=== PATIENT | female | born 1945 | race Caucasian/White ===

== ENCOUNTER 2020-03-24 12:29 | Outpatient (CLI) | payer MEDICARE, SELFPAY ==
--- NOTE | 2020-03-26 12:29 | WPDSIXMINUTE ---
Six Minute Walk Six Minute Walk: The patients O2 sats started at 95% and dropped as low as 90% Total walk distance 243.84 meters conclusion: Although there was significant exertional hypoxia this patient patient does not qualify for home oxygen therapy.
== END 2020-03-24 12:30 | disposition home or self-care (01) ==
PROVIDERS: PCP Family Medicine; Visit Provider Internal Medicine Critical Care Medicine
DX: R06.02 Shortness of breath (principal)
CPT/HCPCS: 94618

== ENCOUNTER 2020-06-14 10:46 | Outpatient (CLI) | payer MEDICARE, SELFPAY ==
--- NOTE | ~2020-06-14 | CT_ITS ---
EXAMINATION: CT chest w con DATE: 06/14/2020 12:19 INDICATION: Malignant neoplasm of the right upper lobe TECHNIQUE: Transaxial computed tomographic images of the chest were obtained after the administration of 75 cc of Omnipaque 350 intravenous contrast. The dose-length product (DLP) was 255.81 mGy-cm. Ite rative reconstruction was used. COMPARISON: 12/22/2019, 12/12/2019 FINDINGS: There is moderate emphysema. A 2.1 cm spiculated nodule of the right upper lobe is not sign ificantly changed. A 2.6 cm spiculated nodule of the left upper lobe is also not significantly change d. There is scarring in the lung apices. No pleural effusion or pneumothorax is identified. No pathol ogically enlarged thoracic lymph nodes are identified. The heart size is normal. There is a moderate- sized sliding hiatal hernia. There is mild thoracic spondylosis. IMPRESSION: 1. Stable spiculated nodules of the upper lobes, consistent with malignancy. Reviewed, dictated and finalized at location A. [employer]
[2020-06-14 12:03] LABS: Estimated Glomerular Filt Rate 44
== END 2020-06-14 10:47 | disposition home or self-care (01) ==
PROVIDERS: Family Provider Family Medicine; PCP Family Medicine; Visit Provider Internal Medicine Hematology & Oncology
DX: C34.11 Malignant neoplasm of upper lobe, right bronchus or lung (principal)
CPT/HCPCS: 71260; Q9967

== ENCOUNTER 2020-07-05 15:03 | Outpatient (CLI) | payer MEDICARE, SELFPAY ==
[2020-07-05 15:28] LABS: Basophils Absolute Auto 0.1 K/mm3 (0.0-0.1); Basophils Percent Auto 1.3 % (0.2-1.2); Eosinophils Absolute Auto 0.2 K/mm3 (0-0.3); Eosinophils Percent Auto 4.4 % (0-4.4); Hematocrit 34.9 % (37.0-47.0); Immature Granulocyte Absolute 0.01 K/mm3 (0.00-0.031); Immature Granulocyte Percent A 0.2 % (0-0.5); Lymphocytes Absolute Auto 0.99 K/mm3 (0.9-3.2); Lymphocytes Percent Auto 21.9 % (18.3-44.2); Mean Corpuscular HGB Conc 31.5 g/dl (32-36); Mean Corpuscular Hemoglobin 30.1 pg (26-34); Mean Corpuscular Volume 95.4 fl (80-100); Mean Platelet Volume 8.7 fl (7.4-10.4); Monocytes Absolute Auto 0.5 K/mm3 (0.1-0.6); Monocytes Percent Auto 11.3 % (2.6-8.5); Neutrophils Absolute Auto 2.8 K/mm3 (1.3-6.7); Neutrophils Percent Auto 60.9 % (45.5-73.1); Platelet Count Result 260 k/mm3 (150-375); Red Blood Count 3.66 M/mm3 (4.2-5.4); Red Cell Distribution Width 14.6 % (11.5-14.5); White Blood Count 4.5 K/mm3 (4.5-10.0)
[2020-07-05 15:33] LABS: Blood Urea Nitrogen 13 mg/dL (8-26); Carbon Dioxide 26 mmol/L (22-30); Chloride 105 mmol/L (98-109); Estimated Glomerular Filt Rate 40; Glucose 93 mg/dL (70-105); Potassium 4.2 mmol/L (3.5-4.9); Sodium 140 mmol/L (138-146)
[2020-07-05 17:29] LABS: Alanine Aminotransferase 17 U/L (4-35); Albumin Level 3.8 g/dL (3.5-5.1); Alkaline Phosphatase 98 U/L (38-126); Anion Gap 6 mmol/L (8-16); Aspartate Amino Transferase 27 U/L (14-36); Bilirubin,Total 0.8 mg/dL (0.2-1.3); Blood Urea Nitrogen 14 mg/dL (7-17); Calcium 9.1 mg/dL (8.4-10.2); Carbon Dioxide 26 mmol/L (22-30); Chloride 107 mmol/L (98-107); Estimated Glomerular Filt Rate 44; Glucose 96 mg/dL (65-105); Potassium 4.4 mmol/L (3.4-5.0); Sodium 139 mmol/L (137-145)
== END 2020-07-05 15:04 | disposition home or self-care (01) ==
LOC: ANHLAB 15:04
PROVIDERS: PCP Family Medicine; Visit Provider Internal Medicine Hematology & Oncology
DX: C34.11 Malignant neoplasm of upper lobe, right bronchus or lung (principal)
CPT/HCPCS: 36415; 80048; 80053; 85025

== ENCOUNTER 2020-09-06 13:33 | Outpatient (CLI) | payer MEDICARE, SELFPAY ==
--- NOTE | ~2020-09-06 | CT_ITS ---
EXAMINATION: CT diagnostic chest w con DATE: 09/06/2020 14:27 INDICATION: Right lung cancer TECHNIQUE: Computed tomography (CT) of the chest was performed with 75 cc Omnipaque 350 intravenous c ontrast. Automated exposure control and iterative reconstruction technique were employed. Exam dose: 224.72 mGy-cm total exam DLP. COMPARISON: 06/14/2020, 12/02/2019, 05/28/2019 CT chest examination 12/22/2019 PET/CT examination FINDINGS: There is interval diminished size of the highly PET positive right anterior apical lung mas s compared to 11/28/2019, currently measuring 18 mm maximally compared to approximately 21 mm maximal d imension on 12/02/2019. There is little interval change since 06/14/2020 There is mild improvement of mediastinal lymphadenopathy since 12/02/2019. Bilateral prominent apical irregular soft tissue scarring appears stable. Emphysematous changes are noted. No pulmonary infiltrate or consolidation or interval mass lesion is detected. Normal heart size. No thoracic aortic aneurysm or dissection. There is thoracic aortic and great vess el calcification. No pericardial or pleural effusion. Small sliding hiatal hernia. Normal morphology of the adrenal glands. No suspicious osteolytic or osteoblastic lesions are noted. IMPRESSION: Diminished size of right anterior apical pulmonary malignancy since 12/02/2019, relatively stable since 06/14/2020 Bilateral apical irregular stable soft tissue opacities, stable since 12/02/2019, possibly due to scarr ing. Malignancy is not definitively excluded. Continued CT and possibly PET/CT imaging follow-up shou ld be considered. Emphysema Reviewed, dictated and finalized at Location A. Reviewed, dictated and finalized at location A. IMPRESSION: Diminished size of right anterior apical pulmonary malignancy sinc e 12/02/2019, relatively stable since 06/14/2020 Bilateral apical irregular stable soft tissue opacities, stable since 12/02/2019, possibly due to scarring. Malignancy is not definitively excluded. Continued C T and possibly PET/CT imaging follow-up should be considered. Emphysema
[2020-09-06 14:17] LABS: Estimated Glomerular Filt Rate 40
== END 2020-09-06 13:34 | disposition home or self-care (01) ==
PROVIDERS: PCP Family Medicine; Visit Provider Internal Medicine Hematology & Oncology
DX: C34.11 Malignant neoplasm of upper lobe, right bronchus or lung (principal); J43.9 Emphysema, unspecified; R91.8 Other nonspecific abnormal finding of lung field
CPT/HCPCS: 71260; Q9967

== ENCOUNTER 2020-09-13 13:47 | Outpatient (CLI) | payer MEDICARE, SELFPAY ==
[2020-09-13 14:01] LABS: Basophils Percent Auto 0.5 % (0.2-1.2); Eosinophils Absolute Auto 0.1 K/mm3 (0-0.3); Eosinophils Percent Auto 2.4 % (0-4.4); Immature Granulocyte Absolute 0.03 K/mm3 (0.00-0.031); Immature Granulocyte Percent A 0.5 % (0-0.5); Lymphocytes Absolute Auto 1.21 K/mm3 (0.9-3.2); Lymphocytes Percent Auto 20.4 % (18.3-44.2); Mean Corpuscular Hemoglobin 33.3 pg (26-34); Mean Corpuscular Volume 104.2 fl (80-100); Mean Platelet Volume 8.3 fl (7.4-10.4); Monocytes Absolute Auto 0.6 K/mm3 (0.1-0.6); Monocytes Percent Auto 9.8 % (2.6-8.5); Neutrophils Percent Auto 66.4 % (45.5-73.1); Platelet Count Result 391 k/mm3 (150-375); Red Cell Distribution Width 19.9 % (11.5-14.5); White Blood Count 5.9 K/mm3 (4.5-10.0)
[2020-09-13 14:04] LABS: Blood Urea Nitrogen 15 mg/dL (8-26); Carbon Dioxide 26 mmol/L (22-30); Chloride 105 mmol/L (98-109); Estimated Glomerular Filt Rate 31; Glucose 104 mg/dL (70-105); Potassium 4.2 mmol/L (3.5-4.9); Sodium 139 mmol/L (138-146)
[2020-09-13 15:52] LABS: Immature Reticulocyte Fraction 15.1 % (3.0-15.9); Reticulocyte Hemoglobin Conten 39.5 pg (28.2-35.7); Reticulocyte Percent 1.86 % (0.7-4.3); Reticulocytes Absolute 0.05 B/L (32.2-175.7)
[2020-09-13 16:37] LABS: Iron 109 ug/dL (37-170)
[2020-09-13 16:40] LABS: Alanine Aminotransferase 17 U/L (4-35); Albumin Level 4.1 g/dL (3.5-5.1); Alkaline Phosphatase 119 U/L (38-126); Anion Gap 8 mmol/L (8-16); Aspartate Amino Transferase 26 U/L (14-36); Bilirubin,Total 0.8 mg/dL (0.2-1.3); Blood Urea Nitrogen 16 mg/dL (7-17); Calcium 9.5 mg/dL (8.4-10.2); Carbon Dioxide 25 mmol/L (22-30); Chloride 107 mmol/L (98-107); Estimated Glomerular Filt Rate 37; Glucose 107 mg/dL (65-105); Lactate Dehydrogenase 427 U/L (313-618); Potassium 4.4 mmol/L (3.4-5.0); Sodium 140 mmol/L (137-145)
[2020-09-13 16:51] LABS: Percent Iron Saturation 42 % (20-50)
[2020-09-13 18:02] LABS: Folic Acid > 20.0 ng/mL (2.76->20)
== END 2020-09-13 13:48 | disposition home or self-care (01) ==
LOC: ANHLAB 13:49
PROVIDERS: PCP Family Medicine; Visit Provider Internal Medicine Hematology & Oncology
DX: C34.11 Malignant neoplasm of upper lobe, right bronchus or lung (principal); D64.9 Anemia, unspecified; R53.83 Other fatigue
CPT/HCPCS: 36415; 80048; 80053; 82607; 82728; 82746; 83540; 83550; 83615; 84443; 85025; 85046

== ENCOUNTER 2020-10-25 13:12 | Outpatient (CLI) | payer MEDICARE, SELFPAY ==
--- NOTE | ~2020-10-25 | US_ITS ---
EXAMINATION: US venous doppler [facility] DATE: 10/25/2020 14:14 INDICATION: Lower limb swelling TECHNIQUE: Grayscale ultrasound images without and with compression and Doppler ultrasound images of the bilateral lower extremity veins were obtained. COMPARISON: None. FINDINGS: The visualized portions of right common femoral vein, profunda (deep) femoral vein, femoral vein, pop liteal vein, posterior tibial veins, peroneal veins, gastrocnemius vein and greater saphenous vein ou tflow are patent. The visualized portions of left common femoral vein, profunda femoral vein, femoral vein, popliteal v ein, posterior tibial veins, peroneal veins, gastrocnemius vein and greater saphenous vein outflow ar e patent. IMPRESSION: 1. No deep venous thrombosis in either lower limb. Reviewed, dictated and finalized at location A.
== END 2020-10-25 13:13 | disposition home or self-care (01) ==
PROVIDERS: PCP Family Medicine; Visit Provider Internal Medicine Nephrology
DX: R60.0 Localized edema (principal)
CPT/HCPCS: 93970

== ENCOUNTER 2020-10-31 13:40 | Outpatient (CLI) | payer MEDICARE, SELFPAY ==
[2020-10-31 17:42] LABS: Erythrocyte Sedimentation Rate > 140 mm/hr (0-20)
[2020-10-31 19:00] LABS: Complement C3 130 mg/dL (88-165)
[2020-10-31 19:18] LABS: Anion Gap 12 mmol/L (8-16); Blood Urea Nitrogen 19 mg/dL (7-17); Calcium 9.9 mg/dL (8.4-10.2); Carbon Dioxide 23 mmol/L (22-30); Chloride 105 mmol/L (98-107); Estimated Glomerular Filt Rate 37; Glucose 125 mg/dL (65-105); Phosphorus 3.5 mg/dL (2.5-4.5); Potassium 4.3 mmol/L (3.4-5.0); Sodium 140 mmol/L (137-145)
[2020-11-02 09:34] LABS: Kappa\\Lambda Light Chains 0.66 (0.26-1.65); Lambda Light Chain 60.9 mg/L (5.7-26.3)
[2020-11-02 13:37] LABS: Complement Total CH50 50 U/mL (31-60)
[2020-11-04 05:48] LABS: Albumin 19 %; Creat 24 Hr 1.05 g/24 h (0.50-2.15); Measured Kappa Chains <1.00 mg/dL (<2.00); Measured Lambda Chains <1.00 mg/dL (<2.00); Pro/Creat Ratio 87 mg/g creat (<=114)
== END 2020-10-31 13:41 | disposition home or self-care (01) ==
PROVIDERS: PCP Family Medicine; Visit Provider Internal Medicine Hematology & Oncology
DX: R94.4 Abnormal results of kidney function studies (principal)
CPT/HCPCS: 36415; 80069; 83883; 85652; 86038; 86160; 86162; 86334; 86335

== ENCOUNTER 2020-11-01 12:24 | Outpatient (CLI) | payer MEDICARE, SELFPAY ==
[2020-11-01 16:38] LABS: Add Urine Microscopic? YES; Appearance Urine Cloudy (Clear); Bacteria Urine Trace /hpf; Bilirubin Urine Negative (Negative); Blood Urine Negative (Negative); Color Urine Amber (Yellow); Glucose Urine UA Negative (Negative); Ketones Urine Negative (Negative); Leukocyte Esterase Ur Negative LEU/UL (NEGATIVE); Mucus Urine Heavy /lpf; Nitrate Urine Negative (Negative); Protein Urine 1+ mg/dL (Negative); RBC Urine 0-2 /hpf (0-2); Specific Grav Ur 1.027 (1.001-1.035); Squamous Epithelial Cell Urine Few /hpf (Few); WBC Urine 0-3 /hpf (0-3)
[2020-11-01 17:03] LABS: Creatinine Urine > 346.5 mg/dL; Total Protein Urine Random 6 mg/dL
[2020-11-01 17:12] LABS: Sodium Urine Random 35 meq/L
[2020-11-01 17:22] LABS: Ur Ttl Prot Creatinine Ratio > 0.00 mg/mg (0-0.20)
[2020-11-01 17:23] LABS: Eosinophil Urine None Seen % (None Seen)
== END 2020-11-01 12:25 | disposition home or self-care (01) ==
LOC: ANHLAB 12:27
PROVIDERS: PCP Family Medicine; Visit Provider Internal Medicine Nephrology
DX: R94.4 Abnormal results of kidney function studies (principal)
CPT/HCPCS: 81001; 82570; 84156; 84300; 85999

== ENCOUNTER 2020-11-16 13:45 | Outpatient (CLI) | payer MEDICARE, SELFPAY ==
--- NOTE | ~2020-11-16 | US_ITS ---
EXAMINATION: US art doppler w press UE BI DATE: 11/16/2020 14:39 INDICATION: Peripheral vascular disease, unspecified. TECHNIQUE: Segmental pressures and plethysmographic and Doppler waveforms of the upper extremity elisha juvenal were obtained. COMPARISON: Chest CT 09/06/2020 FINDINGS: Right and left brachial artery pressures of 156 mm Hg and 146 mm Hg, respectively, are concordant (no rmal difference <= 30 mmHg). The right finger:brachial systolic pressure ratio is 0.78 (normal > 0.8) . Arterial Doppler waveforms demonstrate normal upstroke (normal upstroke < 0.2 s). The left finger:brachial systolic pressure ratio is 0.75. Arterial Doppler waveforms demonstrate norm al upstroke. IMPRESSION: 1. Mildly decreased bilateral finger:brachial systolic pressure ratios, consistent with arterial occl usive disease. Reviewed, dictated and finalized at location A. IMPRESSION: 1. Mildly decreased bilateral finger:brachial systolic pressure ratios, consist ent with arterial occlusive disease.
--- NOTE | ~2020-11-16 | US_ITS ---
US renal BI 11/16/2020 14:38 Procedure: Realtime transabdominal ultrasound of the kidneys and bladder. Indication: Abnormal renal function Comparison: No prior studies for comparison. Findings: Renal echotexture is normal bilaterally without hydronephrosis, contour deforming mass or r enal calculus. The right kidney measures 8.5 cm and left kidney measures 8.4 cm. Bladder within norm al limits. Impression: 1: Unremarkable renal ultrasound. No stones, masses or hydronephrosis. Reviewed, dictated and finalized at location B. Impression: 1: Unremarkable renal ultrasound. No stones, masses or hydronephrosis.
== END 2020-11-16 13:46 | disposition home or self-care (01) ==
PROVIDERS: PCP Family Medicine; Referring Provider Physician Assistant; Visit Provider Internal Medicine Nephrology
DX: I73.9 Peripheral vascular disease, unspecified (principal)
CPT/HCPCS: 76775; 93923

== ENCOUNTER 2020-12-12 11:06 | Outpatient (CLI) | payer MEDICARE, SELFPAY ==
--- NOTE | ~2020-12-12 | CT_ITS ---
EXAMINATION: CT diagnostic chest wo con DATE: 12/12/2020 11:32 INDICATION: Malignant neoplasm of right upper lobe TECHNIQUE: Computed tomography (CT) of the chest was performed without intravenous contrast. Automate d exposure control and iterative reconstruction technique were employed. Exam dose: 253.89 mGy-cm to rocío exam DLP. COMPARISON: 09/06/2020 CT chest 06/14/2020 CT chest 12/02/2019 CT chest 05/28/2019 CT chest FINDINGS: There is chronic irregular soft tissue density in the anterolateral left apical area, relat ively stable since 05/28/2019. There is stability since 09/06/2020 of a prior approximately 8 mm spiculated density in the anterior r ight apical area, measuring up to 1.9 cm approximate maximal dimension currently, possibly residual m alignancy or possible postradiation change if there has been any such treatment. Correlation with cli nical history is recommended. PET/CT imaging may be helpful for further evaluation. There is chronic relatively stable right lateral apical scarring and scarring in the upper aspect of the superior segment of the right lower lobe. New 5 mm nodule is noted in the posterolateral aspect of the lingula (series 4 image 34), not present on 05/28/2019 09/06/2020. Stable linear discoid probable scarring in the lateral left lower lobe. No pulmonary infiltrate or consolidation. Emphysematous changes are again noted. Small sliding hiatal hernia. Normal heart size. No pericardial or pleural effusion. No thoracic aortic aneurysm is evident. No hilar or mediastinal mass lesion or lymphadenopathy is andrey dent. Normal morphology of the adrenal glands. IMPRESSION: No significant change since 09/06/2020 at anterior right apical irregular opacity which m ay represent postradiation residual if there was such therapy. Residual or recurrent malignancy is no t excluded. Consider continued CT follow-up and/or PET/CT correlation as clinically appropriate. Relatively stable areas of scarring are noted in the right lateral apical area, left apical area and superior segment of the right lower lobe New 5 mm nodule in the posterolateral lingula since 09/06/2020. Small primary lung cancer cannot be ex cluded. Emphysema Reviewed, dictated and finalized at Location A. Reviewed, dictated and finalized at location A. IMPRESSION: No significant change since 09/06/2020 at anterior right apical irr egular opacity which may represent postradiation residual if there was such the rapy. Residual or recurrent malignancy is not excluded. Consider continued CT f ollow-up and/or PET/CT correlation as clinically appropriate. Relatively stable areas of scarring are noted in the right lateral apical area, left apical area and superior segment of the right lower lobe New 5 mm nodule in the posterolateral lingula since 09/06/2020. Small primary mars ng cancer cannot be excluded. Emphysema
== END 2020-12-12 11:07 | disposition home or self-care (01) ==
LOC: ANHIMG 11:10
PROVIDERS: PCP Family Medicine; Visit Provider Radiology Radiation Oncology
DX: C34.11 Malignant neoplasm of upper lobe, right bronchus or lung (principal); J43.9 Emphysema, unspecified; R91.8 Other nonspecific abnormal finding of lung field
CPT/HCPCS: 71250

== ENCOUNTER 2020-12-21 08:38 | Outpatient (CLI) | payer MEDICARE, SELFPAY ==
--- NOTE | ~2020-12-21 | PE_ITS ---
EXAMINATION: PET skull to mid thigh DATE: 12/21/2020 10:40 INDICATION: Malignant neoplasm of the right upper lobe bronchus TECHNIQUE: Blood glucose level was 90 mg/dL. 9.448 mCi of 18-fluorodeoxyglucose (18-FDG) was administ ered i.v. Low dose computed tomography (CT) images were acquired from the base of the brain to the pr oximal thighs for attenuation correction and anatomic localization. Positron emission tomography (PET ) images were acquired in the same distribution beginning 57 minutes after injection. Images includin g fused PET/CT images were reconstructed in axial, coronal, and sagittal planes. Automated exposure c ontrol technique was employed. The dose-length product was 924.77mGy-cm. COMPARISON: PET/CT dated 12/22/[address] dated 12/12/2020 FINDINGS: Head/neck: There is symmetric increased activity in the oral cavity, palatine tonsils, parotid glands, submandi bular glands, laryngeal muscles and ocular muscles without CT correlate, likely physiologic. Mild inc reased uptake at the left C7-T1 facet joint where there is severe associated facet osteoarthritis. No pathologically enlarged cervical lymphadenopathy or suspicious foci of increased FDG uptake in the v isualized head or neck. Chest: Moderate emphysema. There is a 2.4 x 1.8 cm thick crescentic nodular opacity at the anterior apex of the right lung at the site of a prior 2.4 x 1.6 cm round spiculated nodule with high degree of FDG up take. The FDG uptake is markedly decreased in the current study with maximal SUV of 2.7 which is less than that of the liver which demonstrates a maximal SUV of 3.6 with a mean of 2.6. There is increased FDG uptake with maximal SUV of 5.0 associated with a persistent irregular nodular opacity anterior apex of the left lung. This appears comprised of approximately 2.1 x 1.7 cm spiculat ed nodule superimposed on a more linear band of atelectasis/scarring the latter which appears to have increased in thickness since CT dated 05/28/2019 but with no significant interval change in the centra l spiculated nodule. There is some groundglass opacity and architectural distortion at the posterior right apex with sugge stion of tethering of the major fissure to a region of peripheral pleural thickening and likely minim al round atelectasis at the posterior apical segment of the right lower lobe which has been present s alejandrina 05/28/2019 and images without significant FDG uptake. No pleural effusion. Heart size is normal. No pericardial effusion. No pathologically enlarged or FDG avid thoracic lympha denopathy. There are several foci of mild increased FDG uptake in the posterior chest wall, the most intense with maximal SUV of 2.9. These localise to the musculature along the medial margins of the le ft and to lesser degree degree right scapula which are without radiologic correlate an which are like ly physiologic. Additional likely physiologic mildly increased synovial uptake at the bilateral shoul ders with mild asymmetric increased uptake at the rotator cuff insertion along the right greater tube rosity likely related to rotator cuff disease. Additional mild synovial uptake at the bilateral elbow s and in the wrists and hands suggesting arthritis either degenerative or inflammatory. Abdomen/pelvis/proximal thighs: Physiologic renal accumulation and excretion of FDG activity in the kidneys, bladder and along portio ns of ureters. Normal degree and heterogenous pattern of increased uptake throughout the liver withou t radiologic correlate or dominant FDG avid lesion. The gallbladder, pancreas, spleen and bilateral a drenal glands are normal. Mild uptake scattered throughout the bowels without radiologic correlate, a lso likely physiologic. Appendix is normal. The uterus is not identified and has likely been surgical ly resected. There is diffuse mild increased in bone marrow FDG uptake most prominent throughout the spine a
[2020-12-21 09:10] LABS: Glucose Point of Care 90 mg/dl (65-105)
== END 2020-12-21 08:39 | disposition home or self-care (01) ==
PROVIDERS: PCP Family Medicine; Visit Provider Radiology Radiation Oncology
DX: C34.11 Malignant neoplasm of upper lobe, right bronchus or lung (principal); R91.8 Other nonspecific abnormal finding of lung field
CPT/HCPCS: 78815; A9552

== ENCOUNTER 2021-02-01 14:20 | Outpatient (CLI) | payer MEDICARE, SELFPAY ==
--- NOTE | ~2021-02-01 | XR_ITS ---
Please refer to right foot series dated 02/01/2021 for details. Reviewed, dictated and finalized at location A.
--- NOTE | ~2021-02-01 | XR_ITS ---
XR hand BI arthritis min 3V 02/01/2021 15:06 Indication: Osteoarthritis Procedure: 4 views each hand Comparison: No prior studies for comparison. Findings: Diffuse osteopenia. There is mild polyarticular osteoarthritis of both hands including the MCP and interphalangeal joints bilaterally. No erosive changes are identified. No acute fracture or t raumatic malalignment. No significant soft tissue abnormality. No foreign body. 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 2: Osteopenia. Reviewed, dictated and finalized at location A. 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 2: Osteopenia.
--- NOTE | ~2021-02-01 | XR_ITS ---
XR foot RT standing 2V 02/01/2021 15:06 Indication: Bilateral foot pain. Rheumatoid arthritis. Procedure: 2 views of each foot Comparison: No prior studies for comparison. Findings: Osteopenia. There are erosions of the left second metatarsal head. Small degenerative calca mylene enthesophytes. No fracture or traumatic malalignment. There are mild degenerative changes of the first metatarsal-phalangeal joints. Impression: 1: Erosions of the left second metatarsal head, suspicious for inflammatory arthropathy. 2: Osteopenia. Reviewed, dictated and finalized at location A. Impression: 1: Erosions of the left second metatarsal head, suspicious for inflammatory art hropathy. 2: Osteopenia.
== END 2021-02-01 14:21 | disposition home or self-care (01) ==
LOC: ANHIMG 14:24
PROVIDERS: PCP Family Medicine; Visit Provider Internal Medicine
DX: M85.842 Other specified disorders of bone density and structure, left hand (principal); M85.841 Other specified disorders of bone density and structure, right hand; M19.042 Primary osteoarthritis, left hand; M19.041 Primary osteoarthritis, right hand; M06.09 Rheumatoid arthritis without rheumatoid factor, multiple sites
CPT/HCPCS: 36415; 73130; 73620; 80053; 81001; 85027; 86038; 86140; 86200; 86430

== ENCOUNTER 2021-02-01 15:28 | Outpatient (CLI) | payer MEDICARE, SELFPAY ==
[2021-02-01 15:43] LABS: Hematocrit 36.4 % (37.0-47.0); Hemoglobin 11.7 g/dL (12.0-15.0); Mean Corpuscular HGB Conc 32.1 g/dl (32-36); Mean Corpuscular Hemoglobin 32.2 pg (26-34); Mean Corpuscular Volume 100.3 fl (80-100); Mean Platelet Volume 8.5 fl (7.4-10.4); Platelet Count Result 361 k/mm3 (150-375); Red Blood Count 3.63 M/mm3 (4.2-5.4); Red Cell Distribution Width 12.7 % (11.5-14.5); White Blood Count 6.5 K/mm3 (4.5-10.0)
[2021-02-01 16:38] LABS: Alanine Aminotransferase 20 U/L (4-35); Albumin Level 4.3 g/dL (3.5-5.1); Alkaline Phosphatase 135 U/L (38-126); Anion Gap 8 mmol/L (8-16); Aspartate Amino Transferase 53 U/L (14-36); Bilirubin,Total 0.6 mg/dL (0.2-1.3); Blood Urea Nitrogen 15 mg/dL (7-17); CRP 0.8 mg/dL (<1.0); Calcium 9.8 mg/dL (8.4-10.2); Carbon Dioxide 26 mmol/L (22-30); Chloride 103 mmol/L (98-107); Estimated Glomerular Filt Rate 36; Glucose 106 mg/dL (65-110); Potassium 3.9 mmol/L (3.4-5.0); Sodium 137 mmol/L (137-145)
[2021-02-01 16:39] LABS: Add Urine Microscopic? YES; Appearance Urine Clear (Clear); Bilirubin Urine Negative (Negative); Blood Urine Negative (Negative); Color Urine Amber (Yellow); Glucose Urine UA Negative (Negative); Ketones Urine Negative (Negative); Leukocyte Esterase Ur Negative LEU/UL (Negative); Mucus Urine Heavy /lpf; Nitrate Urine Negative (Negative); Protein Urine 2+ mg/dL (Negative); Specific Grav Ur 1.025 (1.001-1.035); Squamous Epithelial Cell Urine Many /hpf (Few)
[2021-02-04 15:53] LABS: Anti Cyclic Citrullinated Pept >250 Units (<20)
== END 2021-02-01 15:29 | disposition home or self-care (01) ==
LOC: ANHLAB 15:31
PROVIDERS: PCP Family Medicine; Visit Provider Internal Medicine
DX: M19.90 Unspecified osteoarthritis, unspecified site (principal); M06.09 Rheumatoid arthritis without rheumatoid factor, multiple sites
CPT/HCPCS: 36415; 80053; 81001; 85027; 86038; 86140; 86200; 86430

== ENCOUNTER 2021-02-20 14:15 | Outpatient (CLI) | payer MEDICARE, SELFPAY ==
[2021-02-20 16:54] LABS: Creatinine Urine 279.4 mg/dL; Total Protein Urine Random 12 mg/dL; Ur Ttl Prot Creatinine Ratio 0.04 mg/mg (0-0.20)
[2021-02-20 17:12] LABS: Albumin Level 4.1 g/dL (3.5-5.1); Anion Gap 7 mmol/L (8-16); Blood Urea Nitrogen 13 mg/dL (7-17); Calcium 9.4 mg/dL (8.4-10.2); Carbon Dioxide 27 mmol/L (22-30); Chloride 105 mmol/L (98-107); Estimated Glomerular Filt Rate 40; Glucose 115 mg/dL (65-110); Phosphorus 3.6 mg/dL (2.5-4.5); Sodium 139 mmol/L (137-145)
== END 2021-02-20 14:16 | disposition home or self-care (01) ==
LOC: ANHLAB 14:19
PROVIDERS: PCP Family Medicine; Visit Provider Internal Medicine Nephrology
DX: R94.4 Abnormal results of kidney function studies (principal)
CPT/HCPCS: 36415; 80069; 82570; 84156

== ENCOUNTER 2021-02-26 12:33 | Outpatient (CLI) | payer MEDICARE, SELFPAY ==
--- NOTE | ~2021-02-26 | CT_ITS ---
EXAMINATION:CT diagnostic chest wo con DATE: 02/26/2021 12:54 INDICATION: Non-small cell cancer of right lung. TECHNIQUE: Computed tomography (CT) of the chest was performed without intravenous contrast. Automate d exposure control and iterative reconstruction technique were employed. The dose-length product (DLP ) was 440.39 mGy-cm. COMPARISON: Chest CT 12/12/2020, 06/14/2020, 12/02/2019, 05/28/2019, PET/CT 10/19/14 FINDINGS: There is mild emphysema. There are airspace opacities and septal thickening involving the u pper lobes and superior segment right lower lobe with architectural distortion, consistent with scarr ing, much of which was present on 10/19/14. There are airspace opacities and septal thickening in righ t upper lobe, consistent with radiation fibrosis. The area of the malignancy in apical segment right upper lobe seen best on 12/02/19 is obscured by radiation fibrosis. No pleural effusion. The heart size is normal. There are coronary artery calcifications. No pericardial effusion. There is a 10 x 13 mm right paratracheal lymph node, stable from 10/19/14, likely benign. There is a small sliding hiatal he rnia. The adrenal glands are normal. There is thoracic kyphosis and mild spondylosis. IMPRESSION: 1. Radiation fibrosis in right upper lobe. Chronic scarring in the upper lobes and superior segment r ight lower lobe. No specific evidence of metastatic disease. Reviewed, dictated and finalized at location A. IMPRESSION: 1. Radiation fibrosis in right upper lobe. Chronic scarring in the upper lobes and superior segment right lower lobe. No specific evidence of metastatic disea se.
== END 2021-02-26 12:34 | disposition home or self-care (01) ==
LOC: ANHIMG 12:34
PROVIDERS: PCP Family Medicine; Visit Provider Internal Medicine Hematology & Oncology
DX: C34.91 Malignant neoplasm of unspecified part of right bronchus or lung (principal); J70.1 Chronic and other pulmonary manifestations due to radiation
CPT/HCPCS: 71250

== ENCOUNTER 2021-06-13 14:03 | Outpatient (CLI) | payer MEDICARE, SELFPAY ==
[2021-06-13 14:26] LABS: Hematocrit 37.4 % (37.0-47.0); Hemoglobin 11.3 g/dL (12.0-15.0); Mean Corpuscular HGB Conc 30.2 g/dl (32-36); Mean Corpuscular Hemoglobin 29.9 pg (26-34); Mean Corpuscular Volume 98.9 fl (80-100); Mean Platelet Volume 8.6 fl (7.4-10.4); Platelet Count Result 367 k/mm3 (150-375); Red Blood Count 3.78 M/mm3 (4.2-5.4); Red Cell Distribution Width 13.5 % (11.5-14.5); White Blood Count 5.7 K/mm3 (4.5-10.0)
[2021-06-13 15:07] LABS: Albumin Level 3.9 g/dL (3.5-5.1); Anion Gap 8 mmol/L (8-16); Blood Urea Nitrogen 16 mg/dL (7-17); Calcium 9.3 mg/dL (8.4-10.2); Carbon Dioxide 27 mmol/L (22-30); Chloride 102 mmol/L (98-107); Estimated Glomerular Filt Rate 36; Glucose 107 mg/dL (65-110); Phosphorus 3.6 mg/dL (2.5-4.5); Potassium 4.5 mmol/L (3.4-5.0); Sodium 137 mmol/L (137-145)
[2021-06-13 15:13] LABS: Creatinine Urine 277.4 mg/dL; Total Protein Urine Random 12 mg/dL; Ur Ttl Prot Creatinine Ratio 0.04 mg/mg (0-0.20)
[2021-06-13 15:17] LABS: Parathyroid Intact 111.4 pg/mL (7.5-53.5)
== END 2021-06-13 14:04 | disposition home or self-care (01) ==
LOC: ANHLAB 14:06
PROVIDERS: Internal Medicine Nephrology; PCP Family Medicine; Visit Provider Internal Medicine Hematology & Oncology
DX: N18.32 Chronic kidney disease, stage 3b (principal)
CPT/HCPCS: 36415; 80069; 82570; 83970; 84156; 85027

== ENCOUNTER 2021-06-26 13:26 | Outpatient (CLI) | payer MEDICARE, SELFPAY ==
--- NOTE | ~2021-06-26 | CT_ITS ---
EXAMINATION: CT diagnostic chest wo con EXAM DATE: 06/26/2021 13:45 INDICATION: Non Small Cell Cancer Rt Lung. TECHNIQUE: Spiral CT of the chest without contrast. Axial, coronal and sagittal images of the chest were reviewed. Coronal maximum intensity pixel images of chest reviewed. The dose-length product ( DLP) for this examination was 181.43 mGy-cm. The exposure was tailored according to patient size (au to mA exposure control), and iterative reconstruction (ASIR) was used as additional dose reduction te chnique. Comparison is made to prior examination from 02/26/2021. FINDINGS: The treated right upper lobe malignancy appears stable in appearance and size. Mild increa se in the left apical spiculated mass size and volume Development of scattered other pulmonary nodule s in the upper and lower lobes consistent with metastatic disease. There is moderate emphysema. There are no pleural or pericardial effusions. Tracheobronchial tree is patent. Mild mediastinal lymph adenopathy stable. There is no pneumothorax. Heart normal in size. There is mild coronary arteri al calcification, arterial sclerosis. Small gastroesophageal hiatal hernia. There is thoracic spond ylosis without osteoblastic or osteolytic lesions identified. IMPRESSION: 1. Development of scattered pulmonary nodules likely metastatic disease. 2. Increase in size of left upper lobe masslike opacity. 3. Stable right upper lobe malignancy. 4. Stable mildly enlarged lymph nodes. 5. Moderate emphysema. 6. Small hiatal hernia. Reviewed, dictated and finalized at location . 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
== END 2021-06-26 13:27 | disposition home or self-care (01) ==
PROVIDERS: PCP Family Medicine; Visit Provider Internal Medicine Hematology & Oncology
DX: C34.91 Malignant neoplasm of unspecified part of right bronchus or lung (principal); R91.8 Other nonspecific abnormal finding of lung field; R59.0 Localized enlarged lymph nodes; J43.9 Emphysema, unspecified; K44.9 Diaphragmatic hernia without obstruction or gangrene
CPT/HCPCS: 71250

== ENCOUNTER 2021-08-07 09:21 | Outpatient (CLI) | payer MEDICARE, SELFPAY ==
--- NOTE | ~2021-08-07 | PE_ITS ---
EXAMINATION: PET skull to mid thigh DATE: 08/07/2021 11:20 INDICATION: Non-small cell carcinoma of right lung. TECHNIQUE: Blood glucose level was 82 mg/dL. 8.279 mCi of 18-fluorodeoxyglucose (18-FDG) was administ ered i.v. Low dose computed tomography (CT) images were acquired from the base of the brain to the pr oximal thighs for attenuation correction and anatomic localization. Automated exposure control was em ployed. Dose-length product (DLP) was 918 mGy-cm. Positron emission tomography (PET) images were acqu ired in the same distribution. COMPARISON: PET CT 12/21/2020, 10/19/14, chest CT 06/26/2021, 12/02/19 FINDINGS: Head/neck: There is increased activity in the oral cavity, pharynx, major salivary glands, and glotti s without abnormal CT correlate, likely physiologic. There are no pathologically enlarged lymph nodes . Chest: There is moderate emphysema. There is chronic scarring at the lung apices. There is a nodule i n right lung upper lobe with surrounding airspace and groundglass opacities without increased activit y, consistent with primary bronchogenic carcinoma and changes of radiation therapy. There are airspac e opacities without increased activity in superior segment right lower lobe, likely changes of radiat ion therapy. There are greater than 20 scattered nodules in the lungs measuring up to 12 mm, some of which are cavitary, with increased activity. There is a 4.5 x 2.5 cm mass in left lung upper lobe wit h increased activity, stable from 02/26/21. No pleural effusion. The heart size is normal. There are c oronary artery calcifications. No pericardial effusion. There is mild mediastinal lymphadenopathy wit hout increased activity. There is a small sliding hiatal hernia. There is increased activity in bone marrow without abnormal CT correlate, likely bone marrow stimulation. Abdomen/pelvis/proximal thighs: The liver, gallbladder, spleen, pancreas, adrenal glands, and kidneys are normal. There are no dilated loops of small bowel bowel. The appendix is normal. There are no pa thologically enlarged lymph nodes. There is no free intraperitoneal fluid. There is increased activit y in bone marrow without abnormal CT correlate, likely bone marrow stimulation. IMPRESSION: 1. Stable nodule and airspace and groundglass opacities in right lung upper lobe, consistent with ray [place] bronchogenic carcinoma and changes of radiation therapy. 2. Greater than 20 pulmonary nodules measuring up to 12 mm with increased activity, stable from 022 and worsened from 02/26/2021, consistent with metastatic disease. 3. Left upper lobe mass with increased activity, stable from 02/26/21. This finding may be granulomato us disease or malignancy. Reviewed, dictated and finalized at location A. IMPRESSION: 1. Stable nodule and airspace and groundglass opacities in right lung upper lob e, consistent with primary bronchogenic carcinoma and changes of radiation ther apy. 2. Greater than 20 pulmonary nodules measuring up to 12 mm with increased activ ity, stable from 06/26/2021 and worsened from 02/26/2021, consistent with metastat ic disease. 3. Left upper lobe mass with increased activity, stable from 02/26/21. This find ing may be granulomatous disease or malignancy.
[2021-08-07 10:10] LABS: Glucose Point of Care 82 mg/dl (65-105)
== END 2021-08-07 09:22 | disposition home or self-care (01) ==
LOC: ANHIMG 09:23
PROVIDERS: PCP Family Medicine; Visit Provider Internal Medicine Hematology & Oncology
DX: Z03.89 Encounter for observation for other suspected diseases and conditions ruled out (principal); C34.11 Malignant neoplasm of upper lobe, right bronchus or lung
CPT/HCPCS: 78815; A9552

== ENCOUNTER 2021-08-27 10:01 | Outpatient (CLI) | payer MEDICARE, SELFPAY ==
[2021-08-27 10:43] LABS: Basophils Absolute Auto 0.1 K/mm3 (0.0-0.1); Basophils Percent Auto 2.5 % (0.2-1.2); Eosinophils Percent Auto 0.8 % (0-4.4); Hematocrit 32.5 % (37.0-47.0); Hemoglobin 9.9 g/dL (12.0-15.0); Lymphocytes Absolute Auto 0.97 K/mm3 (0.9-3.2); Lymphocytes Percent Auto 40.4 % (18.3-44.2); Mean Corpuscular HGB Conc 30.5 g/dl (32-36); Mean Corpuscular Hemoglobin 29.4 pg (26-34); Mean Corpuscular Volume 96.4 fl (80-100); Mean Platelet Volume 8.7 fl (7.4-10.4); Monocytes Absolute Auto 0.5 K/mm3 (0.1-0.6); Monocytes Percent Auto 20.8 % (2.6-8.5); Neutrophils Absolute Auto 0.9 K/mm3 (1.3-6.7); Neutrophils Percent Auto 35.5 % (45.5-73.1); Platelet Count Result 249 k/mm3 (150-375); Red Blood Count 3.37 M/mm3 (4.2-5.4); Red Cell Distribution Width 17.3 % (11.5-14.5); White Blood Count 2.4 K/mm3 (4.5-10.0)
[2021-08-27 10:54] LABS: Prothrombin Time 12.5 Seconds (11.1-14.7)
[2021-08-27 10:55] LABS: Partial Thromboplastin Time 26.9 SECONDS (22.3-36.8)
[2021-08-27 10:56] LABS: Anion Gap 6 mmol/L (8-16); Blood Urea Nitrogen 11 mg/dL (7-17); Carbon Dioxide 26 mmol/L (22-30); Chloride 107 mmol/L (98-107); Estimated Glomerular Filt Rate 36; Glucose 90 mg/dL (65-110); Potassium 4.2 mmol/L (3.4-5.0); Sodium 139 mmol/L (137-145)
== END 2021-08-27 10:02 | disposition home or self-care (01) ==
LOC: ANHSURGERY 10:09
PROVIDERS: Anesthesiology; PCP Family Medicine; Visit Provider Surgery
DX: Z01.818 Encounter for other preprocedural examination (principal); N18.9 Chronic kidney disease, unspecified; C34.91 Malignant neoplasm of unspecified part of right bronchus or lung
CPT/HCPCS: 36415; 80048; 85025; 85610; 85730

== ENCOUNTER 2021-08-31 01:01 | Day surgery (SDC) | payer MEDICARE, SELFPAY ==
[2021-08-22 09:53] VITALS: BMI 27.2
--- NOTE | 2021-08-22 10:08 | PC.NURSE ---
Report to the Outpatient Waiting Room, entrance under the green pavilion located off [facility], at time _0700_ on date _09/01/11_. OR Time: _0900_. - You and your visitor will be asked a series of questions to screen for COVID 19 for your protection. - A mask is required within the hospital. One visitor will be allowed to accompany the patient into the hospital. Patients visitor will be instructed to remain with patient at all times or leave the building. We will allow the visitor to come back to the postoperative area when patient is ready. Preoperative COVID Testing Requirements: NONE Patients may have clear liquids (water, carbonated beverages, clear teas, apple juice) until 3 hours prior to surgery (0600 AM) with a maximum of 20 ounces. - No food from midnight until time of surgery Take the following medications with a SIP of water the morning of surgery: _BREO ELLIPTA, METOPROLOL__ Medications to discontinue __CILOSTAZOL PER DR NORTON'S INSTRUCTIONS, ALL VITAMINS 3 DAYS PRIOR TO SURGERY PER ANESTHESIA - Date to take last dose_08/27/21__ Please no make-up, nail chinese, hairspray, perfume, deodorant, or body powder the day of surgery. No jewelry (including any body piercings) or valuables the day of surgery, leave them at home. Please take a shower or bath the night before, or the morning of, surgery with an antibacterial soap. Wear comfortable, loose fitting clothing. - Jewelry must be removed prior to entering the operating room. Rings and piercings that are not removed may be cut off. - The hospital will not accept responsibility for valuables. - Please leave all valuables, including medications, at home the day of surgery. If you are going home after surgery, a licensed race car driver must drive you home. - NO public transportation without another adult. - We recommend that an adult stay with you for 24 hours following discharge. - We also recommend that you do not drive, make important decision, drink alcoholic beverages, or take any drugs that were not prescribed by your health care provider for at least 24 hours after your discharge time. Follow any additional instructions given to you from your surgeon. Telephone instructions given to __PT_ and asked if any additional questions and then verbalized understanding. Patient advised to call surgeon office or pre surgery nurse liaisonPEE [phone] if any additional questions.
[2021-08-31] VITALS (7 sets, daily range): BP systolic 116–153; BP diastolic 47–67; PULSE 68–74; RESP 12–18; TEMP 36.5–36.6; O2SAT 95–99
--- NOTE | ~2021-08-31 | XR_ITS ---
EXAMINATION: XR chest port-a-cath/central DATE: 08/31/2021 09:51 INDICATION: Port catheter insertion TECHNIQUE: frontal view of the chest was obtained. COMPARISON: Chest CT dated 06/26/2021 FINDINGS: Interval placement of a left subclavian internal jugular central venous port catheter with distal tip in the midsuperior vena cava. There is undulation the course of the catheter where it passes between the medial left clavicle and the anterior left first rib. The degree of undulation appears greater t raya on the fluoroscopic images at the time of placement, the degree of which may be exaggerated due t o foreshortening resulting from slight rightward rotation and mild kyphosis of the patient. Patchy ai rspace opacities in the bilateral upper lung zones. No pulmonary edema, pleural effusion or pneumotho rax. The cardiomediastinal silhouette is normal. IMPRESSION: 1. Left subclavian central venous port catheter with distal tip in the mid superior vena cava and wit h extrinsic mass effect upon the catheter where it passes between the left first rib and clavicle. No evident flattening of the catheter but this could predispose towards pinch off syndrome and potentia l catheter fracture and embolization. 2. Patchy opacities throughout the bilateral upper lung zones which could represent atelectasis/scarr ing, malignancy, pneumonia or some combination thereof. Reviewed, dictated and finalized at location B. IMPRESSION: 1. Left subclavian central venous port catheter with distal tip in the mid supe rior vena cava and with extrinsic mass effect upon the catheter where it passes between the left first rib and clavicle. No evident flattening of the catheter but this could predispose towards pinch off syndrome and potential catheter fr acture and embolization. 2. Patchy opacities throughout the bilateral upper lung zones which could repre sent atelectasis/scarring, malignancy, pneumonia or some combination thereof.
--- NOTE | ~2021-08-31 | XR_ITS ---
EXAMINATION: XR fl guide central line place DATE: 08/31/2021 09:28 INDICATION: Port catheter insertion TECHNIQUE: 2 fluoroscopic images of the left upper chest were obtained during procedure performed by Dr. Galvan. Radiologist was not present for the imaging or procedure. The amount of fluoroscopy time u sed during this procedure was 0.7 minutes. COMPARISON: CT dated 06/26/2021 FINDINGS: Initial image demonstrates a wire extending along the course of the left subclavian vein into the sup erior vena cava. Subsequent image demonstrates placement of a left subclavian central venous catheter with distal tip at the mid superior vena cava. There is mild undulation the course of the catheter w here it passes between the anterior left first rib and medial left clavicle. Patchy airspace opacitie s upper lung zones. IMPRESSION: 1. Fluoroscopy utilized during placement of a left subclavian central venous catheter with distal tip in the midsuperior vena cava. 2. Opacities in the bilateral upper lung zones which could represent atelectasis/scarring, malignancy , pneumonia or some combination thereof. Reviewed, dictated and finalized at location B. IMPRESSION: 1. Fluoroscopy utilized during placement of a left subclavian central venous ca theter with distal tip in the midsuperior vena cava. 2. Opacities in the bilateral upper lung zones which could represent atelectasi s/scarring, malignancy, pneumonia or some combination thereof.
--- NOTE | 2021-08-31 07:21 | PM.IMHP ---
H&P: HPI History of Present Illness Date/Time: 08/31/21 07:21 Pt is a 75 y/o F presenting for VAD placement as access for immunotherapy. 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 Pt denies any previous central venous catheterizations. Chief Complaint: lung cancer Review of Systems Review of Systems: All systems reviewed & are unremarkable except as noted in HPI and below PMFSH Past Medical History Medical History Anemia Cancer CKD (chronic kidney disease) COPD (chronic obstructive pulmonary disease) GERD (gastroesophageal reflux disease) History of tobacco abuse Medication management Non-small cell cancer of left lung Pulmonary nodule PVD (peripheral vascular disease) arterial Doppler 2017 Rheumatoid arthritis Shortness of Breath Surgical History Surgical History H/O: hysterectomy S/P tonsillectomy childhood Family History Family History Sibling Carcinoma of colon Family history of lung cancer Father Family history of lung cancer COPD (chronic obstructive pulmonary disease) Social History Social History Social History: Smoking packs per day: 1 Smoking cigarettes per day: 20.0 Years smoked: 30 Smoking pack-years: 30.00 Smoking status: Former smoker Tobacco type: cigarettes Second hand tobacco smoke exposure: No Smoking end date: 08/10/97 Additional smoking assessment comments: started at age 15 Alcohol intake: never Substance use: never Substance use type: does not use Living arrangements: alone Gender identity (if verbalized by the patient): Female Sexual Orientation (if Verbalized by the Patient): Straight or Heterosexual Spiritual care concerns: No Meds Home Medications and Allergies Home Medications Medication Instructions Recorded Confirmed Type omeprazole 20 mg-sodium 1 cap PO DAILY 08/06/19 08/22/21 History bicarbonate 1.1 gram capsule cholecalciferol (vitamin D3) 50 mcg PO DAILY 03/29/20 08/22/21 History [Vitamin D3] multivitamin 1 tablet PO DAILY 09/06/20 08/22/21 History cyanocobalamin (vitamin B-12) 5,000 mcg SUBLINGUAL DAILY 12/13/20 08/22/21 History [Vitamin B-12] diclofenac sodium 1 % topical gel 4 g TOPICAL QID PRN 12/15/20 08/22/21 History metoprolol tartrate 50 mg tablet 50 mg PO BID #60 tablet 05/17/21 08/22/21 Rx hydroxychloroquine 200 mg tablet 400 mg PO DAILY #180 tablet 06/08/21 08/22/21 Rx leflunomide 10 mg tablet 10 mg PO DAILY #90 tablet 08/07/21 08/22/21 Rx cilostazol 100 mg QAM 08/22/21 08/22/21 History cyanocobalamin (vitamin B-12) 1,000 mcg PO DAILY 08/22/21 08/22/21 History ferrous sulfate [Iron (ferrous 325 mg PO DAILY 08/22/21 08/22/21 History sulfate)] fluticasone furoate-vilanterol 1 inh QAM 08/22/21 08/22/21 History [Breo Ellipta] folic acid 1 mg PO DAILY 08/22/21 08/22/21 History rosuvastatin 10 mg QAM 08/22/21 08/22/21 History Allergies Allergy/AdvReac Type Severity Reaction Status Date / Time bacitracin Allergy Mild lips Verified 08/22/21 09:42 [From Neosporin swelling ([id number])] neomycin Allergy Mild lips Verified 08/22/21 09:42 [From Neosporin swelling ([id number]-tbo-[id number])] polymyxin B Allergy Mild lips Verified 08/22/21 09:42 [From Neosporin swelling ([id number])] povidone-iodine Allergy Unknown Rash Verified 08/22/21 09:42 [From Betadine] soap [From Betadine] Allergy Unknown Rash Verified 08/22/21 09:42 Exam Const: General: cooperative, comfortable and no acute distress Nutritional Appearance: overweight Orientation/consciousness: patient oriented x3 Limitations: no limitations Neck: Neck: normal visual inspection, full ROM and no lymphadenopathy Chest: Chest palpation & inspection: normal inspection of the chest Resp:
--- NOTE | 2021-08-31 07:24 | WPDHPUPDATE1 ---
History and Physical Update Update Date/Time: 08/31/21 07:24 History and Physical has been reviewed, including an updated exam of the patient. There are NO changes in the patient's condition. Risks, benefits, and alternatives have been discussed and questions answered. Patient agrees to proceed with procedure.
[2021-08-31] MEDS: LACTATED RINGERS 1,000 ML 30 ML IV CONT (07:43)
[2021-08-31] MEDS: KETOROLAC 15 MG/ML VIAL (*BKC) IV PUSH (07:44)
--- NOTE | 2021-08-31 07:50 | WPDANESEPPF ---
Anes - Initial Pre Proc Eval Procedure: Operation Date: 08/31/21 09:00 Proposed Procedures p Insertion Mar Cath - Nuria Galvan MD Date/Time: 08/31/21 07:50 Surgeon: Nuria Galvan MD Pre Op Diagnosis: Non small cell ca Right Lung Patient Data Age: 75 Gender: F Height: 1.73 m Weight: 81.1 kg Last Vital Signs Temp 36.6 C 08/31/21 04:23 Pulse 73 08/31/21 04:23 Resp 18 08/31/21 04:23 BP 148/64 H 08/31/21 04:23 Pulse Ox 99 08/31/21 04:23 Allergies Allergy/AdvReac Type Severity Reaction Status Date / Time bacitracin Allergy Mild lips Verified 08/22/21 09:42 [From Neosporin swelling ([id number]-lyc-[id number])] neomycin Allergy Mild lips Verified 08/22/21 09:42 [From Neosporin swelling ([id number])] polymyxin B Allergy Mild lips Verified 08/22/21 09:42 [From Neosporin swelling (hja-ije-spiwd)] povidone-iodine Allergy Unknown Rash Verified 08/22/21 09:42 [From Betadine] soap [From Betadine] Allergy Unknown Rash Verified 08/22/21 09:42 Home Medications Medication Instructions Recorded Confirmed Type omeprazole 20 mg-sodium 1 cap PO DAILY 08/06/19 08/22/21 History bicarbonate 1.1 gram capsule cholecalciferol (vitamin D3) 50 mcg PO DAILY 03/29/20 08/22/21 History [Vitamin D3] multivitamin 1 tablet PO DAILY 09/06/20 08/22/21 History cyanocobalamin (vitamin B-12) 5,000 mcg SUBLINGUAL DAILY 12/13/20 08/22/21 History [Vitamin B-12] diclofenac sodium 1 % topical gel 4 g TOPICAL QID PRN 12/15/20 08/22/21 History metoprolol tartrate 50 mg tablet 50 mg PO BID #60 tablet 05/17/21 08/22/21 Rx hydroxychloroquine 200 mg tablet 400 mg PO DAILY #180 tablet 06/08/21 08/22/21 Rx leflunomide 10 mg tablet 10 mg PO DAILY #90 tablet 08/07/21 08/22/21 Rx cilostazol 100 mg QAM 08/22/21 08/22/21 History cyanocobalamin (vitamin B-12) 1,000 mcg PO DAILY 08/22/21 08/22/21 History ferrous sulfate [Iron (ferrous 325 mg PO DAILY 08/22/21 08/22/21 History sulfate)] fluticasone furoate-vilanterol 1 inh QAM 08/22/21 08/22/21 History [Breo Ellipta] folic acid 1 mg PO DAILY 08/22/21 08/22/21 History rosuvastatin 10 mg QAM 08/22/21 08/22/21 History Patient hx anesthesia problems: none Family hx anesthesia problems: none Results Review: All pre-operative results and documents have been reviewed as part of the pre-operative evaluation. [facility] Past Medical History Medical History Anemia Cancer CKD (chronic kidney disease) COPD (chronic obstructive pulmonary disease) GERD (gastroesophageal reflux disease) History of tobacco abuse Medication management Non-small cell cancer of left lung Pulmonary nodule PVD (peripheral vascular disease) arterial Doppler 2017 Rheumatoid arthritis Shortness of Breath Surgical History Surgical History H/O: hysterectomy S/P tonsillectomy childhood Family History Family History Sibling Carcinoma of colon Family history of lung cancer Father Family history of lung cancer COPD (chronic obstructive pulmonary disease) Social History Social History Social History: Smoking packs per day: 1 Smoking cigarettes per day: 20.0 Years smoked: 30 Smoking pack-years: 30.00 Smoking status: Former smoker Tobacco type: cigarettes Second hand tobacco smoke exposure: No Smoking end date: 08/10/97 Additional smoking assessment comments: started at age 15 Alcohol intake: never Substance use: never Substance use type: does not use Living arrangements: alone Gender identity (if verbalized by the patient): Female Sexual Orientation (if Verbalized by the Patient): Straight or Heterosexual Spiritual care concerns: No Anes - Eval Final PreProcedure Day of Procedure 08/31/21 07:50 Patient we
--- NOTE | 2021-08-31 07:53 | WPDANESEPPF ---
Anes - Initial Pre Proc Eval Procedure: Operation Date: 08/31/21 09:00 Proposed Procedures p Insertion Mar Cath - Nuria Galvan MD Date/Time: 08/31/21 07:53 Surgeon: Nuria Galvan MD Pre Op Diagnosis: Non small cell ca Right Lung Patient Data Age: 75 Gender: F Height: 1.73 m Weight: 81.1 kg Last Vital Signs Temp 36.6 C 08/31/21 07:23 Pulse 73 08/31/21 07:23 Resp 18 08/31/21 07:23 BP 148/64 H 08/31/21 07:23 Pulse Ox 99 08/31/21 07:23 Allergies Allergy/AdvReac Type Severity Reaction Status Date / Time bacitracin Allergy Mild lips Verified 08/22/21 09:42 [From Neosporin swelling ([id number]-[id number])] neomycin Allergy Mild lips Verified 08/22/21 09:42 [From Neosporin swelling (svi-unf-mgafh)] polymyxin B Allergy Mild lips Verified 08/22/21 09:42 [From Neosporin swelling (fyr-[id number])] povidone-iodine Allergy Unknown Rash Verified 08/22/21 09:42 [From Betadine] soap [From Betadine] Allergy Unknown Rash Verified 08/22/21 09:42 Home Medications Medication Instructions Recorded Confirmed Type omeprazole 20 mg-sodium 1 cap PO DAILY 08/06/19 08/22/21 History bicarbonate 1.1 gram capsule cholecalciferol (vitamin D3) 50 mcg PO DAILY 03/29/20 08/22/21 History [Vitamin D3] multivitamin 1 tablet PO DAILY 09/06/20 08/22/21 History cyanocobalamin (vitamin B-12) 5,000 mcg SUBLINGUAL DAILY 12/13/20 08/22/21 History [Vitamin B-12] diclofenac sodium 1 % topical gel 4 g TOPICAL QID PRN 12/15/20 08/22/21 History metoprolol tartrate 50 mg tablet 50 mg PO BID #60 tablet 05/17/21 08/22/21 Rx hydroxychloroquine 200 mg tablet 400 mg PO DAILY #180 tablet 06/08/21 08/22/21 Rx leflunomide 10 mg tablet 10 mg PO DAILY #90 tablet 08/07/21 08/22/21 Rx cilostazol 100 mg QAM 08/22/21 08/22/21 History cyanocobalamin (vitamin B-12) 1,000 mcg PO DAILY 08/22/21 08/22/21 History ferrous sulfate [Iron (ferrous 325 mg PO DAILY 08/22/21 08/22/21 History sulfate)] fluticasone furoate-vilanterol 1 inh QAM 08/22/21 08/22/21 History [Breo Ellipta] folic acid 1 mg PO DAILY 08/22/21 08/22/21 History rosuvastatin 10 mg QAM 08/22/21 08/22/21 History Patient hx anesthesia problems: none Family hx anesthesia problems: none Results Review: All pre-operative results and documents have been reviewed as part of the pre-operative evaluation. [facility] Past Medical History Medical History Anemia Cancer CKD (chronic kidney disease) COPD (chronic obstructive pulmonary disease) GERD (gastroesophageal reflux disease) History of tobacco abuse Medication management Non-small cell cancer of left lung Pulmonary nodule PVD (peripheral vascular disease) arterial Doppler 2017 Rheumatoid arthritis Shortness of Breath Surgical History Surgical History H/O: hysterectomy S/P tonsillectomy childhood Family History Family History Sibling Carcinoma of colon Family history of lung cancer Father Family history of lung cancer COPD (chronic obstructive pulmonary disease) Social History Social History Social History: Smoking packs per day: 1 Smoking cigarettes per day: 20.0 Years smoked: 30 Smoking pack-years: 30.00 Smoking status: Former smoker Tobacco type: cigarettes Second hand tobacco smoke exposure: No Smoking end date: 08/10/97 Additional smoking assessment comments: started at age 15 Alcohol intake: never Substance use: never Substance use type: does not use Living arrangements: alone Gender identity (if verbalized by the patient): Female Sexual Orientation (if Verbalized by the Patient): Straight or Heterosexual Spiritual care concerns: No Anes - Eval Final PreProcedure Day of Procedure 08/31/21 07:53 Patient we
[2021-08-31] MEDS: ceFAZolin 2 GM/D5W 50 ML 2 GM/50 ML BAG IVPB (08:38)
[2021-08-31] MEDS: HEPARIN SODIUM 5,000 UNITS/ML VIAL 5000 UNITS IRRIGATION (09:12)
[2021-08-31] MEDS: HEPARIN SODIUM, PORCINE 10,000 UNITS/10 ML VIAL 3000 UNITS IV PUSH (09:14)
--- NOTE | 2021-08-31 09:33 | P.OP_ITS ---
Procedure Note - Detailed Date of Procedure 08/31/21 Pre-op Diagnosis Non small cell ca Right Lung Post-op Diagnosis Same Procedure Performed Attempted replacement of left internal jugular venous access device, change to placement of left subclavian venous access device under ultrasound and fluoroscopic guidance Surgeon Nuria Galvan MD Anesthesia General Indications 75 y/o F with R lung cancer needing access for immunotherapy Findings LIJ spasm, switch to LSCV Description of Procedure Patient was brought into the operating room and placed in the supine position. After adequate induction of mac anesthesia, the patient was prepped and draped in normal sterile fashion. Time-out was then done to verify the patient's identity, as well as the procedure being performed. Using the U/S, I was able to locate the left internal jugular vein. I was able to gain access into the vein with an 18 gauge needle. Placement was confirmed via fluoroscopic guidance. Upon passing the dilating sheath, it was noted that we lost access to the vein. Upon reimaging with ultrasound, it was noted that the vein was then spasm. Given this, I decided to use the left subclavian vein for access. I began by making a small incision in the left chest, I then gained access into the left subclavian vein with an 18 gauge needle. I then placed the guidewire into the vein and confirmed placement via fluoroscopic guidance. I then locally anesthetized the area in the left chest. I then enlarged the incision around the guidewire including making a subcutaneous pocket inferiorly to allow placement of the port itself. I then placed a dilating sheath over the guidewire into the left subclavian vein via sterile Seldinger technique. This was once again done and confirmed via fluoroscopic guidance. I then removed the dilator and the guidewire, now just leaving the sheath in the vein. I then fed the previously flushed catheter into the left subclavian vein under fluoroscopic guidance. At approximately 18 cm, the catheter was noted to be near the atrial caval junction. I then peeled away the sheath, now just leaving the catheter in the vein. I then was able to easily draw and flush from the catheter. The c atheter was cut to fit and attached to the port itself. The port was placed into the previously made subcutaneous pocket and sutured in with 0 Ethibond suture. Final fluoroscopic view showed the termination of the catheter at the atrial caval junction with a nice smooth curvature back to the port itself. I was able to gain access to the port with a Shelton needle and was able to easily draw and flush from the port. I then flushed 4 cc of a final heparin flush into the port. The incision was closed with 3 0 Vicryl suture in the subcutaneous tissue and the skin was closed with 4 O Monocryl subcuticular suture. Dermabond was then placed on wound. The patient tolerated the procedure well and will be sent to the recovery room in stable condition. Implants L SCV VAD Estimated Blood Loss 40 Drains No Packing No Pathology None sent Complications No immediate complications Condition Stable Disposition PACU
== END 2021-08-31 11:15 | disposition home or self-care (01) ==
PROVIDERS: PCP Family Medicine; Visit Provider Surgery
PROC: (CPT 36561; principal; 2021-08-31 09:00)
DX: C34.91 Malignant neoplasm of unspecified part of right bronchus or lung (principal); N18.9 Chronic kidney disease, unspecified; D64.9 Anemia, unspecified; J44.9 Chronic obstructive pulmonary disease, unspecified; K21.9 Gastro-esophageal reflux disease without esophagitis; I73.9 Peripheral vascular disease, unspecified; M06.9 Rheumatoid arthritis, unspecified; Z79.51 Long term (current) use of inhaled steroids; Z87.891 Personal history of nicotine dependence
CPT/HCPCS: 36561; 77001; C1788; J0690; J1100; J1644; J1885; J2001; J2250; J2370; J2405; J2704; J3010; J7030; J7120

== ENCOUNTER 2021-11-09 07:36 | Outpatient (CLI) | payer MEDICARE, SELFPAY ==
[2021-11-08 13:44] VITALS: BMI 26.3
--- NOTE | ~2021-11-09 | BM_ITS ---
EXAMINATION: CCL bone marrow asp w bx diag ORDER COMPLETED DATE: 11/09/2021 10:08 INDICATION: Lung cancer presenting with leukopenia TECHNIQUE: A time-out was performed to verify the patient's name, date of , and procedure to b e performed. The procedure including the risks, benefits, and alternatives was discussed with the pat ient. Risks discussed included bleeding and infection. The patient understood the risks and agreed to proceed. The skin overlying the right posterior iliac spine was prepped and draped in usual sterile fashion. Anesthetic was administered with 1% lidocaine subcutaneously. Systemic analgesia was provide d with 50 mcg fentanyl IV. An 11 gauge needle was inserted into the ilium with fluoroscopic guidance. Bone marrow was aspirated. An 8 gauge needle was then inserted into the ilium with fluoroscopic guid ance. A core bone marrow biopsy was obtained. There were no immediate complications. Fluoroscopy expo sure time was 0.2 minutes. The total number of images was 143. FINDINGS: Real-time fluoroscopy demonstrates a marker overlying the right posterior iliac spine. IMPRESSION: 1. Successful fluoro-guided bone marrow aspiration. 2. Successful fluoro-guided bone marrow core biopsy. Reviewed, dictated and finalized at location A.
[2021-11-09 08:05] VITALS: BP 149/48; PULSE 87; RESP 18; TEMP 36.9; O2SAT 98; BMI 26.2
[2021-11-09 08:22] LABS: Hematocrit 28.1 % (37.0-47.0); Hemoglobin 9.2 g/dL (12.0-15.0); Mean Corpuscular HGB Conc 32.7 g/dl (32-36); Mean Corpuscular Hemoglobin 31.9 pg (26-34); Mean Corpuscular Volume 97.6 fl (80-100); Platelet Count Result 216 k/mm3 (150-375); Red Blood Count 2.88 M/mm3 (4.2-5.4); Red Cell Distribution Width 15.9 % (11.5-14.5)
[2021-11-09 08:38] LABS: Prothrombin Time 12.4 Seconds (11.1-14.7)
[2021-11-09 08:41] LABS: White Blood Count 1.8 K/mm3 (4.5-10.0)
--- NOTE | 2021-11-09 09:01 | SUR.PREOP ---
critical lab called wbc 1.83. Dr Barron notified
--- NOTE | 2021-11-09 09:06 | WPDMODSED ---
Moderate Sedation Note-Pt Data Patient Data Diagnosis: Lung cancer Present Complaint: leukopenia Procedure to be performed/Plan: bone marrow biopsy Allergies Allergy/AdvReac Type Severity Reaction Status Date / Time bacitracin Allergy Mild lips Verified 11/09/21 08:02 [From Neosporin swelling ([id number])] neomycin Allergy Mild lips Verified 11/09/21 08:02 [From Neosporin swelling (yik-rin-cbffi)] polymyxin B Allergy Mild lips Verified 11/09/21 08:02 [From Neosporin swelling (cll-dpd-[id number])] povidone-iodine Allergy Unknown Rash Verified 11/09/21 08:02 [From Betadine] soap [From Betadine] Allergy Unknown Rash Verified 11/09/21 08:02 Home Medications Medication Instructions Recorded Confirmed Type cholecalciferol (vitamin D3) 50 50 mcg PO DAILY 03/29/20 11/08/21 History mcg (2,000 unit) capsule (Vitamin D3) multivitamin 1 tablet PO DAILY 09/06/20 11/08/21 History diclofenac sodium 1 % topical gel 4 g topical QID PRN Pain 12/15/20 11/08/21 History cilostazol 100 mg tablet 100 mg QAM 08/22/21 11/08/21 History cyanocobalamin (vitamin B-12) 1,000 mcg PO DAILY 08/22/21 11/08/21 History 1,000 mcg capsule ferrous sulfate 325 mg (65 mg 325 mg PO DAILY 08/22/21 11/08/21 History iron) tablet (Iron (ferrous sulfate)) fluticasone furoate 100 1 inh QAM 08/22/21 11/08/21 History mcg-vilanterol 25 mcg/dose inhalation powder (Breo Ellipta) folic acid 1 mg tablet 1 mg PO DAILY #90 tabs 09/10/21 11/08/21 Rx hydroxychloroquine 200 mg tablet 400 mg PO DAILY #180 tabs 11/06/21 11/08/21 Rx (Plaquenil) Lactobacillus acidophilus 10 10,000 mmu cells PO DAILY 11/08/21 11/08/21 History billion cell capsule (Probiotic) epoetin dinora 10,000 unit/mL 10,000 unit [id number] 11/08/21 11/08/21 History injection solution (Epogen) lidocaine-prilocaine 2.5 %-2.5 % 1 applic topical ONCE 11/08/21 11/08/21 History topical cream metoprolol tartrate 50 mg tablet 50 mg PO DAILY 11/08/21 11/08/21 History omeprazole 20 mg capsule,delayed 20 mg PO DAILY 11/08/21 11/08/21 History release ondansetron HCl 8 mg tablet 8 mg PO Q8H PRN nausea/vomiting 11/08/21 11/08/21 History rosuvastatin 10 mg tablet 10 mg PO DAILY 11/08/21 11/08/21 History turmeric 400 mg capsule 500 mg PO DAILY 11/08/21 11/08/21 History Sedation/Anesthesia: No previous sedation/anesthesia problems (including family history). [facility] Past Medical History Medical History Anemia Cancer CKD (chronic kidney disease) COPD (chronic obstructive pulmonary disease) GERD (gastroesophageal reflux disease) History of tobacco abuse Leukopenia due to antineoplastic chemotherapy Lung cancer Medication management Non-small cell cancer of left lung Pulmonary nodule PVD (peripheral vascular disease) arterial Doppler 2017 Rheumatoid arthritis Shortness of Breath Surgical History Surgical History H/O: hysterectomy S/P tonsillectomy childhood Family History Family History Sibling Carcinoma of colon Family history of lung cancer Father Family history of lung cancer COPD (chronic obstructive pulmonary disease) Social History Social History Social History: Smoking packs per day: 1 Smoking cigarettes per day: 20.0 Years smoked: 30 Smoking pack-years: 30.00 Smoking status: Former smoker Tobacco type: cigarettes Second hand tobacco smoke exposure: Yes Smoking end date: 08/10/97 Additional smoking assessment comments: quit around 1997, smoked 1ppd for 30 years Alcohol intake: never Alcohol use details: has not had alcohol for many years Substance use: never Substance use type: does not use Living arrangements: alone Gender identity (if verbalized by the patient): Female Sexual
[2021-11-09 09:09] LABS: Band Neutrophils Percent 2 % (0-6); Lymphocytes Absolute Manual 0.88 K/mm3 (1.1-4.5); Metamyelocytes Percent 4 %; Monocytes Absolute Manual 0.32 K/mm3 (0.1-0.90); Monocytes Percent Manual 18 % (3-9); Myelocytes Percent 2 %; Neutrophils Absolute Manual 0.48 K/mm3 (1.7-7.2); Neutrophils Percent Manual 25 % (46-73); Total Cells Counted 100
[2021-11-09 09:10] LABS: Platelet Estimate Adequate (Adequate)
[2021-11-09 09:11] LABS: Burr Cells 1+ (NORMAL); Hypochromasia 1+ (NORMAL); Poikilocytosis 1+ (NORMAL)
[2021-11-09 10:09] VITALS: BP 158/49; PULSE 92; RESP 16; O2SAT 97
[2021-11-09 10:15] VITALS: BP 137/45; PULSE 88; RESP 16; O2SAT 97
[2021-11-09 10:30] VITALS: BP 142/51; PULSE 83; RESP 16; O2SAT 97
--- NOTE | 2021-11-09 10:44 | SUR.PREOP ---
0905 Dr. Barron at bedside talking with patient and patient's niece.
== END 2021-11-09 11:25 | disposition home or self-care (01) ==
PROVIDERS: PCP Family Medicine; Referring Provider Internal Medicine Hematology & Oncology; Visit Provider Radiology Diagnostic Radiology
DX: C34.11 Malignant neoplasm of upper lobe, right bronchus or lung (principal)
CPT/HCPCS: 36415; 38222; 85025; 85610; 88184; 88185; 88305; 88311; 88312; 88313; 88341; 88342; J1642; J2250; J3010; J7040

== ENCOUNTER 2021-11-23 14:06 | Outpatient (CLI) | payer MEDICARE, SELFPAY ==
--- NOTE | ~2021-11-23 | CT_ITS ---
EXAMINATION: CT diagnostic chest wo con DATE: 11/23/2021 14:28 INDICATION: Malignant neoplasm of right upper lobe TECHNIQUE: Computed tomography (CT) of the chest was performed without intravenous contrast. Automate d exposure control and iterative reconstruction technique were employed. Exam dose: 305.76 mGy-cm to rocío exam DLP. COMPARISON: 08/09/2021 PET/CT scan CT chest FINDINGS: Left subclavian Port-A-Cath catheter tip in left brachiocephalic vein just proximal to the superior vena cava. There is interval increased soft tissue thickness/size of the large irregular mass density in the lat eral right apex which may indicate mild progression. Stable large irregular mass in the anterior left apical area since 06/26/2021. Stable irregular mass density in the superior aspect of the right lower lobe superior segment. 1 superior segment right upper lobe mass has diminished in size from 7.1 mm on to 225.6 mm cur rently. There is interval decreased size of a small upper middle lobe mass approximately 3.1 to 1.7 m m. There is interval new or increased cavitation of multiple nodules since , which may be secon kayley to treatment. There is interval decreased size of a posteromedial left upper lobe lesion (series 4 image 23) there is considerably diminished size of a prior 4 x 12 mm opacity in the medial lower left apical area. There is a new irregular approximately 6 mm opacity in the posterior segment of the left upper lobe ( series 4 image 40). There is interval decreased size of at least 2 left lower lobe small opacities th ere is a new posterior left lower lobe approximately 3 mm opacity (image 75). Emphysematous changes of the lungs. No pulmonary consolidation. No pleural effusion. Normal heart size. No pericardial effusion. No significant enlarged hilar or mediastinal lymph nodes are noted. Normal morphology of the adrenal glands. Interval mild anterior wedge compression fracture of T3 since June 26, 2021. Prominent degenerative disc disease at C6-7. Thoracic kyphosis. Osteopenia. IMPRESSION: Interval mildly increased size of right apical mass lesion since June 26, 2021 There are multiple of the previously reported approximately 20 metastatic lesions which have shown in terval improvement or new or increased cavitation suggesting response to treatment. However, there are couple of new opacities, one in the left upper lobe and the other in the left lowe r lobe New mild T3 compression fracture Reviewed, dictated and finalized at [facility]. Reviewed, dictated and finalized at location A. IMPRESSION: Interval mildly increased size of right apical mass lesion since F ebruary 2021 There are multiple of the previously reported approximately 20 metastatic lesio ns which have shown interval improvement or new or increased cavitation suggest ing response to treatment. However, there are couple of new opacities, one in the left upper lobe and the other in the left lower lobe New mild T3 compression fracture
== END 2021-11-23 14:07 | disposition home or self-care (01) ==
PROVIDERS: PCP Family Medicine; Visit Provider Internal Medicine Hematology & Oncology
DX: C34.11 Malignant neoplasm of upper lobe, right bronchus or lung (principal)
CPT/HCPCS: 36415; 71250; 80053; 82607; 82728; 82746; 83540; 83550; 85025

== ENCOUNTER 2022-01-10 16:44 | Outpatient (CLI) | payer MEDICARE, SELFPAY ==
--- NOTE | ~2022-01-10 | US_ITS ---
EXAMINATION: US venous doppler UE DATE: 01/10/2022 17:26 INDICATION: Left upper limb swelling. TECHNIQUE: Grayscale ultrasound images without and with compression and Doppler ultrasound images of the left upper extremity veins were obtained. COMPARISON: None. FINDINGS: The visualized portions of the left internal jugular vein, brachial veins, cephalic vein, radial vein , and ulnar vein are patent. There is thrombus in left subclavian and axillary veins and basilic vein . IMPRESSION: 1. Deep vein thrombosis involving left subclavian and axillary veins. 2. Superficial vein thrombosis involving left basilic vein. Reviewed, dictated and finalized at location A.
== END 2022-01-10 16:45 | disposition home or self-care (01) ==
PROVIDERS: PCP Family Medicine; Visit Provider Student in an Organized Health Care Education/Training Program
DX: C34.92 Malignant neoplasm of unspecified part of left bronchus or lung (principal); R22.32 Localized swelling, mass and lump, left upper limb; I82.B12 Acute embolism and thrombosis of left subclavian vein; I82.612 Acute embolism and thrombosis of superficial veins of left upper extremity
CPT/HCPCS: 36415; 80047; 80053; 84443; 85025; 93971; 96372; Q5106

== ENCOUNTER 2022-01-18 13:38 | Outpatient (CLI) | payer MEDICARE, SELFPAY ==
--- NOTE | ~2022-01-18 | XR_ITS ---
EXAMINATION: XR chest 2V DATE: 01/18/2022 14:00 INDICATION: Cough. Lung cancer. TECHNIQUE: Frontal and lateral views of the chest were obtained. COMPARISON: Chest single view 08/31/2021, chest CT 11/23/2021, 06/26/2021 FINDINGS: There are airspace opacities in the upper lobes. No pleural effusion or pneumothorax. The h eart size is normal. There is a left chest port with tip in left brachiocephalic vein. IMPRESSION: 1. Stable airspace opacities in the upper lobes, likely a combination of granulomatous disease and ra diation pneumonitis. Reviewed, dictated and finalized at location A. IMPRESSION: 1. Stable airspace opacities in the upper lobes, likely a combination of granul omatous disease and radiation pneumonitis.
== END 2022-01-18 13:39 | disposition home or self-care (01) ==
LOC: CHSIMG 13:41
PROVIDERS: PCP Family Medicine; Visit Provider Physician Assistant
DX: R05.9 Cough, unspecified (principal)
CPT/HCPCS: 71046

== ENCOUNTER 2022-01-23 07:59 | Outpatient (RCR) | payer MEDICARE, SELFPAY ==
[2022-01-23] VITALS (7 sets, daily range): BP systolic 136–158; BP diastolic 51–61; PULSE 73–82; RESP 20–22; TEMP 36.1–36.6; O2SAT 92–99
[2022-01-23 08:36] LABS: Hemoglobin 7.9 g/dL (12.0-15.0)
[2022-01-23] MEDS: ACETAMINOPHEN 325 MG TABLET 650 MG PO (09:51)
[2022-01-23] MEDS: SODIUM CHLORIDE 0.9% IV 250 ML 30 ML IV CONT (09:52)
[2022-01-23] MEDS: diphenhydrAMINE HCl CAP 25 MG CAPSULE PO (09:52)
== END 2022-04-23 23:59 | disposition home or self-care (01) ==
LOC: ANHCPCTRAN 07:59
PROVIDERS: PCP Family Medicine; Visit Provider Internal Medicine Hematology & Oncology
DX: D64.9 Anemia, unspecified (principal); D63.1 Anemia in chronic kidney disease; N18.4 Chronic kidney disease, stage 4 (severe)
CPT/HCPCS: 36415; 36430; 85014; 85018; 86850; 86900; 86901; 86920; A9270; J7050; P9016

== ENCOUNTER 2022-02-01 08:09 | Outpatient (CLI) | payer MEDICARE, SELFPAY ==
--- NOTE | ~2022-02-01 | XR_ITS ---
EXAMINATION: XR fl port a cath w contrast DATE: 02/01/2022 09:14 INDICATION: Malignant neoplasm of upper lobe of right lung. Port dysfunction. TECHNIQUE: I performed fluoroscopy of the chest while the port was injected with contrast. Fluoroscop y exposure time was 0.4 minutes. The number of images was 408. COMPARISON: Chest CT 11/23/2021 FINDINGS: There is a left subclavian port with tip in left brachiocephalic vein. The catheter tip is directed to the right and slightly cranial and abuts the wall of the vessel. During injection, contra st collects around the catheter tip suggesting a fibrin sheath. IMPRESSION: 1. Port tip in left brachiocephalic vein directed into the wall of the vessel. Fibrin sheath around t he catheter tip. Reviewed, dictated and finalized at location A. IMPRESSION: 1. Port tip in left brachiocephalic vein directed into the wall of the vessel. Fibrin sheath around the catheter tip.
== END 2022-02-01 08:10 | disposition home or self-care (01) ==
LOC: ANHIMG 08:12
PROVIDERS: PCP Family Medicine; Visit Provider Internal Medicine Hematology & Oncology
DX: C34.11 Malignant neoplasm of upper lobe, right bronchus or lung (principal)
CPT/HCPCS: 36598

== ENCOUNTER 2022-02-21 10:38 | Inpatient (IN) | payer MEDICARE, SELFPAY ==
[2022-02-21] VITALS (39 sets, daily range): BP systolic 109–151; BP diastolic 39–94; PULSE 100–189; RESP 13–34; TEMP 36.3–37; O2SAT 95–100; BMI 26.2
--- NOTE | 2022-02-21 | ECHO_ITS ---
Patient Info Name: Skylar Aguilera Age: 76 years : 1945 Gender: Female Ht: 68 in Wt: 167 lbs BSA: 1.92 m2 HR: 110 bpm BP: 122 / 94 mmHg Heart Rhythm: Sinus Rhythm, Tachycardia Technical Quality: Fair Exam Date: 02/21/2022 3:39 PM Exam Location: [facility] Room: ER 5 Patient Status: Outpatient Admit Date: 02/21/2022 Staff Ordering Physician: Betsy Tomas NP [employer] Assistant: Maryam Hassan RCS Attending Provider: Waleska Julien DO Referring Physician: Genoveva DELA CRUZ; Exam Type: CA echo doppler color flow Study Info Indications - CHEST PAIN X 4DAYS ELEVATED TROPONINS /BNP EDEMA HX/O LUNG CANCER Complete two-dimensional, color flow and Doppler transthoracic echocardiogram is performed. Summary 1. Complete two-dimensional, color flow and Doppler transthoracic echocardiogram is performed. 2. Left ventricular systolic function is hyperdynamic, estimated at >70%. 3. No significant valvular disease. 4. PASP estimate of 44mmHg. Left Ventricle Left ventricular chamber dimension is normal. Left ventricular systolic function is hyperdynamic, estimated at >70%. There is no increased left ventricular wall thickness. Right Ventricle Right ventricular chamber dimension is normal. Right ventricular systolic function is normal. Left Atria Left atrial chamber dimension is normal. Right Atria Right atrial chamber dimension is mildly enlarged. Atrial Septum Intact interatrial septum visualized by color flow imaging. Aortic Valve The aortic valve is not well visualized. There is no aortic valve stenosis. There is no aortic valve regurgitation. Pulmonic Valve The pulmonic valve is not well visualized. Mitral Valve The mitral valve has normal leaflets. There is no mitral valve stenosis. There is mild mitral valve regurgitation. Tricuspid Valve The tricuspid valve leaflets are normal. There is no significant tricuspid valve stenosis. There is mild tricuspid valve regurgitation. Pericardium/Pleural There is trivial pericardial effusion. Inferior Vena Cava Normal inferior vena cava with >50% collapse upon inspiration consistent with Empty right atrial pressure, 3 mmHg. Left Ventricular Outflow Tract Name Value Normal LVOT 2D LVOT Diameter 2.0 cm LVOT Doppler LVOT Peak Gradient 7 mmHg LVOT Mean Gradient 5 mmHg LVOT VTI 25 cm LVOT VTI/AV VTI Ratio 1.1 LVOT Stroke Volume 75 ml LVOT CO 19.1 l/min LVOT CI 10.0 l/min/m2 Pulmonic Valve Name Value Normal PV Doppler PV Peak Gradient 7 mmHg Mitral Valve N
--- NOTE | ~2022-02-21 | XR_ITS ---
EXAMINATION: XR chest 1V portable INDICATION: Chest pain, SVT TECHNIQUE: Portable AP chest at 1117 hours COMPARISON: 01/18/2022 FINDINGS: There are unchanged airspace opacities of the upper lobes. A left subclavian port ends with its tip in the brachiocephalic vein. No pleural effusion or pneumothorax. The heart size is normal. IMPRESSION: 1. No acute cardiopulmonary abnormality. Reviewed, dictated and finalized at location A.
--- NOTE | ~2022-02-21 | CT_ITS ---
EXAMINATION: CT diagnostic chest wo con DATE: 02/22/2022 08:55 INDICATION: Lung cancer TECHNIQUE: Computed tomography (CT) of the chest was performed without intravenous contrast. The dose -length product (DLP) was 348.53 mGy-cm. Automated exposure control and iterative reconstruction tech [employer] were employed. COMPARISON: 11/23/2021 FINDINGS: There are scattered areas of stable airspace opacity in septal thickening in the lung apice s as well as in the superior segment of the right lower lobe. Nodules measuring 10 mm and 7 mm in the superior segment of the right lower lobe are relatively stable in size but now demonstrating more so lid appearance. A 9 mm nodule in the left upper lobe demonstrates slight increase in size and a more solid appearance compared to the prior examination (image 25). A 7 mm nodule of the left lower lobe a lso demonstrates a more solid appearance compared to the prior examination. There are small pleural e ffusions. No pneumothorax is identified. There is dependent atelectasis in the lungs. There is medias tinal lymphadenopathy with slight worsening. A left subclavian Port-A-Cath ends with its tip in the b rachiocephalic vein. The heart size is normal. A T3 compression fracture is not significantly changed . IMPRESSION: 1. Areas of radiation fibrosis and treated malignancy in the upper lobes with increasing solid appear ance of multiple previously cavitary metastatic nodules. 2. Small pleural effusions. 3. Mediastinal lymphadenopathy with slight worsening. Reviewed, dictated and finalized at location A. IMPRESSION: 1. Areas of radiation fibrosis and treated malignancy in the upper lobes with i ncreasing solid appearance of multiple previously cavitary metastatic nodules. 2. Small pleural effusions. 3. Mediastinal lymphadenopathy with slight worsening.
--- NOTE | ~2022-02-21 | US_ITS ---
EXAMINATION: US venous doppler UE RT DATE: 02/27/2022 10:11 INDICATION: Right arm edema TECHNIQUE: Peterson scale images with and without compression and Doppler images of the right upper extre mity veins were obtained. COMPARISON: None. FINDINGS: The right internal jugular vein, subclavian vein, axillary vein, brachial veins, basilic vein, cephal ic vein, radial vein, and ulnar vein are patent. IMPRESSION: 1. Patent right upper extremity veins. No evidence of deep venous thrombosis. Reviewed, dictated and finalized at location B.
--- NOTE | ~2022-02-21 | XR_ITS ---
EXAMINATION: XR chest 1V portable DATE: 02/27/2022 06:33 INDICATION: Shortness of breath TECHNIQUE: frontal view of the chest was obtained. COMPARISON: Chest radiograph dated 02/21/[address] dated 02/22/22 FINDINGS: No significant change in opacities in bilateral upper lung zones which based on clinical history and prior CT likely represent a combination of atelectasis/scarring and treated metastatic lung cancer. I ncreasing opacities in the left mid to lower lung zone and at the right lower lung zones consistent w ith enlarging small right and [id number] left pleural effusions with associated atelectasis or pneumonia. The cardiomediastinal silhouette is normal. Left subclavian central venous port catheter with distal tip at the junction of the left brachiocephalic vein and superior vena cava. IMPRESSION: 1. Increasing small right and [id number] left pleural effusions with associated atelectasis or pneumonia. 2. Relatively stable appearance of atelectasis/scarring and treated metastatic lung cancer in the franchesca ateral upper lung zones. Reviewed, dictated and finalized at location A. IMPRESSION: 1. Increasing small right and [id number] left pleural effusions with ass ociated atelectasis or pneumonia. 2. Relatively stable appearance of atelectasis/scarring and treated metastatic lung cancer in the bilateral upper lung zones.
--- NOTE | ~2022-02-21 | US_ITS ---
EXAMINATION: US venous doppler UE DATE: 02/26/2022 13:49 INDICATION: History of DVT TECHNIQUE: Peterson scale images with and without compression and Doppler images of the left upper extrem ity veins were obtained. COMPARISON: None. FINDINGS: The left internal jugular vein, subclavian vein, axillary vein, brachial veins, basilic vein, cephali c vein, radial vein, and ulnar vein are patent. IMPRESSION: 1. Patent left upper extremity veins. No evidence of deep venous thrombosis. Reviewed, dictated and finalized at location A.
--- NOTE | ~2022-02-21 | US_ITS ---
EXAMINATION: US venous doppler [facility] DATE: 02/24/2022 08:38 INDICATION: Lower limb swelling TECHNIQUE: Grayscale ultrasound images without and with compression and Doppler ultrasound images of the bilateral lower extremity veins were obtained. COMPARISON: 10/25/2020 FINDINGS: The visualized portions of right common femoral vein, profunda (deep) femoral vein, femoral vein, pop liteal vein, posterior tibial veins, peroneal veins and greater saphenous vein outflow are patent. The visualized portions of left common femoral vein, profunda femoral vein, femoral vein, popliteal v ein, posterior tibial veins and greater saphenous vein outflow are patent. IMPRESSION: 1. No deep venous thrombosis in either lower limb. Reviewed, dictated and finalized at location A.
--- NOTE | 2022-02-21 10:44 | ECG_ITS ---
Measurements Intervals [place] Rate: 189 P: [place]: 0 QRS: 11 QRSD: 98 T: 3 QT: 228 QTc: 404 Interpretive Statements SUPRAVENTRICULAR TACHYCARDIA NONSPECIFIC ST & T-WAVE ABNORMALITY- DIFFUSE LEADS ABNORMAL ECG NO PREVIOUS ECG AVAILABLE FOR COMPARISON Electronically Signed On 02-21-2022 11:16:06 CDT by Chris Abbasi D.O.
--- NOTE | 2022-02-21 10:55 | ECG_ITS ---
Measurements Intervals [place] Rate: 111 P: 75 [place]: 137 QRS: 21 QRSD: 74 T: 37 QT: 298 QTc: 405 Interpretive Statements SINUS TACHYCARDIA POSSIBLE LEFT ATRIAL ENLARGEMENT BORDERLINE ST-T WAVE ABNORMALITY- ANTEROLAT/INF LEADS BASELINE WANDER- III, AVF, V6 ABNORMAL ECG COMPARED TO ECG 02/21/2022 10:48:45 SINUS TACHYCARDIA NOW PRESENT Electronically Signed On 02-21-2022 11:16:43 CDT by Chris Abbasi D.O.
[2022-02-21] MEDS: ADENOSINE IV SOLN 6 MG/2 ML VIAL IV PUSH (10:56)
--- NOTE | 2022-02-21 11:05 | ED.ARRPALP ---
HPI - Arrhythmia/Palpitations General Chief Complaint: Arrhythmia/Palpitations Stated Complaint: HIGH HEART RATE Time Seen by Provider: 02/21/22 10:53 Source: patient Limitations: no limitations History of Present Illness HPI narrative: Patient is 76 years old white female presents with intermittent chest pain over the last 4 to 5 days, shortness of breath last night, went to IV infusion and the oncology center today and found that she have heart rate in the 180s. Patient came to the emergency room with not feeling well, shortness of breath and chest pain. History of stage IV lung cancer, left upper extremity deep vein thrombosis, currently on Xarelto for 1 month.. Patient quit smoking 22 years ago. Patient is DNR. Related Data Home Medications Medication Instructions Recorded Confirmed ferrous sulfate 325 mg (65 mg 325 mg PO DAILY 08/22/21 02/08/22 iron) tablet (Iron (ferrous sulfate)) fluticasone furoate 100 1 inh QAM 08/22/21 02/08/22 mcg-vilanterol 25 mcg/dose inhalation powder (Breo Ellipta) Lactobacillus acidophilus 10 10,000 mmu cells PO DAILY 11/08/21 02/08/22 billion cell capsule (Probiotic) epoetin dinora 10,000 unit/mL 10,000 unit [id number] 11/08/21 02/08/22 injection solution (Epogen) lidocaine-prilocaine 2.5 %-2.5 % 1 applic topical ONCE 11/08/21 02/08/22 topical cream metoprolol tartrate 50 mg tablet 50 mg PO DAILY 11/08/21 02/08/22 omeprazole 20 mg capsule,delayed 20 mg PO DAILY 11/08/21 02/08/22 release rosuvastatin 10 mg tablet 10 mg PO DAILY 11/08/21 02/08/22 turmeric 400 mg capsule 500 mg PO DAILY 11/08/21 02/08/22 Xarelto 01/24/22 Saccharomyces boulardii 250 mg 5,000 mmu cells PO DAILY 02/21/22 capsule amlodipine 5 mg tablet 5 mg PO DAILY 02/21/22 02/21/22 cholecalciferol (vitamin D3) 50 02/21/22 mcg (2,000 unit) capsule cilostazol 100 mg tablet mg 02/21/22 cyanocobalamin (vitamin B-12) 2,000 mcg PO DAILY 02/21/22 2,000 mcg tablet dexamethasone 4 mg tablet mg 02/21/22 levofloxacin 500 mg tablet mg 02/21/22 methylprednisolone 4 mg tablets in mg 02/21/22 a dose pack multivitamin tablet 02/21/22 ondansetron HCl 8 mg tablet mg 02/21/22 Allergies Allergy/AdvReac Type Severity Reaction Status Date / Time bacitracin Allergy Mild lips Verified 02/21/22 10:46 [From Neosporin swelling ([id number])] neomycin Allergy Mild lips Verified 02/21/22 10:46 [From Neosporin swelling ([id number])] polymyxin B Allergy Mild lips Verified 02/21/22 10:46 [From Neosporin swelling ([id number])] povidone-iodine Allergy Unknown Rash Verified 02/21/22 10:46 [From Betadine] soap [From Betadine] Allergy Unknown Rash Verified 02/21/22 10:46 Review of Systems Review of Systems: All systems reviewed & are unremarkable except as noted in HPI and below PMFSH Past Medical History Medical History Anemia Cancer CKD (chronic kidney disease) COPD (chronic obstructive pulmonary disease) GERD (gastroesophageal reflux disease) History of tobacco abuse Leukopenia due to antineoplastic chemotherapy Lung cancer Medication management Non-small cell cancer of left lung Pulmonary nodule PVD (peripheral vascular disease) arterial Doppler 2017 Rheumatoid arthritis Shortness of Breath Surgical History Surgical History H/O: hysterectomy S/P tonsillectomy childhood Family History Family History Sibling Carcinoma of colon Family history of lung cancer Father Family history of lung cancer COPD (chronic obstructive pulmonary disease) Social History Social History Social History: Smoking packs per day: 1 Smoking cigarettes per day: 20.0 Years smoked: 30 Smoking pack-years: 30.00 Smoking status: Former smoker Tobacco type
[2022-02-21] MEDS: SODIUM CHLORIDE 0.9% IV 1,000 ML 999 ML IV CONT (11:56)
--- NOTE | 2022-02-21 12:31 | PM.IMHP ---
H&P: HPI History of Present Illness Date/Time: 02/21/22 12:31 Chief Complaint: Fast heart rate Narrative: This is a 76-year-old female patient who has a history of non small cell lung cancer and is undergoing immunotherapy with Dr. ballard. The patient has been complaining of chest pain over the last 4-5 days and shortness of breath. Patient with to IV infusion in the Oncology Center today and was found to have a heart rate in the 180s. Patient came to the emergency room with not feeling well, shortness of breath and chest pain. She has had a history of a left upper extremity DVT thrombosis and has been on Xarelto for the last month. The patient is a DNR. Patient has been coughing and stated she had pneumonia a month ago. She was given adenosine and IV fluids in her heart rate came down to the 1 teens and was found to be sinus tachycardia. Her H&H is 9.0 and 28.9 but she has a history of anemia. Sodium was slightly low at 134. She does have a history of having chronic renal failure stage III. Today her BUN was 35 and creatinine 1.8. Her baseline is anywhere from 1.2 -1.8. Her 1st troponin is 0.078. BNP is 8690. Her TSH is 3.13 which is normal. Her urine looks contaminated with many urine squamous epithelial cells. The patient is being admitted to observation status on the date of service 02/22/2020. Review of Systems Review of Systems: See HPI All systems reviewed & are unremarkable except as noted in HPI and below Constitutional: Constitutional: Reports as per HPI and Reports no additional constitutional complaints Eyes: Eyes: Reports as per HPI and Reports no additional eye complaints ENT: Reports system reviewed and no additional complaints, except as documented and Reports Normal hearing present Cardiovascular: Cardiovascular: Reports no additional cardiovascular complaints Respiratory: Respiratory: Reports no additional respiratory complaints and Reports no additional respiratory complaints Gastrointestinal: Gastrointestinal: Reports as per HPI and Reports no additional gastrointestinal complaints Musculoskeletal: Musculoskeletal: Reports no additional musculoskeletal complaints Integumentary/Breasts: Skin/Breast: Reports system reviewed and no additional complaints, except as docu and Reports as per HPI Neurologic: Reports system reviewed and no additional complaints, except as documented, Reports as per HPI and Reports Normal hearing present Psychiatric: Psychiatric: Reports no additional psychiatric complaints and Reports as per HPI Endocrine: Endocrine: Reports no additional endocrine complaints Hematologic/Lymphatic: Hematologic/Lymphatic: Reports no additional hematologic/lymphatic complaints Allergic/Immunologic: Allergic/Immunologic: Reports no additional allergic/immunologic complaints [facility] Past Medical History Medical History (Updated 02/21/22 @ 14:38 by Betsy Tomas NP) Anemia Cancer CKD (chronic kidney disease) COPD (chronic obstructive pulmonary disease) DVT (deep venous thrombosis) Upper extremity GERD (gastroesophageal reflux disease) Herpes zoster without complication History of tobacco abuse Left leg cellulitis Leukopenia due to antineoplastic chemotherapy Lung cancer Medication management Mixed hyperlipidemia Mixed hyperlipidemia Non-small cell cancer of left lung fr[place]sca Pulmonary nodule PVD (peripheral vascular disease) arterial Doppler 2018 Rheumatoid arthritis Shortness of Breath Surgical History Surgical History H/O: hysterectomy S/P bronchoscopy with biopsy S/P tonsillectomy childhood Family History Family History Sibling Carcinoma of colon Family history of lung cancer Father Family history of lung cancer COPD (chronic obstructive pulmonary disease) Social History Social History (Updated 02/21/22 @ 14:22 by Betsy Tomas NP) Social History:
[2022-02-21 12:57] LABS: Basophils Absolute Auto 0.1 K/mm3 (0.0-0.1); Basophils Percent Auto 0.5 % (0.2-1.2); Eosinophils Percent Auto 0.3 % (0-4.4); Hematocrit 28.9 % (37.0-47.0); Immature Granulocyte Absolute 0.09 K/mm3 (0.00-0.031); Immature Granulocyte Percent A 0.7 % (0-0.5); Lymphocytes Absolute Auto 1.09 K/mm3 (0.9-3.2); Lymphocytes Percent Auto 8.3 % (18.3-44.2); Mean Corpuscular HGB Conc 31.1 g/dl (32-36); Mean Corpuscular Volume 102.8 fl (80-100); Mean Platelet Volume 9.4 fl (7.4-10.4); Monocytes Absolute Auto 0.7 K/mm3 (0.1-0.6); Monocytes Percent Auto 5.2 % (2.6-8.5); Neutrophils Absolute Auto 11.2 K/mm3 (1.3-6.7); Platelet Count Result 355 k/mm3 (150-375); Red Blood Count 2.81 M/mm3 (4.2-5.4); Red Cell Distribution Width 18.9 % (11.5-14.5); White Blood Count 13.2 K/mm3 (4.5-10.0)
[2022-02-21 13:11] LABS: INR 2.6; Prothrombin Time 26.9 Seconds (11.1-14.7)
[2022-02-21 13:14] LABS: Alanine Aminotransferase 45 U/L (6-35); Albumin Level 2.8 g/dL (3.5-5.1); Alkaline Phosphatase 127 U/L (38-126); Anion Gap 8 mmol/L (8-16); Aspartate Amino Transferase 43 U/L (14-36); Bilirubin,Total 0.7 mg/dL (0.2-1.3); Blood Urea Nitrogen 35 mg/dL (7-17); Calcium 8.2 mg/dL (8.4-10.2); Carbon Dioxide 22 mmol/L (22-30); Chloride 104 mmol/L (98-107); Estimated CRCL calculation 28 ml/min; Estimated Glomerular Filt Rate 34; Glucose 97 mg/dL (65-110); Partial Thromboplastin Time 32.6 SECONDS (22.3-36.8); Potassium 4.2 mmol/L (3.4-5.0); Sodium 134 mmol/L (137-145)
[2022-02-21 13:22] LABS: NT Pro B Type Natriuretic Pept 8690 pg/mL (5-100)
[2022-02-21 13:30] LABS: Troponin I 0.078 ng/mL (0.000-0.034)
[2022-02-21 13:33] LABS: Appearance Urine Clear (Clear); Bilirubin Urine 1+ (Negative); Blood Urine Negative (Negative); Color Urine Yellow (Yellow); Glucose Urine UA Negative (Negative); Ketones Urine 1+ mg/dL (Negative); Leukocyte Esterase Ur Negative LEU/UL (Negative); Nitrate Urine Negative (Negative); Protein Urine 1+ mg/dL (Negative); Specific Grav Ur >= 1.030 (1.001-1.035); Urobilinogen Urine 0.2 mg/dL (<2.0); pH Urine 5.5 (5.0-9.0)
[2022-02-21 13:49] LABS: Bacteria Urine Trace /hpf; Mucus Urine Rare /lpf; Squamous Epithelial Cell Urine Many /hpf (Few)
[2022-02-21 13:51] LABS: Add Urine Microscopic? YES
[2022-02-21 15:27] LABS: SARS-CoV-2 RNA PCR Negative
[2022-02-21] MEDS: ASPIRIN 81 MG CHEWABLE TABLET 324 MG PO (16:57)
[2022-02-21] MEDS: PANTOPRAZOLE SODIUM IV 40 MG VIAL IV PUSH ×2 (16:58→21:02)
[2022-02-21] MEDS: SODIUM CHLORIDE 0.9% IV 1,000 ML 75 ML IV CONT (17:02)
[2022-02-21] MEDS: guaiFENesin/DEXTROMETHORPHAN 10 ML UDC PO ×2 (17:27→21:02)
--- NOTE | 2022-02-21 18:04 | PDONCCN ---
HPI - Date of Consult Date/Time: 02/21/22 18:04 Requesting Physician: Waleska Julien DO Primary Care Provider: Shweta Cobb MD - Consult Narrative Reason for consult: Metastatic lung cancer Narrative: Skylar Aguilera is a 76 year old female with history of stage I A non-small cell lung cancer diagnosed in March 13, 2022 status post right upper lobe biopsy. She completed SBRT treatment in April 2020. In June of 2021 she developed scattered pulmonary nodules consistent with metastatic disease. Patient was started on immunotherapy with nivolumab on August 2021. She was in the office today for continuation of nivolumab treatment. She became hypotensive and developed tachycardia. She was complaining of tiredness and fatigue. She denies any chest pain but had chest pain episode 1 week ago. She was slightly short of breath. No fevers and chills. No signs of infection. She was sent to the ER due to persistent tachycardia and hypotension. Patient had echocardiogram done that showed LV function of 70%. Patient is also on Xarelto for history of left upper extremity DVT diagnosed in December 2021. Review of Systems - Review of Systems All systems reviewed & are unremarkable except as noted in HPI and bel - Neurologic Reports system reviewed and no additional complaints, except as documented, Reports hearing normal [facility] Medical History: Medical History (Last Updated 02/21/22 @ 14:38 by Betsy Tomas NP) Anemia Cancer CKD (chronic kidney disease) COPD (chronic obstructive pulmonary disease) DVT (deep venous thrombosis) Upper extremity GERD (gastroesophageal reflux disease) Herpes zoster without complication History of tobacco abuse Left leg cellulitis Leukopenia due to antineoplastic chemotherapy Lung cancer Medication management Mixed hyperlipidemia Mixed hyperlipidemia Non-small cell cancer of left lung fr[place]sca Pulmonary nodule PVD (peripheral vascular disease) arterial Doppler 2018 Rheumatoid arthritis Shortness of Breath Surgical History: Surgical History (Last Reviewed 02/21/22 @ 14:19 by Betsy Tomas NP) H/O: hysterectomy S/P bronchoscopy with biopsy S/P tonsillectomy childhood Family History: Family History (Last Reviewed 02/21/22 @ 14:19 by Betsy Tomas NP) Sibling Carcinoma of colon Family history of lung cancer Father Family history of lung cancer COPD (chronic obstructive pulmonary disease) - Social History Social History: Social History (Last Updated 02/21/22 @ 14:22 by TOBY Navarrete Gender Identity: Gender identity (if verbalized by the patient): Female Sexual Orientation: Sexual Orientation (if Verbalized by the Patient): Straight or Heterosexual Alcohol Use: Alcohol intake: never Alcohol use details: has not had alcohol for many years Substance Use: Substance use: never Substance use type: does not use Others: Spiritual care concerns: No Smoking Status: Smoking status: Former smoker Tobacco type: cigarettes Second hand tobacco smoke exposure: Yes Smoking end date: 08/10/97 Smoking Pack-years: Smoking packs per day: 1 Smoking cigarettes per day: 20.0 Years smoked: 30 Smoking pack-years: 30.00 Comments: Additional smoking assessment comments: quit around 1997, smoked 1ppd for 30 years Exam - Vital Signs Vital Signs - 24 hr 02/21/22 10:44 02/21/22 10:58 02/21/22 11:00 Temperature 37.0 C Pulse Rate 188 H 108 H 106 H Respiratory Rate 34 H 20 26 H Blood Pressure 140/62 Pulse Oximetry 100 99 98 Oxygen Delivery Room Air 02/21/22 11:01 02/21/22 11:19 02/21/22 11:32 Temperature Pulse Rate 105 H 108 H 110 H Respiratory Rate 24 H 26 H 22 H Blood Pressure 134/54 L Pulse Oximetry 99 Oxygen Delivery 02/21/22 11:51 02/21/22 12:00 02/21/22 12:19 Temperature Pulse Rate 108 H 109 H 108 H Respiratory Rate 27 H
[2022-02-21 18:08] LABS: Troponin I 0.108 ng/mL (0.000-0.034)
--- NOTE | 2022-02-21 19:01 | ADMGEN ---
This patient, Skylar Aguilera, was admitted to IMU Room 205-02 at 1630. Patient/family oriented to hospital policies and general routines including ID bracelet, bed and alarms, visiting hours, pain management, procedures, bathroom and other care routines, personal items, smoking policy, room service/diet, and visiting hours. Information on how to activate the Rapid Response Team has been discussed. Patient/Family are encouraged to report perceived risks to care and to ask questions if they do not understand what they are told or what they should do.
[2022-02-21] MEDS: EPOETIN ALFA-EPBX 20,000 UNITS/ML VIAL 20000 UNITS SUB-Q (21:03)
[2022-02-21] MEDS: LEVALBUTEROL HFA (*SP) 15 GM INHALER 2 PUFF INHALATION (23:15)
[2022-02-21] MEDS: METOPROLOL TARTRATE INJ 5 MG/5 ML VIAL IV PUSH (23:27)
[2022-02-22] VITALS (24 sets, daily range): BP systolic 129–150; BP diastolic 56–96; PULSE 118–159; RESP 20–30; TEMP 36.4–36.9; O2SAT 94–100; BMI 26.3
--- NOTE | 2022-02-22 01:12 | ECG_ITS ---
Measurements Intervals [place] Rate: 134 P: MT: 0 QRS: 32 QRSD: 71 T: 0 QT: 177 QTc: 264 Interpretive Statements ATRIAL FLUTTER/TACHYCARDIA WITH RAPID VENTRICULAR RESPONSE LOW QRS VOLTAGE IN PRECORDIAL LEADS NONSPECIFIC ST & T-WAVE ABNORMALITY- ANTEROLAT/INF LEADS ABNORMAL ECG COMPARED TO ECG 02/21/2022 10:56:15 ATRIAL FLUTTER NOW PRESENT Electronically Signed On 02-22-2022 7:13:11 CDT by Chris Abbasi D.O.
[2022-02-22] MEDS: METOPROLOL TARTRATE INJ 5 MG/5 ML VIAL 10 MG IV PUSH (01:42)
[2022-02-22] MEDS: METOPROLOL TARTRATE 50 MG TAB PO ×3 (03:41→20:29)
[2022-02-22] MEDS: SODIUM CHLORIDE 0.9% IV 1,000 ML 75 ML IV CONT (03:44)
[2022-02-22 04:54] LABS: Basophils Absolute Auto 0.1 K/mm3 (0.0-0.1); Basophils Percent Auto 0.6 % (0.2-1.2); Eosinophils Absolute Auto 0.1 K/mm3 (0-0.3); Eosinophils Percent Auto 1.2 % (0-4.4); Hematocrit 30.1 % (37.0-47.0); Hemoglobin 9.6 g/dL (12.0-15.0); Immature Granulocyte Absolute 0.04 K/mm3 (0.00-0.031); Immature Granulocyte Percent A 0.4 % (0-0.5); Lymphocytes Absolute Auto 0.72 K/mm3 (0.9-3.2); Mean Corpuscular HGB Conc 31.9 g/dl (32-36); Mean Corpuscular Hemoglobin 32.4 pg (26-34); Mean Corpuscular Volume 101.7 fl (80-100); Mean Platelet Volume 8.9 fl (7.4-10.4); Monocytes Absolute Auto 0.6 K/mm3 (0.1-0.6); Monocytes Percent Auto 5.4 % (2.6-8.5); Neutrophils Absolute Auto 8.8 K/mm3 (1.3-6.7); Neutrophils Percent Auto 85.4 % (45.5-73.1); Platelet Count Result 374 k/mm3 (150-375); Red Blood Count 2.96 M/mm3 (4.2-5.4); Red Cell Distribution Width 18.7 % (11.5-14.5); White Blood Count 10.2 K/mm3 (4.5-10.0)
[2022-02-22 05:03] LABS: Lactic Acid Reflex 0.7 mmol/L (0.7-2.0)
[2022-02-22 05:08] LABS: Alanine Aminotransferase 41 U/L (6-35); Albumin Level 2.7 g/dL (3.5-5.1); Alkaline Phosphatase 125 U/L (38-126); Anion Gap 7 mmol/L (8-16); Aspartate Amino Transferase 45 U/L (14-36); Bilirubin,Total 0.7 mg/dL (0.2-1.3); Blood Urea Nitrogen 25 mg/dL (7-17); CRP 8.5 mg/dL (<1.0); Calcium 8.3 mg/dL (8.4-10.2); Carbon Dioxide 21 mmol/L (22-30); Chloride 106 mmol/L (98-107); Estimated CRCL calculation 32 ml/min; Estimated Glomerular Filt Rate 40; Glucose 110 mg/dL (65-110); Lactate Dehydrogenase 169 U/L (120-246); Lipase 64 U/L (23-300); Magnesium 1.7 mg/dL (1.6-2.3); Phosphorus 3.8 mg/dL (2.5-4.5); Potassium 4.5 mmol/L (3.4-5.0); Sodium 134 mmol/L (137-145)
[2022-02-22 05:19] LABS: Troponin I 0.086 ng/mL (0.000-0.034)
[2022-02-22] MEDS: HYDROXYCHLOROQUINE SULFATE 200 MG TABLET 400 MG PO (09:15)
[2022-02-22] MEDS: FOLIC ACID 1 MG TABLET BY MOUTH (09:15)
[2022-02-22] MEDS: CHOLECALCIFEROL 1,000 UNITS TABLET 2000 UNITS BY MOUTH (09:15)
[2022-02-22] MEDS: MULTIVITAMINS THERAPEUTIC TAB (*BKC) 1 TABLET BY MOUTH (09:15)
[2022-02-22] MEDS: ROSUVASTATIN 10 MG TABLET PO (09:15)
[2022-02-22] MEDS: cilostazoL 100 MG TABLET BY MOUTH ×2 (09:16→20:29)
[2022-02-22] MEDS: CYANOCOBALAMIN 1,000 MCG TABLET 1000 MCG PO (09:16)
[2022-02-22] MEDS: FERROUS SULFATE 324 MG TABLET PO (09:16)
[2022-02-22] MEDS: guaiFENesin/DEXTROMETHORPHAN 10 ML UDC PO ×3 (09:20→21:31)
[2022-02-22] MEDS: FLUTICASONE/SALMETEROL 115-21 MCG INHALER 1 PUFF 2 PUFF INHALATION (09:24)
[2022-02-22] MEDS: PANTOPRAZOLE SODIUM IV 40 MG VIAL IV PUSH ×2 (09:56→20:29)
[2022-02-22] MEDS: METOPROLOL TARTRATE INJ 5 MG/5 ML VIAL IV PUSH (09:56)
--- NOTE | 2022-02-22 10:52 | ECG_ITS ---
Measurements Intervals [place] Rate: 131 P: ME: 0 QRS: 7 QRSD: 77 T: 120 QT: 160 QTc: 236 Interpretive Statements ATRIAL FLUTTER/TACHYCARDIA WITH RAPID VENTRICULAR RESPONSE LOW QRS VOLTAGE IN PRECORDIAL LEADS NONSPECIFIC ST & T-WAVE ABNORMALITY- DIFFUSE LEADS ABNORMAL ECG COMPARED TO ECG 02/22/2022 01:16:51 NO SIGNIFICANT CHANGES Electronically Signed On 02-22-2022 11:03:47 CDT by Chris Abbasi D.O.
[2022-02-22] MEDS: dilTIAZem HCl INJ 25 MG/5 ML VIAL 10 MG IV PUSH (11:30)
--- NOTE | 2022-02-22 11:37 | PC.NURSE ---
Pt heart rate in 130-140's this AM after report was received from night RN. Dr. Julien made aware of this issue at 0829. Pt had already received Lopressor IVP 5mg x1 and 10mg x1 per night RN as well as 50mg PO Metoprolol. 0934: Dr. Lopez, lard maker percussion instrument tuner, called and message left with no return call obtained. 0936: Dr. Julien made aware that pt's heart rate remains 138-142. New order to give 1200 dose of 50mg PO Metoprolol and 5mg IVP Lopressor x1. Medications given at 0956. 1052: Dr. Julien notified that patient's heart rate remains 130-140 after medication administration approximately one hour prior. Also that Cardiology has been notified. New order for 12 lead EKG and to call with results. 1108: Dr. Lopez called and messaged left with no return call obtained. 1110: Dr. Julien notified 12 lead EKG reads Aflutter RVR, but upon examination of reading by MD, ICU director and 2 RN's it's determined that 12 lead EKG reads as Sinus Tach at 131. New order for Cardizem 10mg IVP. Also informed Dr. Julien that Cardiology had been called after 12 lead was obtained and no answer. Message left with no return call obtained. 1115: This RN also notified by unitizer that percussion instrument tuner lard maker returned phone calls and stated That if it's an emergency to call Dr. Lou , who is in the senior cytogenetics laboratory director with procedures currently. 1210: Dr. Lopez returned call and spoke with this RN and informed her of the situation with the percussion instrument tuner list. Dr. Lopez is currently not on campus and will be here as soon as possible. This RN notified Dr. Lopez of pt's heart rate. MD stated That's ok, since she's stable and asymptomatic. If something changes and makes it an emergent please call Dr. Lou.
--- NOTE | 2022-02-22 14:07 | PM.CNCAR ---
Assessment and Plan Assessment and plan (1) Chest pain: Code(s): R07.9 - Chest pain, unspecified Status: Acute Assessment and Plan: No clear evidence of ACS. EKG shows no acute ST or T-wave abnormalities. No significant rise and fall to troponins. I think that her chest pain is predominantly described as pleuritic in nature and unlikely cardiac (2) Elevated troponin: Code(s): R77.8 - Other specified abnormalities of plasma proteins Status: Acute Assessment and Plan: No significant rise or fall. Discontinue further troponins and a SIRS a change in clinical status. Not related ACS (3) Atrial flutter: Code(s): I48.92 - Unspecified atrial flutter Status: Acute Assessment and Plan: In atrial flutter at this point with rapid ventricular response. Will start her on amiodarone 150 mg IV bolus with standard drip per protocol. Will discontinue further diltiazem and hold hydroxychloroquine for the time being given its risk of QT prolongation. 2D echocardiogram will be ordered and reviewed. She is already on Xarelto for anticoagulation purposes because of her DVT. This will be continued. If there is no response to the amiodarone, consider cardioversion. I will also discontinue further IV fluids as to not cause iatrogenic volume overload. Will also check a TSH and free T4 level. (4) Non-small cell cancer of left lung: Code(s): C34.92 - Malignant neoplasm of unspecified part of left bronchus or lung Status: Acute Assessment and Plan: Undergoing immunotherapy and treatment per Oncology (5) Benign essential HTN: Code(s): I10 - Essential (primary) hypertension Status: Acute Assessment and Plan: At reasonable goal (6) DVT (deep venous thrombosis): Code(s): I82.409 - Acute embolism and thrombosis of unspecified deep veins of unspecified lower extremity Status: Acute Assessment and Plan: On anticoagulation History of Present Illness History of Present Illness Consult date/time: 02/22/22 14:07 Requesting physician: Betsy Tomas NP Consult reason: Other (Atrial flutter) Reason For Visit: SVT,KHANH,CHEST PAIN,STAGE IV LUNG CANCER Narrative: Reason for consultation: Atrial flutter Date of service 02/22/2022 Requesting provider: Betsy Tomas History: Patient is a 76-year-old female who has stage IV non-small cell lung cancer. She is undergoing immunotherapy by Oncology. Yesterday she went to the infusion center and was found have an elevated heart rate. Patient has been more short of breath over the past couple of days. She also some chest pain over the weekend. Chest pain was described as ?bone pain ?and worsened by breathing. She states that it hurt to breathe as well as to cough. She was coughing significantly over the weekend. She denies any syncope, paroxysmal nocturnal dyspnea, presyncope. She does have some swelling of her lower extremities off and on which is not particularly new or different. She was brought to the emergency department because of the elevated heart rate it was given adenosine and IV fluids. Heart rate did come down supposedly to ?sinus tachycardia?. She clearly went back into atrial flutter at around 9:00 p.m. last night. Heart rates have been elevated but she is tolerating it well. She is not short of breath at rest. Review of Systems Review of Systems: All systems reviewed & are unremarkable except as noted in HPI and below Constitutional: Constitutional: Denies body ache(s) Eyes: Eyes: Denies blurry vision ENT: Reports Normal hearing present Cardiovascular: Cardiovascular: Reports leg edema and Denies palpitations Respiratory: Respiratory: Reports cough, Reports dyspnea and Reports dyspnea on exertion Gastrointestinal: Gastrointestinal: Denies abdominal pain Genitourinary: Genitourinary: Denies hematuria Musculoskeletal: Musculoskeletal: Denies back pain and Denies myalgia
[2022-02-22] MEDS: AMIODARONE 150 MG/D5W 100 ML 150 MG/100 ML BAG 600 MG IV CONT (14:42)
[2022-02-22] MEDS: AMIODARONE 360 MG/D5W 200 ML 360 MG/200 ML BAG 33.33 MG IV CONT (14:44)
--- NOTE | 2022-02-22 14:58 | PM.IMPN ---
Progress Note: A&P Assessment and Plan (1) SVT (supraventricular tachycardia): Code(s): I47.1 - Supraventricular tachycardia Status: Acute Assessment and Plan: Appreciate cardiology consultation, appears to be atrial flutter with rapid ventricular response, started on amiodarone bolus with drip per Cardiology, echo pending, continue Xarelto (2) Elevated troponin: Code(s): R77.8 - Other specified abnormalities of plasma proteins Status: Acute Assessment and Plan: No ischemia suspected per Cardiology (3) Chest pain: Code(s): R07.9 - Chest pain, unspecified Status: Acute Assessment and Plan: Thought to be pleuritic per Cardiology (4) CKD (chronic kidney disease): Code(s): N18.9 - Chronic kidney disease, unspecified Status: Acute Assessment and Plan: Improving (5) Dehydration: Code(s): E86.0 - Dehydration Status: Acute Assessment and Plan: Resolved (6) DVT (deep venous thrombosis): Code(s): I82.409 - Acute embolism and thrombosis of unspecified deep veins of unspecified lower extremity Status: Acute Assessment and Plan: Continue Xarelto (7) GERD (gastroesophageal reflux disease): Code(s): K21.9 - Gastro-esophageal reflux disease without esophagitis Status: Acute Assessment and Plan: Continue PPI (8) Non-small cell cancer of left lung: Code(s): C34.92 - Malignant neoplasm of unspecified part of left bronchus or lung Status: Acute Assessment and Plan: Appreciate oncology consultation, pending (9) Mixed hyperlipidemia: Code(s): E78.2 - Mixed hyperlipidemia Status: Acute Assessment and Plan: Continue statin (10) Benign essential HTN: Code(s): I10 - Essential (primary) hypertension Status: Acute Assessment and Plan: Stable Plan DVT prophylaxis with Xarelto GI prophylaxis with PPI Code status DNR Subjective Date/time seen: 02/22/22 14:58 Interval history: Patient states she feels a little weak today. No overnight events noted. No chest pain or shortness of breath. No nausea, vomiting or diarrhea. No fevers or chills. Review of Systems Review of Systems: 12 point review of systems was assessed and was negative except as noted in the HPI Exam Narrative: General: No acute distress, alert and oriented per baseline HEENT: Atraumatic, normocephalic, mucous membranes moist CV: Tachycardia, S1, S2 Lungs: Clear to auscultation bilaterally, no rales or crackles noted, no wheezes, good air entry Abdomen: Soft, nontender, nondistended Extremities: Normal to inspection Skin: No rashes noted, no lesions or wounds seen Psych: Euthymic, normal affect Objective Data Vital Signs Vital Signs: Vital Signs - 24 hr 02/21/22 15:00 02/21/22 15:01 02/21/22 15:15 Temperature Pulse Rate 107 H 107 H 106 H Respiratory Rate 33 H 28 H 29 H Blood Pressure 126/59 L Pulse Oximetry 100 98 100 Oxygen Delivery Oxygen Flow Rate 02/21/22 15:16 02/21/22 15:30 02/21/22 15:31 Temperature Pulse Rate 108 H 109 H 108 H Respiratory Rate 23 H 24 H 34 H Blood Pressure 132/46 L 134/44 L Pulse Oximetry 100 99 95 Oxygen Delivery Oxygen Flow Rate 02/21/22 15:47 02/21/22 16:00 02/21/22 16:16 Temperature Pulse Rate 107 H 100 108 H Respiratory Rate 30 H 32 H 20 Blood Pressure 130/42 L Pulse Oximetry 100 98 100 Oxygen Delivery Oxygen Flow Rate 02/21/22 16:38 02/21/22 18:00 02/21/22 18:25 Temperature 97.6 F Pulse Rate 112 H 106 H Respiratory Rate 20 Blood Pressure 151/39 H Pulse Oximetry 97 Oxygen Delivery Room Air Oxygen Flow Rate 02/21/22 20:00 02/21/22 23:27 02/21/22 23:39 Temperature 97.9 F 97.3 F L Pulse Rate 104 H 144 H 127 H Respiratory Rate 20 20 Blood Pressure 141/41 H 146/53 H Pulse Oximetry 98 100 Oxygen Delivery Oxygen Flow Rate 02/21/22
[2022-02-22] MEDS: BENZONATATE 100 MG CAPSULE 200 MG PO (17:06)
[2022-02-22] MEDS: RIVAROXABAN 20 MG TABLET PO (17:06)
[2022-02-22] MEDS: AMIODARONE 360 MG/D5W 200 ML 360 MG/200 ML BAG 16.67 MG IV CONT (20:28)
[2022-02-23] VITALS (19 sets, daily range): BP systolic 108–149; BP diastolic 52–82; PULSE 125–157; RESP 16–30; TEMP 36.3–36.6; O2SAT 92–97
[2022-02-23] MEDS: BENZONATATE 100 MG CAPSULE 200 MG PO ×2 (00:02→09:39)
[2022-02-23] MEDS: AMIODARONE 360 MG/D5W 200 ML 360 MG/200 ML BAG 16.67 MG IV CONT ×2 (09:15→20:11)
[2022-02-23] MEDS: FLUTICASONE/SALMETEROL 115-21 MCG INHALER 1 PUFF 2 PUFF INHALATION (09:18)
[2022-02-23] MEDS: CYANOCOBALAMIN 1,000 MCG TABLET 1000 MCG PO (09:35)
[2022-02-23] MEDS: cilostazoL 100 MG TABLET BY MOUTH ×2 (09:35→20:11)
[2022-02-23] MEDS: ROSUVASTATIN 10 MG TABLET PO (09:35)
[2022-02-23] MEDS: METOPROLOL TARTRATE 50 MG TAB PO ×2 (09:35→20:11)
[2022-02-23] MEDS: FOLIC ACID 1 MG TABLET BY MOUTH (09:35)
[2022-02-23] MEDS: FERROUS SULFATE 324 MG TABLET PO (09:35)
[2022-02-23] MEDS: CHOLECALCIFEROL 1,000 UNITS TABLET 2000 UNITS BY MOUTH (09:35)
[2022-02-23] MEDS: MULTIVITAMINS THERAPEUTIC TAB (*BKC) 1 TABLET BY MOUTH (09:35)
[2022-02-23] MEDS: PANTOPRAZOLE SODIUM IV 40 MG VIAL IV PUSH ×2 (09:36→20:11)
[2022-02-23] MEDS: RIVAROXABAN 20 MG TABLET PO (16:46)
[2022-02-23] MEDS: guaiFENesin/CODEINE (*CRX) 200/20 MG 10 ML SYRUP PO ×2 (16:46→21:21)
--- NOTE | 2022-02-23 17:17 | PM.IMPN ---
Progress Note: A&P Assessment and Plan (1) SVT (supraventricular tachycardia): Code(s): I47.1 - Supraventricular tachycardia Status: Acute Assessment and Plan: Appreciate cardiology consultation, appears to be atrial flutter with rapid ventricular response, started on amiodarone bolus with drip per Cardiology, echo pending, continue Xarelto Plan is for amiodarone drip over the weekend, cardioversion on Friday if still in a flutter (2) Elevated troponin: Code(s): R77.8 - Other specified abnormalities of plasma proteins Status: Acute Assessment and Plan: No ischemia suspected per Cardiology (3) Chest pain: Code(s): R07.9 - Chest pain, unspecified Status: Acute Assessment and Plan: Resolved (4) CKD (chronic kidney disease): Code(s): N18.9 - Chronic kidney disease, unspecified Status: Acute Assessment and Plan: Improving (5) Dehydration: Code(s): E86.0 - Dehydration Status: Acute Assessment and Plan: Resolved (6) DVT (deep venous thrombosis): Code(s): I82.409 - Acute embolism and thrombosis of unspecified deep veins of unspecified lower extremity Status: Acute Assessment and Plan: Continue Xarelto (7) GERD (gastroesophageal reflux disease): Code(s): K21.9 - Gastro-esophageal reflux disease without esophagitis Status: Acute Assessment and Plan: Continue PPI (8) Non-small cell cancer of left lung: Code(s): C34.92 - Malignant neoplasm of unspecified part of left bronchus or lung Status: Acute Assessment and Plan: Appreciate oncology consultation, pending (9) Mixed hyperlipidemia: Code(s): E78.2 - Mixed hyperlipidemia Status: Acute Assessment and Plan: Continue statin (10) Benign essential HTN: Code(s): I10 - Essential (primary) hypertension Status: Acute Assessment and Plan: Stable Plan DVT prophylaxis with Xarelto GI prophylaxis with PPI Code status DNR Subjective Date/time seen: 02/23/22 17:17 Interval history: Patient feeling better today. No overnight events noted. No chest pain or shortness of breath. No nausea, vomiting or diarrhea. No fevers or chills. Review of Systems Review of Systems: 12 point review of systems was assessed and was negative except as noted in the HPI All systems reviewed & are unremarkable except as noted in HPI and below Exam Narrative: General: No acute distress, alert and oriented per baseline HEENT: Atraumatic, normocephalic, mucous membranes moist CV: Irregularly irregular, S1, S2 Lungs: Clear to auscultation bilaterally, no rales or crackles noted, no wheezes, good air entry Abdomen: Soft, nontender, nondistended Extremities: Normal to inspection Skin: No rashes noted, no lesions or wounds seen Psych: Euthymic, normal affect Objective Data Vital Signs Vital Signs: Vital Signs - 24 hr 02/22/22 18:00 02/22/22 20:00 02/22/22 20:28 Temperature 98.3 F Pulse Rate 142 H 140 H 144 H Respiratory Rate 30 H Blood Pressure 145/56 H Pulse Oximetry 95 Oxygen Delivery Oxygen Flow Rate 02/22/22 20:29 02/22/22 20:00 02/22/22 22:00 Temperature Pulse Rate 144 H 142 H 135 H Respiratory Rate Blood Pressure Pulse Oximetry Oxygen Delivery Oxygen Flow Rate 02/22/22 22:00 02/23/22 00:00 02/23/22 00:22 Temperature Pulse Rate 135 H 140 H 125 H Respiratory Rate Blood Pressure Pulse Oximetry Oxygen Delivery Oxygen Flow Rate 02/23/22 00:00 02/23/22 02:00 02/23/22 02:00 Temperature 97.8 F Pulse Rate 140 H 144 H 143 H Respiratory Rate 26 H Blood Pressure 137/68 Pulse Oximetry 95 Oxygen Delivery Oxygen Flow Rate 02/23/22 04:33 02/23/22 04:00 02/23/22 04:00 Temperature 97.8 F Pulse Rate 147 H 150 H 148 H Respiratory Rate 30 H Blood Pressure 149/82 H Pulse Oximetry 97 Oxygen [employer]
--- NOTE | 2022-02-23 17:25 | PM.PNCARD ---
Progress Note: A&P Assessment and Plan (1) Atrial flutter: Code(s): I48.92 - Unspecified atrial flutter Status: Acute (2) DVT (deep venous thrombosis): Code(s): I82.409 - Acute embolism and thrombosis of unspecified deep veins of unspecified lower extremity Status: Acute (3) Chest pain: Code(s): R07.9 - Chest pain, unspecified Status: Acute (4) Elevated troponin: Code(s): R77.8 - Other specified abnormalities of plasma proteins Status: Acute (5) SVT (supraventricular tachycardia): Code(s): I47.1 - Supraventricular tachycardia Status: Acute (6) Mixed hyperlipidemia: Code(s): E78.2 - Mixed hyperlipidemia Status: Acute (7) Non-small cell cancer of left lung: Code(s): C34.92 - Malignant neoplasm of unspecified part of left bronchus or lung Status: Acute Plan Continue with Amiodarone drip. Increase Metoprolol as tolerated. As patient remains hemodynamically stable, no urgent indication for cardioversion. If patient remains in atrial flutter on Friday, will plan for UMA and DCCV to be done Friday morning. Continue Xarelto for anticoagulation. Would obtain lower extremity Duplex to rule out DVT. Patient agrees to be FULL CODE for the UMA and DCCV. Subjective Date/time seen: 02/23/22 17:25 Interval history: Patient remains in atrial flutter this morning. On Amio drip. Blood pressure stable. Review of Systems Review of Systems: All systems reviewed & are unremarkable except as noted in HPI and below (subjective) Exam Const: General: comfortable and no acute distress HENMT: Mouth: Yes moist mucous membranes Neck: Neck: no JVD Resp: Effort & Inspection: normal respiratory effort Auscultation: clear to auscultation bilaterally Cardio: Rate: tachycardic Rhythm: regular rhythm Heart sounds: no murmurs Skin: General skin exam: normal color Psych: Mental Status: mental status grossly normal Objective Data Vital Signs Vital Signs: Vital Signs - 24 hr 02/22/22 18:00 02/22/22 20:00 02/22/22 20:28 Temperature 36.8 C Pulse Rate 142 H 140 H 144 H Respiratory Rate 30 H Blood Pressure 145/56 H Pulse Oximetry 95 Oxygen Delivery Oxygen Flow Rate 02/22/22 20:29 02/22/22 20:00 02/22/22 22:00 Temperature Pulse Rate 144 H 142 H 135 H Respiratory Rate Blood Pressure Pulse Oximetry Oxygen Delivery Oxygen Flow Rate 02/22/22 22:00 02/23/22 00:00 02/23/22 00:22 Temperature Pulse Rate 135 H 140 H 125 H Respiratory Rate Blood Pressure Pulse Oximetry Oxygen Delivery Oxygen Flow Rate 02/23/22 00:00 02/23/22 02:00 02/23/22 02:00 Temperature 36.6 C Pulse Rate 140 H 144 H 143 H Respiratory Rate 26 H Blood Pressure 137/68 Pulse Oximetry 95 Oxygen Delivery Oxygen Flow Rate 02/23/22 04:33 02/23/22 04:00 02/23/22 04:00 Temperature 36.6 C Pulse Rate 147 H 150 H 148 H Respiratory Rate 30 H Blood Pressure 149/82 H Pulse Oximetry 97 Oxygen Delivery Oxygen Flow Rate 02/23/22 06:00 02/23/22 08:00 02/23/22 08:35 Temperature 36.3 C L Pulse Rate 151 H 152 H 157 H Respiratory Rate 24 H Blood Pressure 146/52 H Pulse Oximetry 96 Oxygen Delivery Oxygen Flow Rate 02/23/22 09:15 02/23/22 09:35 02/23/22 08:00 Temperature Pulse Rate 157 H 157 H Respiratory Rate Blood Pressure Pulse Oximetry 94 Oxygen Delivery Nasal Cannula Oxygen Flow Rate 2 02/23/22 12:00 02/23/22 08:00 02/23/22 10:00 Temperature 36.6 C Pulse Rate 152 H 152 H 145 H Respiratory Rate 16 Blood Pressure 124/63 Pulse Oximetry 97 Oxygen Delivery Oxygen Flow Rate 02/23/22 12:00 02/23/22 14:00 02/23/22 15:59 Temperature 36.6 C Pulse Rate 149 H 156 H 153 H Respiratory Rate 16 Blood Pressure 136/54 L Pulse Oximetry 96 Oxygen Delivery Oxygen Flow Rate Intake/Output Intake/Output: I
[2022-02-24] VITALS (19 sets, daily range): BP systolic 111–152; BP diastolic 50–62; PULSE 81–157; RESP 14–26; TEMP 36.1–37; O2SAT 94–96
[2022-02-24] MEDS: guaiFENesin/DEXTROMETHORPHAN 10 ML UDC PO (04:27)
[2022-02-24] MEDS: AMIODARONE 360 MG/D5W 200 ML 360 MG/200 ML BAG 16.67 MG IV CONT ×2 (08:51→19:51)
[2022-02-24] MEDS: FLUTICASONE/SALMETEROL 115-21 MCG INHALER 1 PUFF 2 PUFF INHALATION (08:53)
[2022-02-24] MEDS: ROSUVASTATIN 10 MG TABLET PO (09:00)
[2022-02-24] MEDS: FOLIC ACID 1 MG TABLET BY MOUTH (09:00)
[2022-02-24] MEDS: cilostazoL 100 MG TABLET BY MOUTH ×2 (09:00→21:04)
[2022-02-24] MEDS: MULTIVITAMINS THERAPEUTIC TAB (*BKC) 1 TABLET BY MOUTH (09:00)
[2022-02-24] MEDS: METOPROLOL TARTRATE 50 MG TAB PO ×2 (09:00→21:04)
[2022-02-24] MEDS: FERROUS SULFATE 324 MG TABLET PO (09:00)
[2022-02-24] MEDS: PANTOPRAZOLE SODIUM IV 40 MG VIAL IV PUSH ×2 (09:01→21:04)
[2022-02-24] MEDS: CHOLECALCIFEROL 1,000 UNITS TABLET 2000 UNITS BY MOUTH (09:01)
[2022-02-24] MEDS: CYANOCOBALAMIN 1,000 MCG TABLET 1000 MCG PO (09:01)
--- NOTE | 2022-02-24 10:48 | PM.IMPN ---
Progress Note: A&P Assessment and Plan (1) SVT (supraventricular tachycardia): Code(s): I47.1 - Supraventricular tachycardia Status: Acute Assessment and Plan: Appreciate cardiology consultation, appears to be atrial flutter with rapid ventricular response, started on amiodarone bolus with drip per Cardiology, echo pending, continue Xarelto Plan is for amiodarone drip over the weekend, cardioversion on Friday if still in a flutter Remains in 140s-150s, aflutter, hemodynamically stable and essentially asymptomatic, plan for UMA and CV tomorrow Midline placed today, lost peripheral IV access (2) Elevated troponin: Code(s): R77.8 - Other specified abnormalities of plasma proteins Status: Acute Assessment and Plan: No ischemia suspected per Cardiology (3) Chest pain: Code(s): R07.9 - Chest pain, unspecified Status: Acute Assessment and Plan: Resolved (4) CKD (chronic kidney disease): Code(s): N18.9 - Chronic kidney disease, unspecified Status: Acute Assessment and Plan: Improving (5) Dehydration: Code(s): E86.0 - Dehydration Status: Acute Assessment and Plan: Resolved (6) DVT (deep venous thrombosis): Code(s): I82.409 - Acute embolism and thrombosis of unspecified deep veins of unspecified lower extremity Status: Acute Assessment and Plan: Continue Xarelto (7) GERD (gastroesophageal reflux disease): Code(s): K21.9 - Gastro-esophageal reflux disease without esophagitis Status: Acute Assessment and Plan: Continue PPI (8) Non-small cell cancer of left lung: Code(s): C34.92 - Malignant neoplasm of unspecified part of left bronchus or lung Status: Acute Assessment and Plan: Appreciate oncology consultation, pending (9) Mixed hyperlipidemia: Code(s): E78.2 - Mixed hyperlipidemia Status: Acute Assessment and Plan: Continue statin (10) Benign essential HTN: Code(s): I10 - Essential (primary) hypertension Status: Acute Assessment and Plan: Stable Plan DVT prophylaxis with Xarelto GI prophylaxis with PPI Code status DNR Subjective Date/time seen: 02/24/22 10:48 Interval history: Patient states she feels better than yesterday. No overnight events noted. No chest pain or shortness of breath. No nausea, vomiting or diarrhea. No fevers or chills. Review of Systems Review of Systems: 12 point review of systems was assessed and was negative except as noted in the HPI Exam Narrative: General: No acute distress, alert and oriented per baseline HEENT: Atraumatic, normocephalic, mucous membranes moist CV: Irregularly irregular, S1, S2 Lungs: Clear to auscultation bilaterally, no rales or crackles noted, no wheezes, good air entry Abdomen: Soft, nontender, nondistended Extremities: Normal to inspection Skin: No rashes noted, no lesions or wounds seen Psych: Euthymic, normal affect Objective Data Vital Signs Vital Signs: Vital Signs - 24 hr 02/23/22 12:00 02/23/22 12:00 02/23/22 14:00 Temperature 98 F Pulse Rate 152 H 149 H 156 H Respiratory Rate 16 Blood Pressure 124/63 Pulse Oximetry 97 Oxygen Delivery Oxygen Flow Rate 02/23/22 15:59 02/23/22 12:00 02/23/22 16:00 Temperature 98 F Pulse Rate 153 H Respiratory Rate 16 Blood Pressure 136/54 L Pulse Oximetry 96 95 92 Oxygen Delivery Nasal Cannula Nasal Cannula Oxygen Flow Rate 2 2 02/23/22 18:00 02/23/22 16:00 02/23/22 20:11 Temperature Pulse Rate 155 H 144 H 157 H Respiratory Rate Blood Pressure Pulse Oximetry Oxygen Delivery Oxygen Flow Rate 02/23/22 20:11 02/23/22 20:11 02/23/22 20:00 Temperature 97.9 F Pulse Rate 157 H 157 H 150 H Respiratory Rate 18 Blood Pressure 108/54 L Pulse Oximetry 97 Oxygen Delivery Oxygen Flow Rate 02/23/22 20:00 02/24/22 00:00 02/24/22 00
[2022-02-24 12:37] LABS: Basophils Absolute Auto 0.1 K/mm3 (0.0-0.1); Basophils Percent Auto 0.6 % (0.2-1.2); Eosinophils Absolute Auto 0.2 K/mm3 (0-0.3); Eosinophils Percent Auto 1.9 % (0-4.4); Hematocrit 29.2 % (37.0-47.0); Hemoglobin 9.3 g/dL (12.0-15.0); Immature Granulocyte Absolute 0.03 K/mm3 (0.00-0.031); Immature Granulocyte Percent A 0.4 % (0-0.5); Lymphocytes Absolute Auto 0.84 K/mm3 (0.9-3.2); Lymphocytes Percent Auto 10.6 % (18.3-44.2); Mean Corpuscular HGB Conc 31.8 g/dl (32-36); Mean Corpuscular Hemoglobin 32.4 pg (26-34); Mean Corpuscular Volume 101.7 fl (80-100); Mean Platelet Volume 8.8 fl (7.4-10.4); Monocytes Absolute Auto 1.1 K/mm3 (0.1-0.6); Monocytes Percent Auto 14.2 % (2.6-8.5); Neutrophils Absolute Auto 5.7 K/mm3 (1.3-6.7); Neutrophils Percent Auto 72.3 % (45.5-73.1); Platelet Count Result 498 k/mm3 (150-375); Red Blood Count 2.87 M/mm3 (4.2-5.4); Red Cell Distribution Width 18.2 % (11.5-14.5); White Blood Count 7.9 K/mm3 (4.5-10.0)
[2022-02-24 12:52] LABS: Alanine Aminotransferase 32 U/L (6-35); Albumin Level 2.6 g/dL (3.5-5.1); Alkaline Phosphatase 107 U/L (38-126); Anion Gap 8 mmol/L (8-16); Aspartate Amino Transferase 42 U/L (14-36); Bilirubin,Total 0.3 mg/dL (0.2-1.3); Blood Urea Nitrogen 19 mg/dL (7-17); Carbon Dioxide 22 mmol/L (22-30); Chloride 100 mmol/L (98-107); Estimated CRCL calculation 38 ml/min; Estimated Glomerular Filt Rate 48; Glucose 134 mg/dL (65-110); Potassium 3.8 mmol/L (3.4-5.0); Sodium 130 mmol/L (137-145)
--- NOTE | 2022-02-24 13:36 | PM.PNCARD ---
Progress Note: A&P Assessment and Plan (1) Atrial flutter: Code(s): I48.92 - Unspecified atrial flutter Status: Acute Plan Continue with Amiodarone drip. Continue with Metoprolol. Continue with Xarelto. UMA / DCCV planned for tomorrow. NPO at midnight. Patient agrees to be full code for the UMA and DCCV. Subjective Date/time seen: 02/24/22 13:36 Interval history: Remains in atrial flutter with RVR. Blood pressures are good. Patient reports fatigue, but otherwise denies chest pain or shortness of breath. Review of Systems Review of Systems: All systems reviewed & are unremarkable except as noted in HPI and below (subjective) Exam Const: General: no acute distress Neck: Neck: no JVD Resp: Effort & Inspection: normal respiratory effort Auscultation: clear to auscultation bilaterally Cardio: Rate: tachycardic Rhythm: regular rhythm Heart sounds: no murmurs GI: GI Palp: Yes Soft to palpation and No Tenderness to palpation present (GI) Skin: General skin exam: normal color Neuro: Speech: normal speech Extrem: General: no edema Psych: Mental Status: mental status grossly normal Objective Data Vital Signs Vital Signs: Vital Signs - 24 hr 02/23/22 14:00 02/23/22 15:59 02/23/22 16:00 Temperature 36.6 C Pulse Rate 156 H 153 H Respiratory Rate 16 Blood Pressure 136/54 L Pulse Oximetry 96 92 Oxygen Delivery Nasal Cannula Oxygen Flow Rate 2 02/23/22 18:00 02/23/22 16:00 02/23/22 20:11 Temperature Pulse Rate 155 H 144 H 157 H Respiratory Rate Blood Pressure Pulse Oximetry Oxygen Delivery Oxygen Flow Rate 02/23/22 20:11 02/23/22 20:11 02/23/22 20:00 Temperature 36.6 C Pulse Rate 157 H 157 H 150 H Respiratory Rate 18 Blood Pressure 108/54 L Pulse Oximetry 97 Oxygen Delivery Oxygen Flow Rate 02/23/22 20:00 02/24/22 00:00 02/24/22 00:00 Temperature 36.4 C Pulse Rate 150 H Respiratory Rate 18 Blood Pressure 118/55 L Pulse Oximetry 97 96 96 Oxygen Delivery Nasal Cannula Nasal Cannula Oxygen Flow Rate 3 3 02/24/22 03:40 02/23/22 20:00 02/23/22 22:00 Temperature Pulse Rate 152 H 156 H 143 H Respiratory Rate Blood Pressure Pulse Oximetry Oxygen Delivery Oxygen Flow Rate 02/24/22 00:00 02/24/22 02:00 02/24/22 04:00 Temperature Pulse Rate 148 H 153 H Respiratory Rate Blood Pressure Pulse Oximetry 95 Oxygen Delivery Nasal Cannula Oxygen Flow Rate 3 02/24/22 05:19 02/24/22 04:00 02/24/22 05:55 Temperature Pulse Rate 154 H 153 H 153 H Respiratory Rate Blood Pressure Pulse Oximetry Oxygen Delivery Oxygen Flow Rate 02/24/22 04:00 02/24/22 08:51 02/24/22 08:00 Temperature 36.5 C Pulse Rate 152 H 143 H Respiratory Rate 20 Blood Pressure 152/62 H Pulse Oximetry 94 Oxygen Delivery Nasal Cannula Oxygen Flow Rate 3 02/24/22 08:53 02/24/22 08:00 02/24/22 08:00 Temperature 36.3 C L Pulse Rate 156 H 154 H 153 H Respiratory Rate 14 Blood Pressure 125/50 L Pulse Oximetry 94 94 Oxygen Delivery Nasal Cannula Oxygen Flow Rate 3 02/24/22 10:00 02/24/22 12:00 02/24/22 12:00 Temperature Pulse Rate 135 H 151 H Respiratory Rate Blood Pressure Pulse Oximetry Oxygen Delivery Nasal Cannula Oxygen Flow Rate 3 02/24/22 12:00 Temperature 37.0 C Pulse Rate 150 H Respiratory Rate 14 Blood Pressure 116/61 Pulse Oximetry 96 Oxygen Delivery Oxygen Flow Rate Intake/Output Intake/Output: Intake & Output 02/21/22 02/22/22 02/23/22 02/24/22 23:59 23:59 23:59 23:59 Intake Total 1360 3598 1120 200 Output Total 1125 1550 300 Balance 1360 2473 -430 -100 Meds/Results Medications: Active Medications Generic Name Dose Route Start Last Admin Trade Name Freq PRN Reason Stop Dose Admin Albuterol 2.5 mg 02/21/22 22:04 Albuterol Sulfate Neb 2.5 Mg/3 Ml Inh INHALATION Q6HRT PRN
[2022-02-24] MEDS: guaiFENesin/CODEINE (*CRX) 200/20 MG 10 ML SYRUP PO ×2 (14:43→21:04)
[2022-02-24] MEDS: RIVAROXABAN 20 MG TABLET PO (18:15)
[2022-02-25] VITALS (18 sets, daily range): BP systolic 105–147; BP diastolic 43–60; PULSE 88–154; RESP 15–28; TEMP 36.1–37.2; O2SAT 91–98
[2022-02-25] MEDS: guaiFENesin/CODEINE (*CRX) 200/20 MG 10 ML SYRUP PO (01:07)
[2022-02-25 05:18] LABS: Basophils Absolute Auto 0.1 K/mm3 (0.0-0.1); Basophils Percent Auto 0.8 % (0.2-1.2); Eosinophils Absolute Auto 0.2 K/mm3 (0-0.3); Eosinophils Percent Auto 2.2 % (0-4.4); Hemoglobin 8.9 g/dL (12.0-15.0); Immature Granulocyte Absolute 0.04 K/mm3 (0.00-0.031); Immature Granulocyte Percent A 0.5 % (0-0.5); Lymphocytes Percent Auto 15.6 % (18.3-44.2); Mean Corpuscular HGB Conc 31.8 g/dl (32-36); Mean Corpuscular Hemoglobin 31.8 pg (26-34); Mean Platelet Volume 8.9 fl (7.4-10.4); Monocytes Absolute Auto 1.1 K/mm3 (0.1-0.6); Monocytes Percent Auto 14.6 % (2.6-8.5); Neutrophils Absolute Auto 5.1 K/mm3 (1.3-6.7); Neutrophils Percent Auto 66.3 % (45.5-73.1); Platelet Count Result 507 k/mm3 (150-375); Red Cell Distribution Width 18.2 % (11.5-14.5); White Blood Count 7.7 K/mm3 (4.5-10.0)
[2022-02-25 05:38] LABS: Alanine Aminotransferase 37 U/L (6-35); Albumin Level 2.5 g/dL (3.5-5.1); Alkaline Phosphatase 104 U/L (38-126); Anion Gap 6 mmol/L (8-16); Aspartate Amino Transferase 40 U/L (14-36); Bilirubin,Total 0.3 mg/dL (0.2-1.3); Blood Urea Nitrogen 18 mg/dL (7-17); Calcium 7.9 mg/dL (8.4-10.2); Carbon Dioxide 23 mmol/L (22-30); Chloride 101 mmol/L (98-107); Estimated CRCL calculation 36 ml/min; Estimated Glomerular Filt Rate 40; Glucose 117 mg/dL (65-110); Potassium 3.6 mmol/L (3.4-5.0); Sodium 130 mmol/L (137-145)
--- NOTE | 2022-02-25 07:37 | PC.NURSE ---
spoke with dr erickson, she wishes to schedule patient for paul/cv. orders were placed on the first. cardiology dept aware, and floor nurse made aware. patient is npo
[2022-02-25] MEDS: AMIODARONE 360 MG/D5W 200 ML 360 MG/200 ML BAG 16.67 MG IV CONT (08:00)
[2022-02-25] MEDS: FLUTICASONE/SALMETEROL 115-21 MCG INHALER 1 PUFF 2 PUFF INHALATION (08:08)
[2022-02-25] MEDS: PANTOPRAZOLE SODIUM IV 40 MG VIAL IV PUSH ×2 (09:09→20:25)
--- NOTE | 2022-02-25 10:30 | ECG_ITS ---
Measurements Intervals [place] Rate: 110 P: 29 MT: 139 QRS: 21 QRSD: 89 T: 28 QT: 198 QTc: 268 Interpretive Statements SINUS TACHYCARDIA WITH OCCASIONAL SUPRAVENTRICULAR PREMATURE COMPLEXES LOW QRS VOLTAGE IN PRECORDIAL LEADS NONSPECIFIC ST AND T-WAVE ABNORMALITY ABNORMAL ECG COMPARED TO ECG 02/22/2022 11:01:42 SINUS TACHYCARDIA HAS REPLACED ATRIAL FLUTTER AND HEART RATE HAS DECREASED Electronically Signed On 02-25-2022 15:10:15 CDT by Richard Portillo M.D.
--- NOTE | 2022-02-25 11:10 | SUR.PREOP ---
Addendum entered by Dayna Mabry RN 02/25/22 13:02: RETURNED TO ROOM 205.2 AT 1110. Original Note: TO [facility] 7 PER [facility] STAFF AT 1000 VIA BED ON AMIODARONE GTT AT 16.7ML/HR AND 2L O2 NC. HERE FOR UMA/CARDIOVERSION W/ DR. ROLON. PRE PROCEDURE EKG OBTAINED AT 1017 AND SHOWS SINUS TACH AT 110 WITH [facility] PAC. DR. ROLON NOTIFIED. SHE IS IN PROCEDURE AND WILL COME SEE EKG AND PT. WHEN PROCEDURE COMPLETE. DR. ROLON HERE TO [facility] AT 1045 AND SHOWN EKG AND PT. SEEN. CONFIRMED SINUS TACH. AT 1050, DR. ROLON CANCELED UMA/CV AND TO BEDSIDE TO SEE PT TO NOTIFY OF SUCH. DR. ROLON NOTIFIED PT'S FAMILY OF CANCELATION OF UMA/CV DUE TO PT'S CONVERSION TO SINUS TACH. OK TO RETURN PT. TO IMU PER DR. ROLON. REPORT CALLED TO LEXUS MEYER IN IMU. PT. RETURNED VIA BED TO IMU 205.2 ON TELE MONITOR, AMIODARONE GTT AT 16.7ML/HR AND ON 2L O2 NC.
--- NOTE | 2022-02-25 12:33 | PM.PNCARD ---
Progress Note: A&P Assessment and Plan (1) Atrial flutter: Code(s): I48.92 - Unspecified atrial flutter Status: Acute Plan Patient was scheduled for a UMA/DCCV this morning, however, patient self-converted to sinus rhythm at 9:40AM. UMA/DCCV no longer indicated. Will obtain TTE. Stop Amiodarone drip, start oral Amiodarone 400mg Daily. Continue 400mg daily x 1 week, followed by 200mg daily thereafter. Continue Metoprolol Continue Xarelto. Will have patient see our Junior Programmer Analyst as an outpatient for follow-up on atrial flutter. Subjective Date/time seen: 02/25/22 12:33 Interval history: Patient converted to sinus rhythm this AM at 9:40. EKG and telemetry both confirm sinus rhythm. Patient states she feels much better since being in sinus rhythm, feels much calmer. Review of Systems Review of Systems: All systems reviewed & are unremarkable except as noted in HPI and below (subjective) Exam Const: General: comfortable and no acute distress Neck: Neck: no JVD Resp: Effort & Inspection: normal respiratory effort Auscultation: clear to auscultation bilaterally Cardio: Rate: regular rate Rhythm: regular rhythm Heart sounds: no murmurs Skin: General skin exam: normal color Neuro: Speech: normal speech Extrem: General: no edema Psych: Mental Status: mental status grossly normal Objective Data Vital Signs Vital Signs: Vital Signs - 24 hr 02/24/22 16:00 02/24/22 16:00 02/24/22 14:00 Temperature 36.3 C L Pulse Rate 81 153 H Respiratory Rate 16 Blood Pressure 146/53 H Pulse Oximetry 94 Oxygen Delivery Nasal Cannula Oxygen Flow Rate 3 02/24/22 16:00 02/24/22 18:00 02/24/22 19:51 Temperature Pulse Rate 156 H 152 H 155 H Respiratory Rate Blood Pressure Pulse Oximetry Oxygen Delivery Oxygen Flow Rate 02/24/22 21:04 02/24/22 21:45 02/24/22 20:00 Temperature 36.1 C L Pulse Rate 157 H 148 H Respiratory Rate 26 H Blood Pressure 111/61 Pulse Oximetry 94 96 Oxygen Delivery Nasal Cannula Oxygen Flow Rate 3 02/25/22 00:06 02/24/22 20:00 02/25/22 00:00 Temperature 36.5 C Pulse Rate 147 H Respiratory Rate 16 Blood Pressure 109/58 L Pulse Oximetry 96 96 96 Oxygen Delivery Nasal Cannula Nasal Cannula Oxygen Flow Rate 3 3 02/25/22 04:00 02/25/22 04:00 02/24/22 20:00 Temperature 36.1 C L Pulse Rate 129 H 157 H Respiratory Rate 22 H Blood Pressure 121/60 Pulse Oximetry 98 98 Oxygen Delivery Nasal Cannula Oxygen Flow Rate 3 02/24/22 22:00 02/25/22 00:00 02/25/22 02:00 Temperature Pulse Rate 130 H 154 H 148 H Respiratory Rate Blood Pressure Pulse Oximetry Oxygen Delivery Oxygen Flow Rate 02/25/22 04:00 02/25/22 06:00 02/25/22 08:08 Temperature Pulse Rate 112 H 151 H Respiratory Rate Blood Pressure Pulse Oximetry 94 Oxygen Delivery Nasal Cannula Oxygen Flow Rate 3 02/25/22 08:00 02/25/22 08:00 02/25/22 10:27 Temperature 37.2 C Pulse Rate 132 H 132 H 109 H Respiratory Rate 28 H 15 Blood Pressure 105/55 L 105/55 L 125/46 L Pulse Oximetry 95 95 Oxygen Delivery Nasal Cannula Oxygen Flow Rate 3 02/25/22 12:00 Temperature 36.6 C Pulse Rate 96 Respiratory Rate 20 Blood Pressure 141/46 H Pulse Oximetry 94 Oxygen Delivery Oxygen Flow Rate Intake/Output Intake/Output: Intake & Output 02/22/22 02/23/22 02/24/22 02/25/22 23:59 23:59 23:59 23:59 Intake Total 3598 1120 940 400 Output Total 1125 1550 950 550 Balance 2473 -430 -10 -150 Meds/Results Medications: Active Medications Generic Name Dose Route Start Last Admin Trade Name Freq PRN Reason Stop Dose Admin Albuterol 2.5 mg 02/21/22 22:04 Albuterol Sulfate Neb 2.5 Mg/3 Ml Inh INHALATION Q6HRT PRN shortness of breath Amiodarone HCl 400 mg 02/25/22 11:45 Amiodarone Hcl 200 Mg Tablet PO DAILY@0800 HERMINIA Cilostazol 100 mg 02/22/22 09:00 10
--- NOTE | 2022-02-25 12:41 | WPDONCPN ---
Progress Note: A/P - Additional Plan Metastatic non-small cell lung cancer. CT chest done on February 21 showed slight worsening of mediastinal lymphadenopathy. Lung nodules are relatively stable. I plan to resume treatment with nivolumab once she is stable in about 1 week time. Unspecified atrial flutter. Patient self converted to sinus rhythm today. Cardiology input noted. Multifactorial anemia. Continue Procrit on a biweekly basis. Continue oral iron once a day. - Time Spent With Patient Total time spent is greater than 50% in coordination of care (as documented) at patient's floor/unit and/or counseling patient: 15 - 25 minutes Subjective Interval history: Metastatic non-small cell lung cancer Supraventricular tachycardia Multifactorial anemia Review of Systems - Review of Systems Patient is now feeling better. She denies any chest pain. Does have some shortness of breath. No fevers and chills. She is feeling more stronger than previously. No other new complaint. - Neurologic Reports system reviewed and no additional complaints, except as documented, Reports hearing normal, Denies abnormal speech, Denies headache(s) Exam Vital signs: Temp Pulse Resp BP Pulse Ox O2 Del Method O2 Flow Rate 36.6 C 96 20 141/46 H 94 Nasal Cannula 3 02/25/22 12:00 02/25/22 12:00 02/25/22 12:00 02/25/22 12:00 02/25/22 12:00 02/25/22 10:27 02/25/22 10:27 Narrative: Lungs are clear to auscultation bilaterally Cardiovascular regular rate rhythm no murmurs Abdomen soft nontender nondistended bowel sounds are positive Extremities no edema PN: Objective Data - Labs CBC & Chem 7: 02/25/22 04:55 02/25/22 04:55 Labs: Laboratory Results - last 24 hr 02/24/22 02/24/22 02/25/22 12:28 12:28 04:55 WBC 7.9 7.7 RBC 2.87 L 2.80 L Hgb 9.3 L 8.9 L Hct 29.2 L 28.0 L MCV 101.7 H 100.0 MCH 32.4 31.8 MCHC 31.8 L 31.8 L RDW 18.2 H 18.2 H Plt Count 498 H 507 H MPV 8.8 8.9 Immature Gran % (Auto) 0.4 0.5 Neut % (Auto) 72.3 66.3 Lymph % (Auto) 10.6 L 15.6 L Lynn % (Auto) 14.2 H 14.6 H Eos % (Auto) 1.9 2.2 Baso % (Auto) 0.6 0.8 Lymph # (Auto) 0.84 L 1.20 Lynn # (Auto) 1.1 H 1.1 H Eos # (Auto) 0.2 0.2 Baso # (Auto) 0.1 0.1 Abs Immat Gran (auto) 0.03 0.04 H Absolute Neuts (auto) 5.7 5.1 Absolute Nucleated RBC 0.0 0.0 Nucleated RBC % 0.0 0.0 Sodium 130 L Potassium 3.8 Chloride 100 Carbon Dioxide 22 Anion Gap 8 BUN 19 H Creatinine 1.10 H Estim Creat Clear Calc 38 Estimated GFR 48 L Glucose 134 H Calcium 8.0 L Total Bilirubin 0.3 AST 42 H ALT 32 Alkaline Phosphatase 107 Total Protein 6.0 L Albumin 2.6 L 02/25/22 04:55 WBC RBC Hgb Hct MCV MCH MCHC RDW Plt Count MPV Immature Gran % (Auto) Neut % (Auto) Lymph % (Auto) Lynn % (Auto) Eos % (Auto) Baso % (Auto) Lymph # (Auto) Lynn # (Auto) Eos # (Auto) Baso # (Auto) Abs Immat Gran (auto) Absolute Neuts (auto) Absolute Nucleated RBC Nucleated RBC % Sodium 130 L Potassium 3.6 Chloride 101 Carbon Dioxide 23 Anion Gap 6 L BUN 18 H Creatinine 1.30 H Estim Creat Clear Calc 36 Estimated GFR 40 L Glucose 117 H Calcium 7.9 L Total Bilirubin 0.3 AST 40 H ALT 37 H Alkaline Phosphatase 104 Total Protein 6.0 L Albumin 2.5 L
[2022-02-25] MEDS: SALINE LOCK FLUSH 10 ML IV PUSH ×2 (13:06→20:26)
[2022-02-25] MEDS: AMIODARONE HCL 200 MG TABLET 400 MG PO (13:06)
--- NOTE | 2022-02-25 17:39 | PM.IMPN ---
Progress Note: A&P Assessment and Plan (1) SVT (supraventricular tachycardia): Code(s): I47.1 - Supraventricular tachycardia Status: Acute Assessment and Plan: Patient converted from atrial flutter into normal sinus rhythm on her amiodarone drip this morning prior to the cardioversion If she remains in normal sinus rhythm, she can be discharged tomorrow on amiodarone 400 mg daily x7 days then amiodarone 200 mg daily after that (2) Elevated troponin: Code(s): R77.8 - Other specified abnormalities of plasma proteins Status: Acute Assessment and Plan: No ischemia suspected per Cardiology (3) Chest pain: Code(s): R07.9 - Chest pain, unspecified Status: Acute Assessment and Plan: Resolved (4) CKD (chronic kidney disease): Code(s): N18.9 - Chronic kidney disease, unspecified Status: Acute Assessment and Plan: Improving (5) Dehydration: Code(s): E86.0 - Dehydration Status: Acute Assessment and Plan: Resolved (6) DVT (deep venous thrombosis): Code(s): I82.409 - Acute embolism and thrombosis of unspecified deep veins of unspecified lower extremity Status: Acute Assessment and Plan: Continue Xarelto (7) GERD (gastroesophageal reflux disease): Code(s): K21.9 - Gastro-esophageal reflux disease without esophagitis Status: Acute Assessment and Plan: Continue PPI (8) Non-small cell cancer of left lung: Code(s): C34.92 - Malignant neoplasm of unspecified part of left bronchus or lung Status: Acute Assessment and Plan: Appreciate oncology consultation, pending (9) Mixed hyperlipidemia: Code(s): E78.2 - Mixed hyperlipidemia Status: Acute Assessment and Plan: Continue statin (10) Benign essential HTN: Code(s): I10 - Essential (primary) hypertension Status: Acute Assessment and Plan: Stable Plan DVT prophylaxis with Xarelto GI prophylaxis with PPI Code status DNR Subjective Date/time seen: 02/25/22 17:39 Interval history: No overnight events noted. No chest pain or shortness of breath. No nausea, vomiting or diarrhea. No fevers or chills. Review of Systems Review of Systems: 12 point review of systems was assessed and was negative except as noted in the HPI Exam Narrative: General: No acute distress, alert and oriented per baseline HEENT: Atraumatic, normocephalic, mucous membranes moist CV: Regular rate and rhythm, S1, S2 Lungs: Clear to auscultation bilaterally, no rales or crackles noted, no wheezes, good air entry Abdomen: Soft, nontender, nondistended Extremities: Normal to inspection Skin: No rashes noted, no lesions or wounds seen Psych: Euthymic, normal affect Objective Data Vital Signs Vital Signs: Vital Signs - 24 hr 02/24/22 18:00 02/24/22 19:51 02/24/22 21:04 Temperature Pulse Rate 152 H 155 H 157 H Respiratory Rate Blood Pressure Pulse Oximetry Oxygen Delivery Oxygen Flow Rate 02/24/22 21:45 02/24/22 20:00 02/25/22 00:06 Temperature 97.0 F L 97.7 F Pulse Rate 148 H 147 H Respiratory Rate 26 H 16 Blood Pressure 111/61 109/58 L Pulse Oximetry 94 96 96 Oxygen Delivery Nasal Cannula Oxygen Flow Rate 3 02/24/22 20:00 02/25/22 00:00 02/25/22 04:00 Temperature 97.0 F L Pulse Rate 129 H Respiratory Rate 22 H Blood Pressure 121/60 Pulse Oximetry 96 96 98 Oxygen Delivery Nasal Cannula Nasal Cannula Oxygen Flow Rate 3 3 02/25/22 04:00 02/24/22 20:00 02/24/22 22:00 Temperature Pulse Rate 157 H 130 H Respiratory Rate Blood Pressure Pulse Oximetry 98 Oxygen Delivery Nasal Cannula Oxygen Flow Rate 3 02/25/22 00:00 02/25/22 02:00 02/25/22 04:00 Temperature Pulse Rate 154 H 148 H 112 H Respiratory Rate Blood Pressure Pulse Oximetry Oxygen Delivery Oxygen Flow Rate 02/25/22 06:00 02/25/22 08:
[2022-02-25] MEDS: RIVAROXABAN 20 MG TABLET PO (19:30)
[2022-02-25] MEDS: guaiFENesin/DEXTROMETHORPHAN 10 ML UDC PO (19:30)
[2022-02-25] MEDS: cilostazoL 100 MG TABLET BY MOUTH (20:25)
[2022-02-25] MEDS: METOPROLOL TARTRATE 50 MG TAB PO (20:25)
[2022-02-26] VITALS (21 sets, daily range): BP systolic 128–139; BP diastolic 38–71; PULSE 71–120; RESP 14–20; TEMP 36.4–36.8; O2SAT 89–100
[2022-02-26 04:51] LABS: Basophils Absolute Auto 0.1 K/mm3 (0.0-0.1); Eosinophils Absolute Auto 0.1 K/mm3 (0-0.3); Hematocrit 27.7 % (37.0-47.0); Hemoglobin 8.8 g/dL (12.0-15.0); Immature Granulocyte Absolute 0.04 K/mm3 (0.00-0.031); Immature Granulocyte Percent A 0.6 % (0-0.5); Lymphocytes Absolute Auto 1.07 K/mm3 (0.9-3.2); Lymphocytes Percent Auto 14.8 % (18.3-44.2); Mean Corpuscular HGB Conc 31.8 g/dl (32-36); Mean Corpuscular Volume 100.7 fl (80-100); Mean Platelet Volume 8.7 fl (7.4-10.4); Monocytes Absolute Auto 1.1 K/mm3 (0.1-0.6); Monocytes Percent Auto 15.1 % (2.6-8.5); Neutrophils Absolute Auto 4.9 K/mm3 (1.3-6.7); Neutrophils Percent Auto 67.5 % (45.5-73.1); Platelet Count Result 525 k/mm3 (150-375); Red Blood Count 2.75 M/mm3 (4.2-5.4); Red Cell Distribution Width 18.4 % (11.5-14.5); White Blood Count 7.2 K/mm3 (4.5-10.0)
[2022-02-26 05:03] LABS: Alanine Aminotransferase 38 U/L (6-35); Albumin Level 2.5 g/dL (3.5-5.1); Alkaline Phosphatase 111 U/L (38-126); Anion Gap 5 mmol/L (8-16); Aspartate Amino Transferase 40 U/L (14-36); Bilirubin,Total 0.7 mg/dL (0.2-1.3); Blood Urea Nitrogen 20 mg/dL (7-17); Calcium 8.1 mg/dL (8.4-10.2); Carbon Dioxide 25 mmol/L (22-30); Chloride 99 mmol/L (98-107); Estimated CRCL calculation 36 ml/min; Estimated Glomerular Filt Rate 40; Glucose 118 mg/dL (65-110); Potassium 3.8 mmol/L (3.4-5.0); Sodium 129 mmol/L (137-145)
[2022-02-26] MEDS: FLUTICASONE/SALMETEROL 115-21 MCG INHALER 1 PUFF 2 PUFF INHALATION (07:36)
[2022-02-26] MEDS: guaiFENesin/DEXTROMETHORPHAN 10 ML UDC PO ×2 (08:15→20:06)
[2022-02-26] MEDS: AMIODARONE HCL 200 MG TABLET 400 MG PO (08:15)
[2022-02-26] MEDS: PANTOPRAZOLE SODIUM IV 40 MG VIAL IV PUSH ×2 (08:16→20:06)
[2022-02-26] MEDS: MULTIVITAMINS THERAPEUTIC TAB (*BKC) 1 TABLET BY MOUTH (08:16)
[2022-02-26] MEDS: ROSUVASTATIN 10 MG TABLET PO (08:16)
[2022-02-26] MEDS: FOLIC ACID 1 MG TABLET BY MOUTH (08:16)
[2022-02-26] MEDS: CHOLECALCIFEROL 1,000 UNITS TABLET 2000 UNITS BY MOUTH (08:16)
[2022-02-26] MEDS: METOPROLOL TARTRATE 50 MG TAB PO ×2 (08:16→20:06)
[2022-02-26] MEDS: SALINE LOCK FLUSH 10 ML IV PUSH ×3 (08:17→20:06)
[2022-02-26] MEDS: CYANOCOBALAMIN 1,000 MCG TABLET 1000 MCG PO (08:17)
[2022-02-26] MEDS: cilostazoL 100 MG TABLET BY MOUTH ×2 (08:17→20:06)
[2022-02-26] MEDS: FERROUS SULFATE 324 MG TABLET PO (08:17)
[2022-02-26] MEDS: SODIUM CHLORIDE 0.9% IV 1,000 ML 999 ML IV CONT (08:45)
--- NOTE | 2022-02-26 09:07 | PM.IMPN ---
Progress Note: A&P Assessment and Plan (1) SVT (supraventricular tachycardia): Code(s): I47.1 - Supraventricular tachycardia Status: Acute Assessment and Plan: patient continues to come in and out of AFib intermittently, rate does fluctuate from 90-115, remains asymptomatic will discuss discharge plans with Cardiology in light of this (2) Elevated troponin: Code(s): R77.8 - Other specified abnormalities of plasma proteins Status: Acute Assessment and Plan: No ischemia suspected per Cardiology (3) Chest pain: Code(s): R07.9 - Chest pain, unspecified Status: Acute Assessment and Plan: Resolved (4) CKD (chronic kidney disease): Code(s): N18.9 - Chronic kidney disease, unspecified Status: Acute Assessment and Plan: stable, baseline appears to be around 1.1-1.3, 1.3 today (5) Dehydration: Code(s): E86.0 - Dehydration Status: Acute Assessment and Plan: appears to have recurred, will give a bolus today and see if this corrects her mild hyponatremia, sodium 129 this morning, will recheck this afternoon (6) DVT (deep venous thrombosis): Code(s): I82.409 - Acute embolism and thrombosis of unspecified deep veins of unspecified lower extremity Status: Acute Assessment and Plan: Continue Xarelto appears more swollen, will recheck LUE dopplers and attempt to get a compression sleeve for comfort, likely exacerbated by lung cancer and potential lymph node congestion would recommend elevation and ice to left upper extremity per patient comfort (7) GERD (gastroesophageal reflux disease): Code(s): K21.9 - Gastro-esophageal reflux disease without esophagitis Status: Acute Assessment and Plan: Continue PPI (8) Non-small cell cancer of left lung: Code(s): C34.92 - Malignant neoplasm of unspecified part of left bronchus or lung Status: Acute Assessment and Plan: Appreciate oncology consultation, will restart chemotherapy next week, unsure if patient being in AFib will affect this (9) Mixed hyperlipidemia: Code(s): E78.2 - Mixed hyperlipidemia Status: Acute Assessment and Plan: Continue statin (10) Benign essential HTN: Code(s): I10 - Essential (primary) hypertension Status: Acute Assessment and Plan: Stable (11) Hyponatremia: Code(s): E87.1 - Hypo-osmolality and hyponatremia Status: Acute Assessment and Plan: suspect prerenal, normal EF, give 1L bolus and recheck (as noted above) Plan DVT prophylaxis with Xarelto GI prophylaxis with PPI Code status DNR Subjective Date/time seen: 02/26/22 09:07 Interval history: Patient states she still feels a little weak. No overnight events noted. No chest pain or shortness of breath. No nausea, vomiting or diarrhea. No fevers or chills. She does have a cough from her lung cancer, it appears to be at baseline. She also has left upper extremity swelling, she thinks it is a little better today than yesterday. Review of Systems Review of Systems: 12 point review of systems was assessed and was negative except as noted in the HPI Exam Narrative: General: No acute distress, alert and oriented per baseline, telemetry shows intermittent AFib overnight, rate controlled, consistently under 120, patient asymptomatic HEENT: Atraumatic, normocephalic, mucous membranes moist CV: Regular rate and rhythm, currently normal sinus rhythm at 110bpm, S1, S2 Lungs: Clear to auscultation bilaterally, no rales or crackles noted, no wheezes, good air entry Abdomen: Soft, nontender, nondistended Extremities: left upper extremity with significant pitting edema, appears less than yesterday, no erythema or warmth, only mildly tender Skin: No rashes noted, no lesions or wounds seen Psych: appears to have a slightly flattened defect today Objective Data Vital Signs Vital Signs: Vital Sign
--- NOTE | 2022-02-26 12:00 | PM.PNCARD ---
Progress Note: A&P Assessment and Plan (1) Atrial flutter: Code(s): I48.92 - Unspecified atrial flutter Status: Acute (2) DVT (deep venous thrombosis): Code(s): I82.409 - Acute embolism and thrombosis of unspecified deep veins of unspecified lower extremity Status: Acute (3) Elevated troponin: Code(s): R77.8 - Other specified abnormalities of plasma proteins Status: Acute (4) SVT (supraventricular tachycardia): Code(s): I47.1 - Supraventricular tachycardia Status: Acute (5) Mixed hyperlipidemia: Code(s): E78.2 - Mixed hyperlipidemia Status: Acute (6) Leukopenia due to antineoplastic chemotherapy: Code(s): D70.1 - Agranulocytosis secondary to cancer chemotherapy; T45.1X5A - Adverse effect of antineoplastic and immunosuppressive drugs, initial encounter Status: Acute (7) Non-small cell cancer of left lung: Code(s): C34.92 - Malignant neoplasm of unspecified part of left bronchus or lung Status: Acute Plan Continue oral Amiodarone 400mg Daily. Continue 400mg daily x 1 week, followed by 200mg daily thereafter. Continue Metoprolol Continue Xarelto. Will have patient see our Ore Trimmer as an outpatient for follow-up on atrial flutter. Subjective Date/time seen: 02/26/22 12:00 Interval history: Telemetry shows sinus rhythm/tachycardia, PACs. Good amount of artifact. No evidence of atrial fibrillation/flutter. Patient reports shortness of breath when she walks to the bathroom. Review of Systems Review of Systems: All systems reviewed & are unremarkable except as noted in HPI and below (subjective) Exam Const: General: no acute distress Neck: Neck: no JVD Resp: Auscultation: diminished lung sounds Cardio: Rate: tachycardic Rhythm: regular rhythm Heart sounds: no murmurs Skin: General skin exam: normal color Neuro: Speech: normal speech Psych: Mental Status: mental status grossly normal Objective Data Vital Signs Vital Signs: Vital Signs - 24 hr 02/25/22 13:06 02/25/22 14:00 02/25/22 16:00 Temperature Pulse Rate 112 H 103 H 111 H Respiratory Rate Blood Pressure Pulse Oximetry Oxygen Delivery 02/25/22 16:00 02/25/22 16:00 02/25/22 18:00 Temperature 37.2 C Pulse Rate 115 H 107 H Respiratory Rate 20 Blood Pressure 147/43 H Pulse Oximetry 97 Oxygen Delivery Room Air 02/25/22 20:00 02/25/22 20:25 02/25/22 23:23 Temperature 36.9 C 37.2 C Pulse Rate 118 H 116 H 88 Respiratory Rate 20 20 Blood Pressure 124/48 L 116/44 L Pulse Oximetry 91 91 Oxygen Delivery 02/25/22 20:00 02/25/22 22:00 02/26/22 00:00 Temperature Pulse Rate 104 H 93 Respiratory Rate Blood Pressure Pulse Oximetry Oxygen Delivery Room Air 02/26/22 00:00 02/26/22 01:47 02/26/22 03:51 Temperature Pulse Rate 94 102 H 111 H Respiratory Rate Blood Pressure Pulse Oximetry Oxygen Delivery 02/26/22 03:51 02/26/22 04:00 02/26/22 06:00 Temperature 36.6 C Pulse Rate 111 H 110 H Respiratory Rate 20 Blood Pressure 134/56 L Pulse Oximetry 100 Oxygen Delivery Room Air 02/26/22 07:38 02/26/22 07:55 02/26/22 08:15 Temperature 36.8 C Pulse Rate 110 H 116 H 102 H Respiratory Rate 18 16 Blood Pressure 139/51 L Pulse Oximetry 89 L Oxygen Delivery 02/26/22 08:00 02/26/22 08:00 02/26/22 10:00 Temperature Pulse Rate 114 H 89 Respiratory Rate Blood Pressure Pulse Oximetry Oxygen Delivery Room Air Intake/Output Intake/Output: Intake & Output 02/23/22 02/24/22 02/25/22 02/26/22 23:59 23:59 23:59 23:59 Intake Total 9294 898 7901 400 Output Total 1550 950 550 225 Balance -430 -10 460 175 Meds/Results Medications: Active Medications Generic Name Dose Route Start Last Admin Trade Name Freq PRN Reason Stop Dose Admin Albuterol 2.5 mg 02/21/22 22:04 Albuterol Sulfate Neb 2.5 Mg/3 Ml Inh INH
[2022-02-26 12:52] LABS: Anion Gap 6 mmol/L (8-16); Blood Urea Nitrogen 19 mg/dL (7-17); Carbon Dioxide 23 mmol/L (22-30); Chloride 104 mmol/L (98-107); Estimated CRCL calculation 39 ml/min; Estimated Glomerular Filt Rate 43; Glucose 128 mg/dL (65-110); Potassium 3.7 mmol/L (3.4-5.0); Sodium 133 mmol/L (137-145)
--- NOTE | 2022-02-26 13:19 | PCNFU ---
Nutrition Follow-Up Complete: Inadequate oral intake related to metatstatic lung cancer as evidenced by poor appetite and weight loss. Adequate meal intake at least 75% Goal:goal not met. continue original goal Pt current nutrition is heart healthy diet, ensure enlive strawberry 1xday. Last recorded weight is 81.4 kg (197lbs) Bowel Motility: no BM reported Labs Reviewed:Hgb: 8.8, Hct: 27.7, Alb: 7.5, Na: 129, GFR: 40, BUN: 20, Cr: 1.3, Glu: 118 Meds Noted:Vit D, crestor, xarelto, protonix, zofran, tumeric, multivitamin, lepressor, folic acid, ferrous sulfate, Vit B12, parceron, pletal Skin: WNL Additional Notes: Pt reports appetite has not improved. Pt meal intake average at 40%. she does not like the ensure compact-attempted to drink supplements but now she has stopped. switched to the strawberry enlive per pt request for strawberry flavor. Says the recorded wts are incorrect. Her usual body wt is 170 and she has not been eating well, so she does not suspect wt gain and reports to fluid retention. Monitor intakes, weights, labs, plan of care. Follow up in 7 days
--- NOTE | 2022-02-26 13:46 | PCNSR ---
On 02/26/22, the student, Saeed Kapadia, provided care and completed [facility] documentation on this patient. I have reviewed the student's documentation and agree with the findings.
[2022-02-26] MEDS: RIVAROXABAN 20 MG TABLET PO (17:41)
[2022-02-26] MEDS: SODIUM CHLORIDE 0.9% IV 1,000 ML 75 ML IV CONT (20:06)
[2022-02-27] VITALS (19 sets, daily range): BP systolic 93–135; BP diastolic 44–72; PULSE 74–106; RESP 16–26; TEMP 36.3–36.9; O2SAT 89–98
[2022-02-27] MEDS: guaiFENesin/DEXTROMETHORPHAN 10 ML UDC PO ×2 (05:13→10:13)
[2022-02-27] MEDS: IPRATROPIUM BR 0.02% INH SOLN 0.5 MG/2.5 ML VIAL INHALATION (05:14)
[2022-02-27] MEDS: ALBUTEROL SULFATE NEB 2.5 MG/3 ML INH INHALATION (05:14)
[2022-02-27] MEDS: SALINE LOCK FLUSH 10 ML IV PUSH ×3 (05:34→22:02)
[2022-02-27 05:36] LABS: Basophils Absolute Auto 0.1 K/mm3 (0.0-0.1); Eosinophils Absolute Auto 0.1 K/mm3 (0-0.3); Hemoglobin 8.7 g/dL (12.0-15.0); Immature Granulocyte Absolute 0.03 K/mm3 (0.00-0.031); Immature Granulocyte Percent A 0.4 % (0-0.5); Lymphocytes Absolute Auto 0.97 K/mm3 (0.9-3.2); Lymphocytes Percent Auto 13.7 % (18.3-44.2); Mean Corpuscular HGB Conc 32.2 g/dl (32-36); Mean Corpuscular Hemoglobin 31.6 pg (26-34); Mean Corpuscular Volume 98.2 fl (80-100); Mean Platelet Volume 8.6 fl (7.4-10.4); Monocytes Percent Auto 14.1 % (2.6-8.5); Neutrophils Absolute Auto 4.9 K/mm3 (1.3-6.7); Neutrophils Percent Auto 68.8 % (45.5-73.1); Platelet Count Result 533 k/mm3 (150-375); Red Blood Count 2.75 M/mm3 (4.2-5.4); Red Cell Distribution Width 18.3 % (11.5-14.5); White Blood Count 7.1 K/mm3 (4.5-10.0)
[2022-02-27 05:37] LABS: Alanine Aminotransferase 37 U/L (6-35); Albumin Level 2.5 g/dL (3.5-5.1); Alkaline Phosphatase 107 U/L (38-126); Anion Gap 9 mmol/L (8-16); Aspartate Amino Transferase 63 U/L (14-36); Bilirubin,Total 0.9 mg/dL (0.2-1.3); Blood Urea Nitrogen 15 mg/dL (7-17); Calcium 8.2 mg/dL (8.4-10.2); Carbon Dioxide 23 mmol/L (22-30); Chloride 102 mmol/L (98-107); Estimated CRCL calculation 43 ml/min; Estimated Glomerular Filt Rate 48; Glucose 108 mg/dL (65-110); Potassium 3.4 mmol/L (3.4-5.0); Sodium 134 mmol/L (137-145)
[2022-02-27] MEDS: FUROSEMIDE INJ 40 MG/4 ML VIAL IV PUSH (06:34)
--- NOTE | 2022-02-27 08:49 | ECG_ITS ---
Measurements Intervals [place] Rate: 189 P: MS: 0 QRS: 14 QRSD: 108 T: 12 QT: 233 QTc: 413 Interpretive Statements SUPRAVENTRICULAR TACHYCARDIA LOW QRS VOLTAGE IN PRECORDIAL LEADS [QRS DEFLECTION < 1.0 mV IN CHEST LEADS] NONSPECIFIC ST & T-WAVE ABNORMALITY ABNORMAL RHYTHM ECG INTERPRETATION BASED ON A DEFAULT AGE OF 40 YEARS COMPARED TO ECG 02/25/2022 10:17:07 SUPRAVENTRICULAR TACHYCARDIA NOW PRESENT Electronically Signed On 02-27-2022 15:07:36 CDT by Richard Portillo M.D.
[2022-02-27] MEDS: CYANOCOBALAMIN 1,000 MCG TABLET 1000 MCG PO (10:13)
[2022-02-27] MEDS: FERROUS SULFATE 324 MG TABLET PO (10:13)
[2022-02-27] MEDS: CHOLECALCIFEROL 1,000 UNITS TABLET 2000 UNITS BY MOUTH (10:14)
[2022-02-27] MEDS: ROSUVASTATIN 10 MG TABLET PO (10:14)
[2022-02-27] MEDS: FOLIC ACID 1 MG TABLET BY MOUTH (10:14)
[2022-02-27] MEDS: MULTIVITAMINS THERAPEUTIC TAB (*BKC) 1 TABLET BY MOUTH (10:14)
[2022-02-27] MEDS: PANTOPRAZOLE SODIUM IV 40 MG VIAL IV PUSH ×2 (10:14→22:01)
[2022-02-27] MEDS: METOPROLOL TARTRATE 50 MG TAB PO (10:14)
[2022-02-27] MEDS: cilostazoL 100 MG TABLET BY MOUTH ×2 (10:14→22:01)
[2022-02-27] MEDS: AMIODARONE HCL 200 MG TABLET 400 MG PO (10:14)
[2022-02-27] MEDS: FLUTICASONE/SALMETEROL 115-21 MCG INHALER 1 PUFF 2 PUFF INHALATION (13:21)
--- NOTE | 2022-02-27 13:42 | PM.PNCARD ---
Progress Note: A&P Assessment and Plan (1) Atrial flutter: Code(s): I48.92 - Unspecified atrial flutter Status: Acute (2) SVT (supraventricular tachycardia): Code(s): I47.1 - Supraventricular tachycardia Status: Acute Plan Will increase Metoprolol to 100mg BID for additional rate control. Continue Amiodarone 400mg daily. Patient already appropriately loaded with Amio, therefore, increase Amio dose would not be beneficial. Continue Xarelto. Continue telemetry monitoring. CXR showing small-moderate bilateral pleural effusions. Agree with intermittent IV Lasix. Subjective Date/time seen: 02/27/22 13:42 Interval history: Patient went into SVT this morning that lasted for a few minutes, and then self-converted back to sinus rhythm. Patient states she did feel palpitations at that time. Review of Systems Review of Systems: All systems reviewed & are unremarkable except as noted in HPI and below (subjective) Exam Const: General: no acute distress Resp: Other: On supplemental oxygen. Decreased breath sounds Cardio: Rate: tachycardic Rhythm: regular rhythm Heart sounds: no murmurs Skin: General skin exam: normal color Neuro: Speech: normal speech Extrem: General: no edema Psych: Mental Status: mental status grossly normal Objective Data Vital Signs Vital Signs: Vital Signs - 24 hr 02/26/22 14:00 02/26/22 16:36 02/26/22 16:00 Temperature 36.6 C Pulse Rate 104 H 105 H 105 H Respiratory Rate 16 Blood Pressure 128/50 L Pulse Oximetry 92 Oxygen Delivery Oxygen Flow Rate 02/26/22 16:00 02/26/22 18:00 02/26/22 19:50 Temperature 36.5 C Pulse Rate 105 H 120 H 102 H Respiratory Rate 16 Blood Pressure 128/38 L Pulse Oximetry 95 Oxygen Delivery Room Air Oxygen Flow Rate 02/26/22 20:06 02/26/22 20:00 02/26/22 20:00 Temperature Pulse Rate 103 H 103 H Respiratory Rate Blood Pressure Pulse Oximetry Oxygen Delivery Room Air Oxygen Flow Rate 02/26/22 22:00 02/26/22 23:34 02/27/22 00:00 Temperature 36.5 C Pulse Rate 84 71 90 Respiratory Rate 14 Blood Pressure 139/45 L Pulse Oximetry 90 Oxygen Delivery Oxygen Flow Rate 02/27/22 00:00 02/27/22 02:00 02/27/22 04:00 Temperature 36.4 C L Pulse Rate 99 95 Respiratory Rate 16 Blood Pressure 131/44 L Pulse Oximetry 98 Oxygen Delivery Room Air Oxygen Flow Rate 02/27/22 05:37 02/27/22 04:00 02/27/22 05:14 Temperature 36.3 C L Pulse Rate 102 H 100 Respiratory Rate 26 H 22 H Blood Pressure 135/64 Pulse Oximetry 93 Oxygen Delivery Room Air Oxygen Flow Rate 02/27/22 05:14 02/27/22 05:15 02/27/22 05:10 Temperature Pulse Rate Respiratory Rate Blood Pressure Pulse Oximetry 95 93 89 L Oxygen Delivery Nasal Cannula Nasal Cannula Room Air Oxygen Flow Rate 2 2 02/27/22 04:00 02/27/22 06:00 02/27/22 08:00 Temperature 36.6 C Pulse Rate 98 103 H 106 H Respiratory Rate 24 H Blood Pressure 110/65 Pulse Oximetry 93 Oxygen Delivery Oxygen Flow Rate 02/27/22 08:00 02/27/22 08:00 02/27/22 10:00 Temperature Pulse Rate 104 H 95 Respiratory Rate Blood Pressure Pulse Oximetry 93 Oxygen Delivery Nasal Cannula Oxygen Flow Rate 4 02/27/22 13:22 02/27/22 12:00 02/27/22 12:00 Temperature 36.4 C L Pulse Rate 89 Respiratory Rate 24 H Blood Pressure 133/72 Pulse Oximetry 96 93 95 Oxygen Delivery Nasal Cannula Nasal Cannula Oxygen Flow Rate 4 4 Intake/Output Intake/Output: Intake & Output 02/24/22 02/25/22 02/26/22 02/27/22 23:59 23:59 23:59 23:59 Intake Total 940 1010 570 802 Output Total 950 550 425 250 Balance -10 460 145 552 Meds/Results Medications: Active Medications Generic Name Dose Route Start Last Admin Trade Name Freq PRN Reason Stop Dose Admin Albuterol 2.5 mg 02/21/22 22:04 02/27/22 05:14 Albuterol Sulfate Neb 2.5 Mg/3 Ml In
--- NOTE | 2022-02-27 13:53 | PM.IMPN ---
Progress Note: A&P Assessment and Plan (1) SVT (supraventricular tachycardia): Code(s): I47.1 - Supraventricular tachycardia Status: Acute Assessment and Plan: patient continues to come in and out of AFib intermittently, Rate does fluctuate. Appreciate Cardiology consult. Meds adjusted. Continue Xarelto continue tele (2) Elevated troponin: Code(s): R77.8 - Other specified abnormalities of plasma proteins Status: Acute Assessment and Plan: No ischemia suspected per Cardiology (3) Chest pain: Code(s): R07.9 - Chest pain, unspecified Status: Acute Assessment and Plan: Resolved (4) CKD (chronic kidney disease): Code(s): N18.9 - Chronic kidney disease, unspecified Status: Acute Assessment and Plan: appears to be a baseline (5) Dehydration: Code(s): E86.0 - Dehydration Status: Acute Assessment and Plan: appears to review improved. (6) DVT (deep venous thrombosis): Code(s): I82.409 - Acute embolism and thrombosis of unspecified deep veins of unspecified lower extremity Status: Acute Assessment and Plan: Continue Xarelto (7) GERD (gastroesophageal reflux disease): Code(s): K21.9 - Gastro-esophageal reflux disease without esophagitis Status: Acute Assessment and Plan: Continue PPI (8) Non-small cell cancer of left lung: Code(s): C34.92 - Malignant neoplasm of unspecified part of left bronchus or lung Status: Acute Assessment and Plan: Appreciate oncology consultation, will restart chemotherapy next week, unsure if patient being in AFib will affect this (9) Mixed hyperlipidemia: Code(s): E78.2 - Mixed hyperlipidemia Status: Acute Assessment and Plan: Continue statin (10) Benign essential HTN: Code(s): I10 - Essential (primary) hypertension Status: Acute Assessment and Plan: Stable (11) Hyponatremia: Code(s): E87.1 - Hypo-osmolality and hyponatremia Status: Acute Assessment and Plan: improved. Subjective Date/time seen: 02/27/22 13:53 A flutter notice this morning. Now improved. Exam Narrative: General: No acute distress, alert and oriented per baseline, telemetry shows intermittent AFib overnight, rate controlled, consistently under 120, patient asymptomatic HEENT: Atraumatic, normocephalic, mucous membranes moist CV: Regular rate and rhythm, currently normal sinus rhythm at 110bpm, S1, S2 Lungs: Clear to auscultation bilaterally, no rales or crackles noted, no wheezes, good air entry Abdomen: Soft, nontender, nondistended Extremities: left upper extremity with significant pitting edema, appears less than yesterday, no erythema or warmth, only mildly tender Skin: No rashes noted, no lesions or wounds seen Psych: appears to have a slightly flattened defect today Objective Data Vital Signs Vital Signs: Vital Signs - 24 hr 02/26/22 14:00 02/26/22 16:36 02/26/22 16:00 Temperature 97.8 F Pulse Rate 104 H 105 H 105 H Respiratory Rate 16 Blood Pressure 128/50 L Pulse Oximetry 92 Oxygen Delivery Oxygen Flow Rate 02/26/22 16:00 02/26/22 18:00 02/26/22 19:50 Temperature 97.7 F Pulse Rate 105 H 120 H 102 H Respiratory Rate 16 Blood Pressure 128/38 L Pulse Oximetry 95 Oxygen Delivery Room Air Oxygen Flow Rate 02/26/22 20:06 02/26/22 20:00 02/26/22 20:00 Temperature Pulse Rate 103 H 103 H Respiratory Rate Blood Pressure Pulse Oximetry Oxygen Delivery Room Air Oxygen Flow Rate 02/26/22 22:00 02/26/22 23:34 02/27/22 00:00 Temperature 97.7 F Pulse Rate 84 71 90 Respiratory Rate 14 Blood Pressure 139/45 L Pulse Oximetry 90 Oxygen Delivery Oxygen Flow Rate 02/27/22 00:00 02/27/22 02:00 02/27/22 04:00 Temperature 97.5 F L Pulse Rate 99 95 Respiratory Rate 16 Blood Pressure 131/4
[2022-02-27] MEDS: RIVAROXABAN 20 MG TABLET PO (17:14)
[2022-02-27] MEDS: guaiFENesin/CODEINE (*CRX) 200/20 MG 10 ML SYRUP PO (22:01)
[2022-02-27] MEDS: METOPROLOL TARTRATE 50 MG TAB 100 MG PO (22:01)
[2022-02-28] VITALS (14 sets, daily range): BP systolic 94–118; BP diastolic 44–57; PULSE 76–101; RESP 14–20; TEMP 36.4–37; O2SAT 95–100
[2022-02-28] MEDS: SALINE LOCK FLUSH 10 ML IV PUSH ×3 (06:02→21:09)
[2022-02-28] MEDS: FLUTICASONE/SALMETEROL 115-21 MCG INHALER 1 PUFF 2 PUFF INHALATION (08:35)
[2022-02-28 08:42] LABS: Anion Gap 5 mmol/L (8-16); Blood Urea Nitrogen 17 mg/dL (7-17); Calcium 8.4 mg/dL (8.4-10.2); Carbon Dioxide 29 mmol/L (22-30); Chloride 98 mmol/L (98-107); Estimated CRCL calculation 39 ml/min; Estimated Glomerular Filt Rate 43; Glucose 96 mg/dL (65-110); Potassium 3.5 mmol/L (3.4-5.0); Sodium 132 mmol/L (137-145)
[2022-02-28] MEDS: METOPROLOL TARTRATE 50 MG TAB 100 MG PO ×2 (08:54→21:08)
[2022-02-28] MEDS: MULTIVITAMINS THERAPEUTIC TAB (*BKC) 1 TABLET BY MOUTH (08:54)
[2022-02-28] MEDS: guaiFENesin/CODEINE (*CRX) 200/20 MG 10 ML SYRUP PO ×3 (08:54→20:18)
[2022-02-28] MEDS: ROSUVASTATIN 10 MG TABLET PO (08:54)
[2022-02-28] MEDS: CHOLECALCIFEROL 1,000 UNITS TABLET 2000 UNITS BY MOUTH (08:54)
[2022-02-28] MEDS: FOLIC ACID 1 MG TABLET BY MOUTH (08:55)
[2022-02-28] MEDS: AMIODARONE HCL 200 MG TABLET 400 MG PO (08:55)
[2022-02-28] MEDS: FERROUS SULFATE 324 MG TABLET PO (08:55)
[2022-02-28] MEDS: CYANOCOBALAMIN 1,000 MCG TABLET 1000 MCG PO (08:55)
[2022-02-28] MEDS: cilostazoL 100 MG TABLET BY MOUTH ×2 (08:55→21:09)
[2022-02-28] MEDS: PANTOPRAZOLE SODIUM IV 40 MG VIAL IV PUSH ×2 (08:55→21:08)
--- NOTE | 2022-02-28 11:07 | PM.PNCARD ---
Progress Note: A&P Assessment and Plan (1) Atrial flutter: Code(s): I48.92 - Unspecified atrial flutter Status: Acute (2) SVT (supraventricular tachycardia): Code(s): I47.1 - Supraventricular tachycardia Status: Acute (3) Non-small cell cancer of left lung: Code(s): C34.92 - Malignant neoplasm of unspecified part of left bronchus or lung Status: Acute Plan Telemetry review shows sinus rhythm since yesterday morning after her SVT episode. No further episodes of SVT, no atrial fibrillation/flutter on tele. Continue Metoprolol 100mg BID for rate control along with Amio 400mg Daily. Continue with Xarelto for anticoagulation. Patient is significantly deconditioned. Encouraged patient to continue working with physical therapy. Patient referred to see our discharge specialist regarding outpatient management for atrial flutter. Subjective Date/time seen: 02/28/22 11:07 Interval history: Patient feels better this morning. Feels weak when working with physical therapy. No chest pain or palpitations. Review of telemetry overnight shows no further episodes of SVT since yesterday morning, has remained in sinus overnight and this morning. Review of Systems Review of Systems: All systems reviewed & are unremarkable except as noted in HPI and below (subjective) Exam Const: General: comfortable and no acute distress Other: Sitting up at chair at bedside Resp: Effort & Inspection: normal respiratory effort Auscultation: diminished lung sounds Cardio: Rate: regular rate Rhythm: regular rhythm Heart sounds: no murmurs GI: GI Palp: Yes Soft to palpation and No Tenderness to palpation present (GI) Skin: General skin exam: normal color Neuro: Speech: normal speech Extrem: General: no edema Psych: Mental Status: mental status grossly normal Objective Data Vital Signs Vital Signs: Vital Signs - 24 hr 02/27/22 13:22 02/27/22 12:00 02/27/22 12:00 Temperature 36.4 C L Pulse Rate 89 Respiratory Rate 24 H Blood Pressure 133/72 Pulse Oximetry 96 93 95 Oxygen Delivery Nasal Cannula Nasal Cannula Oxygen Flow Rate 4 4 02/27/22 14:50 02/27/22 12:00 02/27/22 14:00 Temperature Pulse Rate 87 101 H Respiratory Rate Blood Pressure Pulse Oximetry Oxygen Delivery Nasal Cannula Oxygen Flow Rate 4 02/27/22 16:00 02/27/22 16:00 02/27/22 16:00 Temperature 36.9 C Pulse Rate 98 97 Respiratory Rate 22 H Blood Pressure 93/59 L Pulse Oximetry 96 93 Oxygen Delivery Nasal Cannula Oxygen Flow Rate 4 02/27/22 18:00 02/27/22 20:00 02/27/22 22:01 Temperature 36.6 C Pulse Rate 100 94 97 Respiratory Rate 22 H Blood Pressure 105/48 L Pulse Oximetry 96 Oxygen Delivery Oxygen Flow Rate 02/27/22 20:00 02/27/22 20:00 02/27/22 22:00 Temperature Pulse Rate 105 H 105 H 74 Respiratory Rate 22 H Blood Pressure Pulse Oximetry 96 Oxygen Delivery Nasal Cannula Oxygen Flow Rate 3 02/27/22 23:58 02/28/22 00:00 02/28/22 00:00 Temperature 36.4 C Pulse Rate 75 76 76 Respiratory Rate 20 20 Blood Pressure 106/55 L Pulse Oximetry 97 97 Oxygen Delivery Nasal Cannula Oxygen Flow Rate 3 02/28/22 02:00 02/28/22 04:00 02/28/22 04:00 Temperature Pulse Rate 83 82 83 Respiratory Rate 20 Blood Pressure Pulse Oximetry 97 Oxygen Delivery Nasal Cannula Oxygen Flow Rate 3 02/28/22 04:00 02/28/22 06:00 02/28/22 07:37 Temperature 36.5 C Pulse Rate 97 81 Respiratory Rate 20 Blood Pressure 108/44 L Pulse Oximetry 97 Oxygen Delivery Room Air Oxygen Flow Rate 02/28/22 08:00 02/28/22 09:00 02/28/22 08:00 Temperature 36.4 C Pulse Rate 97 Respiratory Rate 20 Blood Pressure 118/52 L Pulse Oximetry 96 96 96 Oxygen Delivery Nasal Cannula Nasal Cannula Oxygen Flow Rate 4 2 Intake/Output Intake/Output: Intake & Output 02/25/22 02/26/22 02/27/22 02/28/22 23:59 23:59 23
--- NOTE | 2022-02-28 11:07 | PM.IMPN ---
Progress Note: A&P Assessment and Plan (1) SVT (supraventricular tachycardia): Code(s): I47.1 - Supraventricular tachycardia Status: Acute Assessment and Plan: patient continues to come in and out of AFib intermittently, Rate does fluctuate. Appreciate Cardiology consult. Meds adjusted. Continue Xarelto continue tele (2) Elevated troponin: Code(s): R77.8 - Other specified abnormalities of plasma proteins Status: Acute Assessment and Plan: No ischemia suspected per Cardiology (3) Chest pain: Code(s): R07.9 - Chest pain, unspecified Status: Acute Assessment and Plan: Resolved (4) CKD (chronic kidney disease): Code(s): N18.9 - Chronic kidney disease, unspecified Status: Acute Assessment and Plan: appears to be a baseline (5) Dehydration: Code(s): E86.0 - Dehydration Status: Acute Assessment and Plan: appears to review improved. (6) DVT (deep venous thrombosis): Code(s): I82.409 - Acute embolism and thrombosis of unspecified deep veins of unspecified lower extremity Status: Acute Assessment and Plan: Continue Xarelto (7) GERD (gastroesophageal reflux disease): Code(s): K21.9 - Gastro-esophageal reflux disease without esophagitis Status: Acute Assessment and Plan: Continue PPI (8) Non-small cell cancer of left lung: Code(s): C34.92 - Malignant neoplasm of unspecified part of left bronchus or lung Status: Acute Assessment and Plan: Appreciate oncology consultation, will restart chemotherapy next week, unsure if patient being in AFib will affect this (9) Mixed hyperlipidemia: Code(s): E78.2 - Mixed hyperlipidemia Status: Acute Assessment and Plan: Continue statin (10) Benign essential HTN: Code(s): I10 - Essential (primary) hypertension Status: Acute Assessment and Plan: Stable (11) Hyponatremia: Code(s): E87.1 - Hypo-osmolality and hyponatremia Status: Acute Assessment and Plan: improved. Subjective Date/time seen: 02/28/22 11:07 breathing better, no new complaints Exam Narrative: General: No acute distress, alert and oriented per baseline, telemetry shows intermittent AFib overnight, rate controlled, consistently under 120, patient asymptomatic HEENT: Atraumatic, normocephalic, mucous membranes moist CV: Regular rate and rhythm, currently normal sinus rhythm at 110bpm, S1, S2 Lungs: Clear to auscultation bilaterally, no rales or crackles noted, no wheezes, good air entry Abdomen: Soft, nontender, nondistended Extremities: left upper extremity with significant pitting edema, appears less than yesterday, no erythema or warmth, only mildly tender Skin: No rashes noted, no lesions or wounds seen Psych: appears to have a slightly flattened defect today Objective Data Vital Signs Vital Signs: Vital Signs - 24 hr 02/27/22 13:22 02/27/22 12:00 02/27/22 12:00 Temperature 97.5 F L Pulse Rate 89 Respiratory Rate 24 H Blood Pressure 133/72 Pulse Oximetry 96 93 95 Oxygen Delivery Nasal Cannula Nasal Cannula Oxygen Flow Rate 4 4 02/27/22 14:50 02/27/22 12:00 02/27/22 14:00 Temperature Pulse Rate 87 101 H Respiratory Rate Blood Pressure Pulse Oximetry Oxygen Delivery Nasal Cannula Oxygen Flow Rate 4 02/27/22 16:00 02/27/22 16:00 02/27/22 16:00 Temperature 98.5 F Pulse Rate 98 97 Respiratory Rate 22 H Blood Pressure 93/59 L Pulse Oximetry 96 93 Oxygen Delivery Nasal Cannula Oxygen Flow Rate 4 02/27/22 18:00 02/27/22 20:00 02/27/22 22:01 Temperature 97.8 F Pulse Rate 100 94 97 Respiratory Rate 22 H Blood Pressure 105/48 L Pulse Oximetry 96 Oxygen Delivery Oxygen Flow Rate 02/27/22 20:00 02/27/22 20:00 02/27/22 22:00 Temperature Pulse Rate 105 H 105 H 74 Respiratory Rate 22 H Blood
--- NOTE | 2022-02-28 15:07 | PC.NURSE ---
On 02/28/22, the student, [Amira Cuello], provided care and completed [facility] documentation on this patient. I have reviewed the student's documentation and agree with the findings.
[2022-02-28] MEDS: RIVAROXABAN 20 MG TABLET PO (17:11)
[2022-02-28 22:28] LABS: Alanine Aminotransferase 50 U/L (6-35); Albumin Level 2.7 g/dL (3.5-5.1); Alkaline Phosphatase 123 U/L (38-126); Aspartate Amino Transferase 59 U/L (14-36); Bilirubin,Total 0.6 mg/dL (0.2-1.3)
[2022-03-01] VITALS (13 sets, daily range): BP systolic 112–121; BP diastolic 44–58; PULSE 77–96; RESP 18–20; TEMP 36.2–36.6; O2SAT 87–97
[2022-03-01] MEDS: guaiFENesin/CODEINE (*CRX) 200/20 MG 10 ML SYRUP PO ×2 (04:04→10:43)
[2022-03-01 04:26] LABS: Basophils Absolute Auto 0.1 K/mm3 (0.0-0.1); Basophils Percent Auto 1.3 % (0.2-1.2); Eosinophils Absolute Auto 0.3 K/mm3 (0-0.3); Eosinophils Percent Auto 4.4 % (0-4.4); Hematocrit 27.7 % (37.0-47.0); Hemoglobin 8.7 g/dL (12.0-15.0); Immature Granulocyte Absolute 0.02 K/mm3 (0.00-0.031); Immature Granulocyte Percent A 0.3 % (0-0.5); Lymphocytes Absolute Auto 1.61 K/mm3 (0.9-3.2); Lymphocytes Percent Auto 25.2 % (18.3-44.2); Mean Corpuscular HGB Conc 31.4 g/dl (32-36); Mean Corpuscular Hemoglobin 31.2 pg (26-34); Mean Corpuscular Volume 99.3 fl (80-100); Mean Platelet Volume 8.2 fl (7.4-10.4); Monocytes Absolute Auto 0.9 K/mm3 (0.1-0.6); Monocytes Percent Auto 14.1 % (2.6-8.5); Neutrophils Absolute Auto 3.5 K/mm3 (1.3-6.7); Neutrophils Percent Auto 54.7 % (45.5-73.1); Platelet Count Result 530 k/mm3 (150-375); Red Blood Count 2.79 M/mm3 (4.2-5.4); White Blood Count 6.4 K/mm3 (4.5-10.0)
[2022-03-01 04:39] LABS: Alanine Aminotransferase 43 U/L (6-35); Albumin Level 2.6 g/dL (3.5-5.1); Alkaline Phosphatase 106 U/L (38-126); Anion Gap 7 mmol/L (8-16); Aspartate Amino Transferase 52 U/L (14-36); Bilirubin,Total 0.6 mg/dL (0.2-1.3); Blood Urea Nitrogen 16 mg/dL (7-17); Calcium 8.3 mg/dL (8.4-10.2); Carbon Dioxide 28 mmol/L (22-30); Chloride 99 mmol/L (98-107); Estimated CRCL calculation 39 ml/min; Estimated Glomerular Filt Rate 43; Glucose 101 mg/dL (65-110); Potassium 3.6 mmol/L (3.4-5.0); Sodium 134 mmol/L (137-145)
[2022-03-01] MEDS: SALINE LOCK FLUSH 10 ML IV PUSH (07:22)
[2022-03-01] MEDS: MULTIVITAMINS THERAPEUTIC TAB (*BKC) 1 TABLET BY MOUTH (08:29)
[2022-03-01] MEDS: FOLIC ACID 1 MG TABLET BY MOUTH (08:29)
[2022-03-01] MEDS: ROSUVASTATIN 10 MG TABLET PO (08:29)
[2022-03-01] MEDS: CHOLECALCIFEROL 1,000 UNITS TABLET 2000 UNITS BY MOUTH (08:29)
[2022-03-01] MEDS: AMIODARONE HCL 200 MG TABLET 400 MG PO (08:29)
[2022-03-01] MEDS: CYANOCOBALAMIN 1,000 MCG TABLET 1000 MCG PO (08:29)
[2022-03-01] MEDS: cilostazoL 100 MG TABLET BY MOUTH (08:30)
[2022-03-01] MEDS: METOPROLOL TARTRATE 50 MG TAB 100 MG PO (08:30)
[2022-03-01] MEDS: PANTOPRAZOLE SODIUM IV 40 MG VIAL IV PUSH (08:30)
[2022-03-01] MEDS: FERROUS SULFATE 324 MG TABLET PO (08:30)
[2022-03-01] MEDS: FLUTICASONE/SALMETEROL 115-21 MCG INHALER 1 PUFF 2 PUFF INHALATION (09:16)
--- NOTE | 2022-03-01 11:18 | PM.DS ---
DS: Admitting Diagnosis Discharge Date 03/01/22 Admitting Diagnosis aflutter DS: Discharge Diagnosis Discharge Diagnosis (1) SVT (supraventricular tachycardia): Code(s): I47.1 - Supraventricular tachycardia Status: Acute Assessment and Plan: patient continues to come in and out of AFib intermittently, Rate does fluctuate. Appreciate Cardiology consult. Meds adjusted. Continue Xarelto continue tele (2) Elevated troponin: Code(s): R77.8 - Other specified abnormalities of plasma proteins Status: Acute Assessment and Plan: No ischemia suspected per Cardiology (3) Chest pain: Code(s): R07.9 - Chest pain, unspecified Status: Acute Assessment and Plan: Resolved (4) CKD (chronic kidney disease): Code(s): N18.9 - Chronic kidney disease, unspecified Status: Acute Assessment and Plan: appears to be a baseline (5) Dehydration: Code(s): E86.0 - Dehydration Status: Acute Assessment and Plan: appears to review improved. (6) DVT (deep venous thrombosis): Code(s): I82.409 - Acute embolism and thrombosis of unspecified deep veins of unspecified lower extremity Status: Acute Assessment and Plan: Continue Xarelto (7) GERD (gastroesophageal reflux disease): Code(s): K21.9 - Gastro-esophageal reflux disease without esophagitis Status: Acute Assessment and Plan: Continue PPI (8) Non-small cell cancer of left lung: Code(s): C34.92 - Malignant neoplasm of unspecified part of left bronchus or lung Status: Acute Assessment and Plan: Appreciate oncology consultation, will restart chemotherapy next week, unsure if patient being in AFib will affect this (9) Mixed hyperlipidemia: Code(s): E78.2 - Mixed hyperlipidemia Status: Acute Assessment and Plan: Continue statin (10) Benign essential HTN: Code(s): I10 - Essential (primary) hypertension Status: Acute Assessment and Plan: Stable (11) Hyponatremia: Code(s): E87.1 - Hypo-osmolality and hyponatremia Status: Acute Assessment and Plan: improved. DS: Summary Hospital Course Hospital Course: admitted for aflutter, remains on anticoagulation adjusted cardiac meds, will now be on amiodarone and metoprolol fu cardiology and ep on dc - set up by cardiology home oxygen evaluation prior to dc rehab recommended patient refused and understands risk on AC for aflutter and dvt/pe fu oncology Time Spent with Patient Time attestation: Total time spent providing and/or coordinating discharge services: Exam Narrative: General: No acute distress, alert and oriented per baseline, telemetry shows intermittent AFib overnight, rate controlled, consistently under 120, patient asymptomatic HEENT: Atraumatic, normocephalic, mucous membranes moist CV: Regular rate and rhythm, currently normal sinus rhythm at 110bpm, S1, S2 Lungs: Clear to auscultation bilaterally, no rales or crackles noted, no wheezes, good air entry Abdomen: Soft, nontender, nondistended Extremities: left upper extremity with significant pitting edema, appears less than yesterday, no erythema or warmth, only mildly tender Skin: No rashes noted, no lesions or wounds seen Psych: appears to have a slightly flattened defect today DS: Data Data Completed and Pending Labs on day of discharge: Labs from last 24 hours 03/01/22 03/01/22 02/28/22 04:21 04:21 08:19 WBC 6.4 RBC 2.79 L Hgb 8.7 L Hct 27.7 L MCV 99.3 MCH 31.2 MCHC 31.4 L RDW 18.0 H Plt Count 530 H MPV 8.2 Immature Gran % (Auto) 0.3 Neut % (Auto) 54.7 Lymph % (Auto) 25.2 [place] % (Auto) 14.1 H Eos % (Auto) 4.4 Baso % (Auto) 1.3 H Lymph # (Auto) 1.61 [place] # (Auto) 0.9 H Eos # (Auto) 0.3 Baso # (Auto) 0.1 Abs Immat Gran (auto) 0.02 Absolute Neuts (auto) 3.5 Absol
--- NOTE | 2022-03-01 12:04 | PM.PNCARD ---
Progress Note: A&P Assessment and Plan (1) Atrial flutter: Code(s): I48.92 - Unspecified atrial flutter Status: Acute Plan 76-year-old lady with paroxysmal atrial fibrillation restored to sinus rhythm with amiodarone treatment. She is stable for discharge today. Amiodarone dosage is currently 400 mg daily. We will ensure that appropriate office follow-up is arranged and likely try to down titrate the dosage in the near future. There is no cardiovascular needs she needs to remain in the hospital. Byron Lou MD [facility] Subjective Date/time seen: Date of service: 03/01/22 12:04 Interval history: Follow-up visit in this 76-year-old woman with: Atrial flutter having been converted to sinus rhythm medically with amiodarone treatment. Also unfortunately with small cell lung cancer. Plans are for discharge today. Patient feels well and does not have any cardiovascular symptoms or concerns today Exam Const: General: comfortable and no acute distress HENMT: Mouth: Yes moist mucous membranes Eyes: Sclera: sclerae normal Neck: Neck: supple and no JVD Resp: Effort & Inspection: normal respiratory effort Other: Breath sounds are diminished with some dry sounding rales centrally Cardio: Rate: regular rate Rhythm: regular rhythm Other: No murmur no gallop GI: GI Palp: Yes Soft to palpation Auscultation: normal bowel sounds Skin: General skin exam: normal color Neuro: Other: Alert and oriented x3 Extrem: General: normal to inspection Objective Data Vital Signs Vital Signs: Vital Signs - 24 hr 02/28/22 14:00 02/28/22 16:00 02/28/22 16:00 Temperature Pulse Rate 85 87 Respiratory Rate Blood Pressure Pulse Oximetry 96 Oxygen Delivery Nasal Cannula Oxygen Flow Rate 2 02/28/22 16:00 02/28/22 18:00 02/28/22 20:00 Temperature 36.6 C 36.6 C Pulse Rate 87 90 91 Respiratory Rate 14 20 Blood Pressure 94/44 L 108/56 L Pulse Oximetry 96 95 Oxygen Delivery Oxygen Flow Rate 02/28/22 20:00 03/01/22 00:00 02/28/22 20:00 Temperature 36.6 C Pulse Rate 77 101 H Respiratory Rate 20 Blood Pressure 112/58 L Pulse Oximetry 95 97 Oxygen Delivery Nasal Cannula Oxygen Flow Rate 2 02/28/22 22:00 03/01/22 00:00 03/01/22 00:00 Temperature Pulse Rate 77 77 Respiratory Rate Blood Pressure Pulse Oximetry 97 Oxygen Delivery Nasal Cannula Oxygen Flow Rate 2 03/01/22 04:00 03/01/22 02:00 03/01/22 04:00 Temperature 36.6 C Pulse Rate 96 79 80 Respiratory Rate 20 Blood Pressure 121/52 L Pulse Oximetry 95 Oxygen Delivery Oxygen Flow Rate 03/01/22 04:00 03/01/22 06:00 03/01/22 08:00 Temperature 36.2 C L Pulse Rate 79 84 Respiratory Rate 18 Blood Pressure 120/44 L Pulse Oximetry 95 93 Oxygen Delivery Nasal Cannula Oxygen Flow Rate 2 03/01/22 08:00 03/01/22 08:00 03/01/22 10:00 Temperature Pulse Rate 82 85 Respiratory Rate Blood Pressure Pulse Oximetry 93 Oxygen Delivery Nasal Cannula Oxygen Flow Rate 2 Intake/Output Intake/Output: Intake & Output 02/26/22 02/27/22 02/28/22 03/01/22 23:59 23:59 23:59 23:59 Intake Total 570 1762 835 440 Output Total 425 1350 600 Balance 145 412 235 440 Meds/Results Medications: Active Medications Generic Name Dose Route Start Last Admin Trade Name Freq PRN Reason Stop Dose Admin Albuterol 2.5 mg 02/21/22 22:04 02/27/22 05:14 Albuterol Sulfate Neb 2.5 Mg/3 Ml Inh INHALATION 2.5 mg Q6HRT PRN Administration shortness of breath Amiodarone HCl 400 mg 02/25/22 11:45 03/01/22 08:29 Amiodarone Hcl 200 Mg Tablet PO 400 mg DAILY@0800 HERMINIA Administration Cilostazol 100 mg 02/22/22 09:00 03/01/22 08:30 Cilostazol 100 Mg Tablet BY MOUTH 100 mg Q12HR HERMINIA Administration Cyanocobalamin 1,000 mcg 02/22/22 09:00 03/01/22 08:29 Cyanocobalamin 1,000 Mcg Tablet PO 1,000 mcg DAILY SC
--- NOTE | 2022-03-01 13:16 | HOMEO2EVAL ---
Evaluation was performed at [facility] Home Oxygen Evaluation RC: Home Oxygen (O2) Evaluation Start: 03/01/22 11:14 Freq: ONCE Status: Active Protocol: RPE Activity Type Activity Date Activity User E-sign Co-sign Detail Recorded Client Recorded Date Recorded By Document 03/01/22 12:50 DJO [email or web address] 03/01/22 13:16 DJO Document 03/01/22 12:55 [email or web address] [email or web address] 03/01/22 13:16 DJO Document 03/01/22 13:00 DJO [email or web address] 03/01/22 13:16 DJO Document 03/01/22 13:05 [email or web address] [email or web address] 03/01/22 13:16 DJO Document 03/01/22 13:15 [email or web address] [email or web address] 03/01/22 13:16 DJO 03/01/22 03/01/22 03/01/22 12:50 12:55 13:00 Home O2 Evaluation Test Phase Resting Exercise Exercise Oxygen Delivery Room Air Room Air Nasal Cannula Oxygen Flow Rate (L/min) 1 Pulse Oximetry (90-100 %) 94 87 L 88 L Pulse Rate (60-100 beats/min) 80 90 91 Treatment Charges O2 Evaluation - Inpatient 03/01/22 03/01/22 13:05 13:15 Home O2 Evaluation Test Phase Exercise Resting Oxygen Delivery Nasal Cannula Room Air Oxygen Flow Rate (L/min) 2 Pulse Oximetry (90-100 %) 90 90 Pulse Rate (60-100 beats/min) 90 82 Treatment Charges
--- NOTE | 2022-03-01 13:23 | PCRCNOTE ---
HOME OXYGEN SET UP WITH [facility]. PHONE NUMBER
== END 2022-03-01 16:51 | disposition home health service (06) | DRG 309 ==
LOC: ANHED 11:10 → ANHIMU 15:55
PROVIDERS: Nurse Practitioner; Admitting Provider Student in an Organized Health Care Education/Training Program; Emergency Provider Emergency Medicine; PCP Family Medicine; Visit Provider Chiropractor
DX: I48.92 Unspecified atrial flutter (principal); C34.92 Malignant neoplasm of unspecified part of left bronchus or lung; C77.9 Secondary and unspecified malignant neoplasm of lymph node, unspecified; E87.1 Hypo-osmolality and hyponatremia; I47.1 Supraventricular tachycardia; D70.1 Agranulocytosis secondary to cancer chemotherapy; T45.1X5A Adverse effect of antineoplastic and immunosuppressive drugs, initial encounter; Z66 Do not resuscitate; E78.2 Mixed hyperlipidemia; I73.9 Peripheral vascular disease, unspecified; M06.9 Rheumatoid arthritis, unspecified; K21.9 Gastro-esophageal reflux disease without esophagitis; R77.8 Other specified abnormalities of plasma proteins; R07.9 Chest pain, unspecified; E86.0 Dehydration; I12.9 Hypertensive chronic kidney disease with stage 1 through stage 4 chronic kidney disease, or unspecified chronic kidney disease; N18.30 Chronic kidney disease, stage 3 unspecified; J44.9 Chronic obstructive pulmonary disease, unspecified; D64.9 Anemia, unspecified; I95.9 Hypotension, unspecified; Z20.822 Contact with and (suspected) exposure to COVID-19; Z79.01 Long term (current) use of anticoagulants; Z79.899 Other long term (current) drug therapy; Z86.718 Personal history of other venous thrombosis and embolism; Z87.891 Personal history of nicotine dependence
CPT/HCPCS: 36415; 36569; 71045; 71250; 80048; 80053; 81001; 82728; 83605; 83615; 83690; 83735; 83880; 84100; 84443; 84484; 85025; 85610; 85730; 86140; 87086; 87088; 93005; 93306; 93970; 93971; 94618; 94640; 96372; 96374; 96375; 96376; 97110; 97116; 97162; 97165; 97535; 99285; A9270; C1751; C9113; C9803; G0378; J0153; J0282; J1940; J7030; J7040; Q5105; U0003; U0005

== ENCOUNTER 2022-03-12 12:54 | Outpatient (CLI) | payer MEDICARE, SELFPAY ==
[2022-03-12 13:14] LABS: Hematocrit 30.5 % (37.0-47.0); Hemoglobin 9.4 g/dL (12.0-15.0); Mean Corpuscular HGB Conc 30.8 g/dl (32-36); Mean Corpuscular Hemoglobin 31.6 pg (26-34); Mean Corpuscular Volume 102.7 fl (80-100); Mean Platelet Volume 8.5 fl (7.4-10.4); Platelet Count Result 385 k/mm3 (150-375); Red Blood Count 2.97 M/mm3 (4.2-5.4); Red Cell Distribution Width 19.2 % (11.5-14.5); White Blood Count 47.4 K/mm3 (4.5-10.0)
[2022-03-12 14:17] LABS: Albumin Level 3.3 g/dL (3.5-5.1); Anion Gap 11 mmol/L (8-16); Blood Urea Nitrogen 18 mg/dL (7-17); Calcium 9.3 mg/dL (8.4-10.2); Carbon Dioxide 28 mmol/L (22-30); Chloride 101 mmol/L (98-107); Estimated Glomerular Filt Rate 29; Glucose 92 mg/dL (65-110); Phosphorus 3.1 mg/dL (2.5-4.5); Potassium 4.2 mmol/L (3.4-5.0); Sodium 140 mmol/L (137-145)
[2022-03-12 14:27] LABS: Parathyroid Intact 26.5 pg/mL (7.5-53.5)
[2022-03-12 14:43] LABS: Creatinine Urine 170.2 mg/dL; Total Protein Urine Random 58 mg/dL; Ur Ttl Prot Creatinine Ratio 0.34 mg/mg (0-0.20)
== END 2022-03-12 12:55 | disposition home or self-care (01) ==
LOC: ANHLAB 12:57
PROVIDERS: PCP Family Medicine; Visit Provider Internal Medicine Nephrology
DX: N18.32 Chronic kidney disease, stage 3b (principal)
CPT/HCPCS: 36415; 80069; 82306; 82570; 83970; 84156; 85027

== ENCOUNTER 2022-03-19 13:19 | Emergency (ER) | payer MEDICARE, SELFPAY ==
[2022-03-19] VITALS (21 sets, daily range): BP systolic 114–143; BP diastolic 53–65; PULSE 60–67; RESP 18–29; TEMP 36.2; O2SAT 89–100
--- NOTE | ~2022-03-19 | XR_ITS ---
XR chest 2V 03/19/2022 14:11 Indication: Cough Procedure: 2 view chest Comparison: Comparison to multiple prior studies sequentially, with oldest reviewed study dated 12/2021. Findings: Portacatheter tip in the SVC. There is chronic apical scarring, possibly secondary to prior radiation therapy treatment. Clinically correlate. Small left pleural effusion. The lungs are hyperi nflated which is consistent with, but not diagnostic of chronic obstructive pulmonary disease. There is bibasilar atelectasis. Impression: 1: Small left pleural effusion. Bibasilar atelectasis. 2: Stable apical scarring bilaterally. Reviewed, dictated and finalized at location B. Impression: 1: Small left pleural effusion. Bibasilar atelectasis. 2: Stable apical scarring bilaterally.
--- NOTE | 2022-03-19 13:26 | ED.URI ---
HPI - URI/Sore Throat General Chief Complaint: Unspecified Stated Complaint: cough and pressure in her chest Time Seen by Provider: 03/19/22 13:24 Source: patient and RN notes reviewed Mode of arrival: wheelchair Limitations: no limitations History of Present Illness MD elicited complaint: cough Onset (ago): day(s) (2) Consistency: constant Severity: moderate Able to tolerate fluids by mouth: Yes Exacerbating factors: exertion Relieving factors: nothing Associated symptoms: chest pain ( Chest pressure when coughing) Treatments prior to arrival: none Related Data Home Medications Medication Instructions Recorded Confirmed fluticasone furoate 100 1 inh QAM 08/22/21 03/19/22 mcg-vilanterol 25 mcg/dose inhalation powder (Breo Ellipta) epoetin dinora 10,000 unit/mL 10,000 unit [id number] 11/08/21 03/19/22 injection solution (Epogen) omeprazole 20 mg capsule,delayed 20 mg PO DAILY 11/08/21 03/19/22 release turmeric 400 mg capsule 1,500 mg PO DAILY 11/08/21 03/19/22 cyanocobalamin (vitamin B-12) 1,000 mcg PO DAILY 02/21/22 03/19/22 2,000 mcg tablet multivitamin 1 tablet DAILY 02/21/22 03/19/22 rivaroxaban 15 mg tablet 20 mg PO DAILY 02/21/22 03/19/22 amiodarone 200 mg tablet (Pacerone) 200 mg PO DAILY@0800 03/12/22 03/19/22 ergocalciferol (vitamin D2) 50,000 50,000 unit PO MONTHLY 03/12/22 03/19/22 unit tablet ferrous sulfate 325 mg (65 mg 325 mg PO DAILY@0800 03/12/22 03/19/22 iron) tablet folic acid 1 mg tablet 1 mg PO DAILY 03/12/22 03/19/22 loratadine-pseudoephedrine ER 10 1 tablet PO DAILY PRN Allergy 03/12/22 03/19/22 mg-240 mg tablet,extended Symptoms [id number] rosuvastatin 10 mg tablet 10 mg PO DAILY 03/12/22 03/19/22 codeine 10 mg-guaifenesin 100 mg/5 5 ml PO QID PRN Cough 03/19/22 03/19/22 mL oral liquid furosemide 40 mg tablet 40 mg PO DAILY 03/19/22 03/19/22 Allergies Allergy/AdvReac Type Severity Reaction Status Date / Time bacitracin Allergy Mild lips Verified 03/19/22 13:44 [From Neosporin swelling (izn-mar-[id number])] neomycin Allergy Mild lips Verified 03/19/22 13:44 [From Neosporin swelling (skj-rnc-[id number])] polymyxin B Allergy Mild lips Verified 03/19/22 13:44 [From Neosporin swelling ([id number]-hpj-[id number])] povidone-iodine Allergy Unknown Rash Verified 03/19/22 13:44 [From Betadine] soap [From Betadine] Allergy Unknown Rash Verified 03/19/22 13:44 Review of Systems Review of Systems: All systems reviewed & are unremarkable except as noted in HPI and below Constitutional: Constitutional: Denies chills and Denies fever(s) ENT: Reports system reviewed and no additional complaints, except as documented Cardiovascular: Cardiovascular: Denies rapid heart rate Gastrointestinal: Gastrointestinal: Denies diarrhea, Denies nausea and Denies vomiting Musculoskeletal: Musculoskeletal: Denies myalgias PMFSH Past Medical History Medical History Anemia Cancer CKD (chronic kidney disease) COPD (chronic obstructive pulmonary disease) DVT (deep venous thrombosis) Upper extremity GERD (gastroesophageal reflux disease) Herpes zoster without complication History of tobacco abuse Left leg cellulitis Leukopenia due to antineoplastic chemotherapy Lung cancer Medication management Mixed hyperlipidemia Mixed hyperlipidemia Non-small cell cancer of left lung franchesca Pulmonary nodule PVD (peripheral vascular disease) arterial Doppler 2017 Rheumatoid arthritis Shortness of Breath Surgical History Surgical History H/O: hysterectomy S/P bronchoscopy with biopsy S/P tonsillectomy childhood Family History Family History Sibling Carcinoma of colon Family history of lung cancer Father Family history of lung cancer COPD (chronic obstructive pulmonary disease) Social History Social History (Reviewed 1
--- NOTE | 2022-03-19 13:44 | ECG_ITS ---
Measurements Intervals [place] Rate: 64 P: 69 ND: 162 QRS: 23 QRSD: 85 T: 34 QT: 405 QTc: 419 Interpretive Statements SINUS RHYTHM LOW QRS VOLTAGE IN PRECORDIAL LEADS BORDERLINE ECG NONSPECIFIC T-WAVE ABNORMALITY COMPARED TO ECG 02/27/2022 08:47:52 SINUS RHYTHM NOW PRESENT Electronically Signed On 03-20-2022 16:12:21 CDT by Richard Portillo M.D.
--- NOTE | 2022-03-19 14:04 | PC.NURSE ---
PT IS IN XRAY AT THIS TIME.
[2022-03-19 14:06] LABS: Hematocrit 31.9 % (35.0-42.0); Hemoglobin 9.8 g/dL (11.7-13.8); Mean Corpuscular HGB Conc 30.7 g/dL (32.0-36.0); Mean Corpuscular Hemoglobin 30.7 pg (27.0-31.0); Mean Platelet Volume 9.7 fl (9.2-11.8); Platelet Count Result 239 K/mm3 (150-420); Red Blood Count 3.19 M/mm3 (4.20-5.40); Red Cell Distribution Width 18.5 % (11.6-14.4)
[2022-03-19 14:14] LABS: White Blood Count 22.4 K/mm3 (4.8-10.8)
[2022-03-19 14:23] LABS: Band Neutrophils Percent 2 % (0-6); Lymphocytes Absolute Manual 0.67 K/mm3 (1.1-4.5); Lymphocytes Percent Manual 3 % (18-44); Metamyelocytes Percent 1 %; Monocytes Absolute Manual 1.34 K/mm3 (0.1-0.90); Monocytes Percent Manual 6 % (3-9); Myelocytes Percent 1 %; Neutrophils Absolute Manual 19.93 K/mm3 (1.7-7.2); Neutrophils Percent Manual 87 % (46-73); Platelet Estimate Adequate (Adequate); Schistocytes None Seen (NORMAL); Total Cells Counted 100
[2022-03-19 14:32] LABS: Alanine Aminotransferase 35 U/L (14-59); Albumin Level 2.5 g/dL (3.4-5.0); Alkaline Phosphatase 201 U/L (46-116); Anion Gap 6 mmol/L (8-16); Aspartate Amino Transferase 28 U/L (15-37); Bilirubin,Total 0.6 mg/dL (0.00-1.00); Blood Urea Nitrogen 21 mg/dL (7-18); Calcium 8.5 mg/dL (8.5-10.1); Carbon Dioxide 31 mmol/L (21-32); Chloride 99 mmol/L (98-108); Estimated CRCL calculation 23 ml/min; Estimated Glomerular Filt Rate 27; Glucose 101 mg/dL (70-99); Osmolality Calculated 285 mOsm/kg (285-295); Potassium 3.9 mmol/L (3.5-5.1); Sodium 136 mmol/L (136-145); Total Protein 6.8 g/dL (6.4-8.2); Troponin I 18.7 ng/L (0.00-60.4)
[2022-03-19 14:33] LABS: Magnesium 1.4 mg/dL (1.8-2.4); NT Pro B Type Natriuretic Pept 3786 pg/mL (0-450)
--- NOTE | 2022-03-19 14:45 | PC.NURSE ---
PT HAS RETURNED FROM XRAY. FAMILY AT BEDSIDE. VSS PER MONITOR. NAD NOTED. PT IS AWAITING EKG AND RESULTS AT THIS TIME. CARDIO PULM WAS NOTIFIED AGAIN. WILL CONTINUE TO MONITOR.
[2022-03-19] MEDS: IPRATROPIUM 0.5 MG/ALBUTEROL SULFATE 2.5 MG AMPUL.NEB 3 ML INHALATION (15:35)
--- NOTE | 2022-03-19 15:38 | PC.NURSE ---
PT IS GETTING NEB TX AT THIS TIME. FAMILY AT BEDSIDE. WILL CONTINUE TO MONITOR.
[2022-03-19] MEDS: methylPREDNISolone SOD SUCC 125 MG VIAL IM (15:52)
== END 2022-03-19 16:11 | disposition home or self-care (01) ==
PROVIDERS: Emergency Provider Emergency Medicine; PCP Family Medicine
DX: J44.1 Chronic obstructive pulmonary disease with (acute) exacerbation (principal); I50.9 Heart failure, unspecified; N18.9 Chronic kidney disease, unspecified; Z86.718 Personal history of other venous thrombosis and embolism; K21.9 Gastro-esophageal reflux disease without esophagitis; E78.2 Mixed hyperlipidemia; Z87.891 Personal history of nicotine dependence
CPT/HCPCS: 36415; 71046; 80053; 83735; 83880; 84484; 85025; 86140; 93005; 94640; 96372; 99284; J2930

== ENCOUNTER 2022-04-22 13:29 | Outpatient (CLI) | payer MEDICARE, SELFPAY ==
[2022-04-22 16:32] LABS: Creatinine Urine 18.6 mg/dL; Total Protein Urine Random 12 mg/dL; Ur Ttl Prot Creatinine Ratio 0.65 mg/mg (0-0.20)
[2022-04-22 16:32] LABS: Albumin Level 3.6 g/dL (3.5-5.1); Anion Gap 8 mmol/L (8-16); Blood Urea Nitrogen 19 mg/dL (7-17); Calcium 8.9 mg/dL (8.4-10.2); Carbon Dioxide 30 mmol/L (22-30); Chloride 98 mmol/L (98-107); Estimated Glomerular Filt Rate 27; Glucose 88 mg/dL (65-110); Phosphorus 3.7 mg/dL (2.5-4.5); Potassium 3.8 mmol/L (3.4-5.0); Sodium 136 mmol/L (137-145)
[2022-04-22 16:42] LABS: Parathyroid Intact 127.7 pg/mL (7.5-53.5)
== END 2022-04-22 13:30 | disposition home or self-care (01) ==
LOC: ANHLAB 13:40
PROVIDERS: PCP Internal Medicine Nephrology; Visit Provider Internal Medicine Nephrology
DX: N18.4 Chronic kidney disease, stage 4 (severe) (principal)
CPT/HCPCS: 36415; 80069; 82570; 83970; 84156

== ENCOUNTER 2022-05-15 16:07 | Outpatient (CLI) | payer MEDICARE, SELFPAY ==
--- NOTE | ~2022-05-15 | CT_ITS ---
CT Scan of the Chest without Contrast: Clinical Indication: Right lung neoplasm Technique: Contiguous sections were acquired throughout the chest without intravenous contrast. Dose reduction technique was used on this scan by utilizing automated exposure control and iterative recon struction technique. The dose-length product (DLP) was 327.73 mGy-cm. COMPARISON: 02/22/2022 Findings: Mild mediastinal lymphadenopathy is similar to prior exam. No axillary lymphadenopathy. No aortic ane urysm. There is no evidence of pleural or pericardial effusion. Stable biapical irregular/spiculated lesions are present. There is extension of irregular consolidati on in the right apical lesion towards the right hilum. Additional scattered subcentimeter pulmonary n odules bilaterally appear similar to prior exam, though some lesions may be obscured by pleural effus ions which were present on the prior exam. Several no associated cavitary change in the superior segm ent of the right lower lobe. Images through the upper abdomen reveal no abnormalities. Impression: Biapical spiculated lesions with satellite nodules are essentially stable from prior exam, most consi stent with treated neoplasm and/or postradiation change. Continued follow-up advised, as focal areas of active neoplasm cannot be excluded. Numerous scattered irregular subcentimeter pulmonary nodules, which are overall very similar to prior exam, compatible with metastatic disease. 2 lesions in the superior segment right lower lobe demonst rate increased cavitation as compared to prior exam. Several basilar lesions may be obscured on the p rior exam due to pleural effusions, which have resolved in the interim. Again, continued follow-up sh ould be considered. Stable mild mediastinal lymphadenopathy. Reviewed, dictated and finalized at location M. TUB WORKER HELPER Impression: Biapical spiculated lesions with satellite nodules are essentially stable from prior exam, most consistent with treated neoplasm and/or postradiation change. Continued follow-up advised, as focal areas of active neoplasm cannot be exclud ed. Numerous scattered irregular subcentimeter pulmonary nodules, which are overall very similar to prior exam, compatible with metastatic disease. 2 lesions in t he superior segment right lower lobe demonstrate increased cavitation as compar ed to prior exam. Several basilar lesions may be obscured on the prior exam due to pleural effusions, which have resolved in the interim. Again, continued fol low-up should be considered. Stable mild mediastinal lymphadenopathy.
== END 2022-05-15 16:08 | disposition home or self-care (01) ==
PROVIDERS: PCP Family Medicine; Visit Provider Internal Medicine Hematology & Oncology
DX: C34.11 Malignant neoplasm of upper lobe, right bronchus or lung (principal)
CPT/HCPCS: 71250

== ENCOUNTER 2022-05-22 13:47 | Outpatient (CLI) | payer MEDICARE, SELFPAY ==
[2022-05-22 14:07] LABS: Hematocrit 31.6 % (37.0-47.0); Hemoglobin 9.8 g/dL (12.0-15.0); Mean Corpuscular Hemoglobin 29.1 pg (26-34); Mean Corpuscular Volume 93.8 fl (80-100); Mean Platelet Volume 9.5 fl (7.4-10.4); Platelet Count Result 244 k/mm3 (150-375); Red Blood Count 3.37 M/mm3 (4.2-5.4); Red Cell Distribution Width 17.3 % (11.5-14.5); White Blood Count 5.3 K/mm3 (4.5-10.0)
[2022-05-22 16:26] LABS: Albumin Level 3.7 g/dL (3.5-5.1); Anion Gap 9 mmol/L (8-16); Blood Urea Nitrogen 52 mg/dL (7-17); Calcium 8.9 mg/dL (8.4-10.2); Carbon Dioxide 26 mmol/L (22-30); Chloride 102 mmol/L (98-107); Estimated Glomerular Filt Rate 14; Glucose 102 mg/dL (65-110); Phosphorus 3.8 mg/dL (2.5-4.5); Potassium 4.3 mmol/L (3.4-5.0); Sodium 137 mmol/L (137-145)
[2022-05-22 16:33] LABS: Creatinine Urine 57.9 mg/dL; Total Protein Urine Random 22 mg/dL; Ur Ttl Prot Creatinine Ratio 0.38 mg/mg (0-0.20)
== END 2022-05-22 13:48 | disposition home or self-care (01) ==
LOC: ANHLAB 13:48
PROVIDERS: Internal Medicine Nephrology; PCP Family Medicine; Visit Provider Internal Medicine Hematology & Oncology
DX: N18.9 Chronic kidney disease, unspecified (principal); N17.9 Acute kidney failure, unspecified
CPT/HCPCS: 36415; 80069; 82570; 84156; 85027

== ENCOUNTER 2022-05-23 16:04 | Emergency (ER) | payer MEDICARE, SELFPAY ==
--- NOTE | ~2022-05-23 | XR_ITS ---
EXAMINATION: XR chest 1V portable DATE: 05/23/2022 17:01 INDICATION: Non-small cell lung cancer. Pedal edema. TECHNIQUE: A single frontal view of the chest was obtained. COMPARISON: Chest 2 views 03/19/2022, chest CT 05/15/2022 FINDINGS: Again seen airspace opacities in the upper lobes. Sg B-lines are noted, consistent mild pulmonary edema. No pleural effusion or pneumothorax. Cardiomegaly is noted. There is a left subclav camron port with tip in left brachiocephalic vein. There is displacement of the catheter between the cla vicle and first rib. IMPRESSION: 1. Stable airspace opacities in the upper lobes, likely a combination of metastatic disease, radiatio n pneumonitis, and granulomatous disease. 2. Mild pulmonary edema. 3. Cardiomegaly. Reviewed, dictated and finalized at location A. UIT BREAKER SUPERVISOR IMPRESSION: 1. Stable airspace opacities in the upper lobes, likely a combination of metast atic disease, radiation pneumonitis, and granulomatous disease. 2. Mild pulmonary edema. 3. Cardiomegaly.
[2022-05-23 16:22] VITALS: BP 142/60; PULSE 64; RESP 16; TEMP 36.7; O2SAT 100
--- NOTE | 2022-05-23 16:49 | ECG_ITS ---
Measurements Intervals [place] Rate: 58 P: 74 UT: 179 QRS: 0 QRSD: 90 T: 29 QT: 423 QTc: 417 Interpretive Statements SINUS BRADYCARDIA LOW QRS VOLTAGE IN PRECORDIAL LEADS [QRS DEFLECTION < 1.0 mV IN CHEST LEADS] NONSPECIFIC T-WAVE ABNORMALITY COMPARED TO ECG 03/19/2022 15:05:08 NO SIGNIFICANT CHANGE Electronically Signed On 05-24-2022 14:36:31 CHEMICAL LABORATORY ASSISTANT by Byron Lou M.D.
--- NOTE | 2022-05-23 16:51 | ED.GENADULT ---
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 Comorbidities include paroxysmal atrial fibrillation on amiodarone, rivaroxaban, and metoprolol. Other comorbidities include rheumatoid arthritis, COPD, DVT, SVT, hyperlipidemia, anemia of chronic disease. there is no known congestive heart failure but she was seen in the emergency room and was felt to be in heart failure so was prescribed Lasix 80 mg. She has been taking that orally for the last several days. She presents with increased pedal edema over the last week, occasional dyspnea, feels dehydrated, feels weak and tired and fatigued. The feelings of weakness have increased over the last few days. She also feels hot and cold but no documented fevers, along with dyspnea. Her main complaint is the pedal edema however. This is symmetric and bilateral. She had routine labs yesterday. See results below. BUN 52, creatinine 3.3 yesterday, worse than BUN 41 creatinine 3.3 on 05/13/2022, worse than BUN 31, creatinine 2.6 on 05/06/2022. She was referred here for further evaluation given her elevated BUN and creatinine as well as the pedal edema, for intravenous Lasix diuresis. Related Data Home Medications Medication Instructions Recorded Confirmed fluticasone furoate 100 1 inh QAM 08/22/21 05/23/22 mcg-vilanterol 25 mcg/dose inhalation powder (Breo Ellipta) multivitamin 1 tablet DAILY 02/21/22 05/23/22 rivaroxaban 15 mg tablet 20 mg PO DAILY 02/21/22 05/23/22 amiodarone 200 mg tablet (Pacerone) 200 mg PO DAILY@0800 03/12/22 05/23/22 folic acid 1 mg tablet 1 mg PO DAILY 03/12/22 05/23/22 rosuvastatin 10 mg tablet 10 mg PO DAILY 03/12/22 05/23/22 furosemide 40 mg tablet 80 mg PO DAILY 03/19/22 05/23/22 Allergies Allergy/AdvReac Type Severity Reaction Status Date / Time bacitracin Allergy Mild lips Verified 05/23/22 17:01 [From Neosporin swelling (bxy-anj-cmiut)] neomycin Allergy Mild lips Verified 05/23/22 17:01 [From Neosporin swelling (ywk-ovy-cykpk)] polymyxin B Allergy Mild lips Verified 05/23/22 17:01 [From Neosporin swelling (prc-aao-okaig)] povidone-iodine Allergy Unknown Rash Verified 05/23/22 17:01 [From Betadine] soap [From Betadine] Allergy Unknown Rash Verified 05/23/22 17:01 Review of Systems Review of Systems: All systems reviewed & are unremarkable except as noted in HPI and below Constitutional: Constitutional: Reports no additional constitutional complaints, Reports anorexia, Reports body ache(s), Denies chills, Denies excessive sweating, Reports fatigue, Denies fever(s), Denies frequent falls, Denies headache(s), Reports malaise and Reports poor appetite Eyes: Eyes: Reports no additional eye complaints, Denies blurry vision, Denies change in vision, Denies irritation, Denies itchy eyes and Denies photophobia ENT: Reports system reviewed and no additional complaints, except as documented, Reports Normal hearing present, Denies change in voice, Denies dysphagia, Denies vertigo, Denies dizziness, Denies ear discharge, Denies headache(s), Denies hearing loss, Denies hoarseness, Denies nasal congestion, Denies neck pain, Denies sinus pressure, Denies sore throat and Denies throat swelling Cardiovascular: Cardiovascular: Reports no additional cardiovascular complaints, Denies chest pain, Denies syncope, Denies rapid heart rate, Denies irregular heart rhythm, Reports leg edema ( Bilateral, symmetric), Denies dyspnea and Denies slow heart rate Respiratory: Respiratory: Reports no additional respiratory complaints, Reports cough, Denies dyspnea, Denies stridor and Denies wheezing Gastrointestinal: Gastrointestinal: Reports no additional gastrointestinal complaints,
[2022-05-23 17:12] LABS: Hematocrit 30.5 % (35.0-42.0); Hemoglobin 9.6 g/dL (11.7-13.8); Mean Corpuscular HGB Conc 31.5 g/dL (32.0-36.0); Mean Corpuscular Hemoglobin 29.1 pg (27.0-31.0); Mean Corpuscular Volume 92.4 fL (78.0-102.0); Mean Platelet Volume 9.3 fl (9.2-11.8); Platelet Count Result 211 K/mm3 (150-420); Red Cell Distribution Width 17.3 % (11.6-14.4); White Blood Count 3.5 K/mm3 (4.8-10.8)
[2022-05-23 17:27] LABS: D Dimer 0.64 mg/L (0.19-0.50)
[2022-05-23 17:33] LABS: Band Neutrophils Percent 0 % (0-6); Basophils Percent Manual 0 % (0-1); Eosinophils Percent Manual 0 % (1-6); Lymphocytes Percent Manual 40 % (18-44); Monocytes Absolute Manual 0.24 K/mm3 (0.1-0.90); Monocytes Percent Manual 7 % (3-9); Neutrophils Absolute Manual 1.85 K/mm3 (1.7-7.2); Neutrophils Percent Manual 53 % (46-73); Platelet Estimate Adequate (Adequate); Total Cells Counted 100
[2022-05-23 17:34] LABS: Alanine Aminotransferase 33 U/L (14-59); Albumin Level 2.9 g/dL (3.4-5.0); Alkaline Phosphatase 137 U/L (46-116); Anion Gap 8 mmol/L (8-16); Aspartate Amino Transferase 41 U/L (15-37); Bilirubin,Total 0.8 mg/dL (0.00-1.00); Blood Urea Nitrogen 47 mg/dL (7-18); Calcium 8.7 mg/dL (8.5-10.1); Carbon Dioxide 29 mmol/L (21-32); Chloride 103 mmol/L (98-108); Estimated Glomerular Filt Rate 15; Glucose 95 mg/dL (70-99); Magnesium 1.6 mg/dL (1.8-2.4); NT Pro B Type Natriuretic Pept 4715 pg/mL (0-450); Osmolality Calculated 302 mOsm/kg (285-295); Potassium 3.9 mmol/L (3.5-5.1); Sodium 140 mmol/L (136-145); Total Protein 6.6 g/dL (6.4-8.2)
[2022-05-23] MEDS: FUROSEMIDE INJ 100 MG/10 ML VIAL 80 MG IV PUSH (17:49)
[2022-05-23 17:50] LABS: Influenza A QL RT-PCR Negative (Negative); Influenza B QL RT-PCR Negative (Negative); RSV RNA, RT-PCR Negative (Negative); SARS-CoV-2 RNA PCR Negative (Negative)
[2022-05-23] MEDS: FUROSEMIDE INJ 40 MG/4 ML VIAL IV PUSH (19:58)
[2022-05-23] MEDS: MAGNESIUM SULF 2 GM/WATER 50ML 2 GM/50 ML BAG IVPB (19:58)
[2022-05-23 21:00] VITALS: BP 122/82; PULSE 66; RESP 20; TEMP 36.7; O2SAT 95
== END 2022-05-23 21:03 | disposition home or self-care (01) ==
PROVIDERS: Emergency Provider Emergency Medicine; PCP Internal Medicine Nephrology
DX: E87.70 Fluid overload, unspecified (principal); N18.4 Chronic kidney disease, stage 4 (severe); I50.9 Heart failure, unspecified; E83.42 Hypomagnesemia; R60.0 Localized edema; C34.90 Malignant neoplasm of unspecified part of unspecified bronchus or lung; I48.91 Unspecified atrial fibrillation; J44.9 Chronic obstructive pulmonary disease, unspecified; D63.8 Anemia in other chronic diseases classified elsewhere; I47.1 Supraventricular tachycardia; M05.89 Other rheumatoid arthritis with rheumatoid factor of multiple sites; K21.9 Gastro-esophageal reflux disease without esophagitis; E78.2 Mixed hyperlipidemia; I73.9 Peripheral vascular disease, unspecified; F32.4 Major depressive disorder, single episode, in partial remission; Z86.718 Personal history of other venous thrombosis and embolism; Z79.51 Long term (current) use of inhaled steroids; Z79.01 Long term (current) use of anticoagulants; Z79.899 Other long term (current) drug therapy; Z87.891 Personal history of nicotine dependence; Z20.822 Contact with and (suspected) exposure to COVID-19
CPT/HCPCS: 36415; 71045; 80053; 83735; 83880; 84484; 85025; 85380; 87637; 93005; 96365; 96375; 96376; 99284; J1940; J3475

== ENCOUNTER 2022-05-28 13:50 | Emergency (ER) | payer MEDICARE, SELFPAY ==
[2022-05-28 13:53] VITALS: BP 130/70; PULSE 63; RESP 20; TEMP 36.2; O2SAT 96
[2022-05-28 15:42] VITALS: BP 114/54; PULSE 60; RESP 16; TEMP 36.3; O2SAT 95
== END 2022-05-28 16:38 | disposition left against medical advice (07) ==
LOC: ANHED 17:07
PROVIDERS: PCP Internal Medicine Nephrology
DX: R94.4 Abnormal results of kidney function studies (principal)
CPT/HCPCS: 99199

== ENCOUNTER 2022-05-31 09:55 | Outpatient (CLI) | payer MEDICARE, SELFPAY ==
[2022-05-31 10:19] LABS: Add Urine Microscopic? YES; Appearance Urine Slightly Cloudy (Clear); Bilirubin Urine Negative (Negative); Blood Urine 3+ (Negative); Color Urine Light Yellow (Yellow); Glucose Urine UA Negative (Negative); Ketones Urine Negative (Negative); Leukocyte Esterase Ur 2+ (Negative); Nitrate Urine Negative (Negative); Protein Urine 2+ (Negative); pH Urine 7.5 (5.0-8.0)
[2022-05-31 10:26] LABS: Bacteria Urine Trace /hpf; RBC Urine >75 /hpf (0-2); Squamous Epithelial Cell Urine Few /hpf (Few); WBC Urine 16-20 /hpf (0-3)
[2022-05-31 10:56] LABS: Albumin Level 3.2 g/dL (3.4-5.0); Anion Gap 7 mmol/L (8-16); Blood Urea Nitrogen 44 mg/dL (7-18); Carbon Dioxide 35 mmol/L (21-32); Chloride 89 mmol/L (98-108); Estimated Glomerular Filt Rate 13; Glucose 96 mg/dL (70-99); Osmolality Calculated 283 mOsm/kg (285-295); Phosphorus 3.2 mg/dL (2.6-4.7); Potassium 3.5 mmol/L (3.5-5.1); Sodium 131 mmol/L (136-145)
== END 2022-05-31 09:56 | disposition home or self-care (01) ==
LOC: CHSLAB 09:57
PROVIDERS: PCP Family Medicine; Visit Provider Internal Medicine Nephrology
DX: N18.4 Chronic kidney disease, stage 4 (severe) (principal)
CPT/HCPCS: 36415; 80069; 81001

== ENCOUNTER 2022-05-31 16:16 | Inpatient (IN) | payer MEDICARE, SELFPAY ==
--- NOTE | ~2022-05-31 | XR_ITS ---
XR chest 2V 06/01/2022 10:04 Indication: Shortness of breath. Port catheter placement. Procedure: AP portable chest Comparison: Comparison to multiple prior studies sequentially, with oldest reviewed study dated 02/24. Findings: Stable bilateral masslike densities in the lung apices, consistent with known malignancy. P ortacatheter tip in the left brachiocephalic vein. Cardiomegaly. Possible small left effusion. There is apical pleural thickening/scarring. Impression: 1: Stable masslike densities of the lung apices, suspicious for metastatic disease with possible radi ation therapy change. Correlate clinically. Reviewed, dictated and finalized at location A. NG MACHINE OPERATOR VERTICAL Impression: 1: Stable masslike densities of the lung apices, suspicious for metastatic dise ase with possible radiation therapy change. Correlate clinically.
[2022-05-31 16:16] VITALS: BP 139/59; PULSE 61; RESP 20; TEMP 36.6; O2SAT 97
--- NOTE | 2022-05-31 16:35 | ED.GENADULT ---
HPI - General Adult General Stated complaint: abnormal labs Related Data Home Medications Medication Instructions Recorded Confirmed fluticasone furoate 100 1 inh QAM 08/22/21 05/29/22 mcg-vilanterol 25 mcg/dose inhalation powder (Breo Ellipta) multivitamin 1 tablet DAILY 02/21/22 05/29/22 rivaroxaban 15 mg tablet 20 mg PO DAILY 02/21/22 05/29/22 amiodarone 200 mg tablet (Pacerone) 200 mg PO DAILY@0800 03/12/22 05/29/22 folic acid 1 mg tablet 1 mg PO DAILY 03/12/22 05/29/22 rosuvastatin 10 mg tablet 10 mg PO DAILY 03/12/22 05/29/22 furosemide 40 mg tablet 80 mg PO DAILY 03/19/22 05/29/22 Allergies Allergy/AdvReac Type Severity Reaction Status Date / Time bacitracin Allergy Mild lips Verified 05/29/22 13:14 [From Neosporin swelling ([id number]-nfa-[id number])] neomycin Allergy Mild lips Verified 05/29/22 13:14 [From Neosporin swelling (fcz-esj-byyov)] polymyxin B Allergy Mild lips Verified 05/29/22 13:14 [From Neosporin swelling ([id number]-qfq-crlwi)] povidone-iodine Allergy Unknown Rash Verified 05/29/22 13:14 [From Betadine] soap [From Betadine] Allergy Unknown Rash Verified 05/29/22 13:14 [facility] Past Medical History Medical History (Updated 05/28/22 @ 14:51 by rAden Hollins MD) Acute maxillary sinusitis, unspecified Acute recurrent maxillary sinusitis Anemia Cancer Centrilobular emphysema Chronic obstructive pulmonary disease with (acute) exacerbation CKD (chronic kidney disease) CKD (chronic kidney disease) stage 3, GFR 30-59 ml/min COPD (chronic obstructive pulmonary disease) COPD mixed type Cough DVT (deep venous thrombosis) Upper extremity GERD (gastroesophageal reflux disease) Herpes zoster without complication History of tobacco abuse Left leg cellulitis Left leg swelling Leukopenia due to antineoplastic chemotherapy Lung cancer MDD (major depressive disorder), single episode, in partial remission Medication management Mixed hyperlipidemia Mixed hyperlipidemia Non-small cell cancer of left lung franchesca Other nonspecific abnormal finding of lung field Personal history of nicotine dependence Postnasal drip Pulmonary nodule PVD (peripheral vascular disease) arterial Doppler 2017 Recurrent ethmoidal sinusitis Rheumatoid arthritis Rheumatoid arthritis involving multiple sites with positive rheumatoid factor Shortness of Breath Surgical History Surgical History H/O: hysterectomy S/P bronchoscopy with biopsy S/P tonsillectomy childhood Family History Family History Sibling Carcinoma of colon Family history of lung cancer Father Family history of lung cancer COPD (chronic obstructive pulmonary disease) Social History Social History Social History: The patient is . She lives on her own. 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 She has 2 children. She has No poa. She is working on having her niece as the power tax associate attorney they have the paperwork but have not completed as of yet. She denies any marijuana alcohol or illicit drugs. Code status DNR Smoking packs per day: 1 Smoking cigarettes per day: 20.0 Years smoked: 30 Smoking pack-years: 30.00 Smoking status: Former smoker Tobacco type: cigarettes Second hand tobacco smoke exposure: Yes Smoking end date: 08/10/97 Additional smoking assessment comments: quit around 1997, smoked 1ppd for 30 years Alcohol intake: never Alcohol use details: has not had alcohol for many years Substance use: never Substance use type: does not use Additional living arrangements comments: Pt is living with her sister. Gender identity (if verbalized by the patient): Female Sexual Orientation (if Verbalized by the Patient): Straight or Heterosexual Spiritual care concerns: No Discharge Plan Discharge Prescriptions: No Action aaron
--- NOTE | 2022-05-31 17:05 | ED.GENADULT ---
HPI - General Adult General Chief complaint: Recheck/Abnormal Lab/Rx Stated complaint: abnormal labs Time Seen by Provider: 05/31/22 16:46 History of Present Illness HPI narrative: Skylar is a 76F with a PMH of metastatic lung cancer, RA, COPD, atrial flutter, DVT and stage 4 CKD that was referred to the ED by her primary, Dr. Hill, for labs that were drawn and showed an KHANH and a UTI. She admits to being weak and having some blood in her urine. Of note she had been having trouble with fluid retention and she was placed on metolazone in addition to lasix. Despite being on these water pills she has not had an appetite and has had poor PO intake. She tried to go to [place] ED earlier in the week but could not get in because of the wait. Related Data Home Medications Medication Instructions Recorded Confirmed fluticasone furoate 100 1 inh QAM 08/22/21 05/31/22 mcg-vilanterol 25 mcg/dose inhalation powder (Breo Ellipta) multivitamin 1 tablet DAILY 02/21/22 05/31/22 rivaroxaban 15 mg tablet 20 mg PO DAILY 02/21/22 05/31/22 amiodarone 200 mg tablet (Pacerone) 200 mg PO DAILY@0800 03/12/22 05/31/22 folic acid 1 mg tablet 1 mg PO DAILY 03/12/22 05/31/22 rosuvastatin 10 mg tablet 10 mg PO DAILY 03/12/22 05/31/22 furosemide 40 mg tablet 80 mg PO BID 03/19/22 05/31/22 Allergies Allergy/AdvReac Type Severity Reaction Status Date / Time bacitracin Allergy Mild lips Verified 05/29/22 13:14 [From Neosporin swelling ([id number])] neomycin Allergy Mild lips Verified 05/29/22 13:14 [From Neosporin swelling (edg-dbt-ddnxs)] polymyxin B Allergy Mild lips Verified 05/29/22 13:14 [From Neosporin swelling (eez-yyl-sirrm)] povidone-iodine Allergy Unknown Rash Verified 05/29/22 13:14 [From Betadine] soap [From Betadine] Allergy Unknown Rash Verified 05/29/22 13:14 Review of Systems Review of Systems: All systems reviewed & are unremarkable except as noted in HPI and below PMFSH Past Medical History Medical History Acute maxillary sinusitis, unspecified Acute recurrent maxillary sinusitis Anemia Cancer Centrilobular emphysema Chronic obstructive pulmonary disease with (acute) exacerbation CKD (chronic kidney disease) CKD (chronic kidney disease) stage 3, GFR 30-59 ml/min COPD (chronic obstructive pulmonary disease) COPD mixed type Cough DVT (deep venous thrombosis) Upper extremity GERD (gastroesophageal reflux disease) Herpes zoster without complication History of tobacco abuse Left leg cellulitis Left leg swelling Leukopenia due to antineoplastic chemotherapy Lung cancer MDD (major depressive disorder), single episode, in partial remission Medication management Mixed hyperlipidemia Mixed hyperlipidemia Non-small cell cancer of left lung franchesca Other nonspecific abnormal finding of lung field Personal history of nicotine dependence Postnasal drip Pulmonary nodule PVD (peripheral vascular disease) arterial Doppler 2017 Recurrent ethmoidal sinusitis Rheumatoid arthritis Rheumatoid arthritis involving multiple sites with positive rheumatoid factor Shortness of Breath Surgical History Surgical History H/O: hysterectomy S/P bronchoscopy with biopsy S/P tonsillectomy childhood Family History Family History Sibling Carcinoma of colon Family history of lung cancer Father Family history of lung cancer COPD (chronic obstructive pulmonary disease) Social History Social History Social History: The patient is . She lives on her own. 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 She has 2 children. She has No poa. She is working on having her niece as the power health care attorney they have the paperwork but have not completed as of yet. She denies any marijuana alcohol o
[2022-05-31 17:35] VITALS: BP 100/48; PULSE 59; RESP 20; TEMP 36.6; O2SAT 97
[2022-05-31] MEDS: SODIUM CHLORIDE 0.9% IV 1,000 ML 100 ML IV CONT (17:56)
--- NOTE | 2022-05-31 18:25 | ADMGEN ---
This patient, Skylar Aguilera, was admitted to 2nd Floor Room 205-1. Patient/family oriented to hospital policies and general routines including ID bracelet, bed and alarms, visiting hours, pain management, procedures, bathroom and other care routines, personal items, smoking policy, room service/diet, and visiting hours. Information on how to activate the Rapid Response Team has been discussed. Patient/Family are encouraged to report perceived risks to care and to ask questions if they do not understand what they are told or what they should do.
[2022-05-31 18:31] VITALS: BMI 25.6
[2022-05-31 21:03] VITALS: PULSE 52
[2022-05-31 23:53] VITALS: BP 99/47; PULSE 52; RESP 16; TEMP 36.3; O2SAT 96
--- NOTE | 2022-06-01 04:00 | PC.NURSE ---
Sodium Chloride infusion ended 06/01/22 @ 0400.
[2022-06-01 05:29] LABS: Hematocrit 30.7 % (35.0-42.0); Hemoglobin 9.8 g/dL (11.7-13.8); Mean Corpuscular HGB Conc 31.9 g/dL (32.0-36.0); Mean Corpuscular Hemoglobin 28.7 pg (27.0-31.0); Mean Corpuscular Volume 89.8 fL (78.0-102.0); Mean Platelet Volume 9.8 fl (9.2-11.8); Platelet Count Result 187 K/mm3 (150-420); Red Blood Count 3.42 M/mm3 (4.20-5.40)
[2022-06-01] MEDS: SALMET XINAFT/FLUTIC PROPIN 250 MCG/50 MCG INH CAP 1 PUFF INHALATION ×2 (05:40→17:10)
[2022-06-01 05:41] LABS: Anion Gap 8 mmol/L (8-16); Blood Urea Nitrogen 45 mg/dL (7-18); Calcium 8.8 mg/dL (8.5-10.1); Carbon Dioxide 31 mmol/L (21-32); Chloride 92 mmol/L (98-108); Estimated CRCL calculation 13 ml/min; Estimated Glomerular Filt Rate 14; Glucose 90 mg/dL (70-99); Osmolality Calculated 283 mOsm/kg (285-295); Potassium 3.1 mmol/L (3.5-5.1); Sodium 131 mmol/L (136-145)
--- NOTE | 2022-06-01 05:43 | PC.NURSE ---
Lab called to report critical WBC of 20.4
[2022-06-01 05:44] LABS: White Blood Count 20.4 K/mm3 (4.8-10.8)
[2022-06-01 05:46] LABS: Basophils Percent Manual 0 % (0-1); Eosinophils Percent Manual 0 % (1-6); Lymphocytes Absolute Manual 1.63 K/mm3 (1.1-4.5); Lymphocytes Percent Manual 8 % (18-44); Monocytes Absolute Manual 0.61 K/mm3 (0.1-0.90); Monocytes Percent Manual 3 % (3-9); Neutrophils Percent Manual 89 % (46-73); Platelet Estimate Adequate (Adequate)
--- NOTE | 2022-06-01 06:14 | PC.NURSE ---
Nain Liang NP, notified of pt's critical WBC of 20.4; No new orders at this time.
[2022-06-01 08:00] VITALS: BP 115/46; PULSE 62; RESP 16; TEMP 36.7; O2SAT 93
[2022-06-01] MEDS: FUROSEMIDE 40 MG TABLET 80 MG PO ×2 (08:49→17:11)
[2022-06-01 08:50] VITALS: PULSE 62
[2022-06-01] MEDS: MULTIVITAMINS THERAPEUTIC TAB (*BKC) 1 TABLET BY MOUTH (08:50)
[2022-06-01] MEDS: AMIODARONE HCL 200 MG TABLET PO (08:50)
[2022-06-01] MEDS: RIVAROXABAN 10 MG TABLET 20 MG PO (08:50)
[2022-06-01 08:51] VITALS: PULSE 62
[2022-06-01] MEDS: METOPROLOL TARTRATE 50 MG TAB 100 MG PO ×2 (08:51→21:23)
[2022-06-01] MEDS: HYDROXYCHLOROQUINE SULFATE 200 MG TABLET 400 MG PO (08:52)
[2022-06-01] MEDS: ROSUVASTATIN 10 MG TABLET PO (08:52)
[2022-06-01] MEDS: FOLIC ACID 1 MG TABLET PO (08:53)
[2022-06-01] MEDS: SODIUM CHLORIDE 0.9% IV 1,000 ML 125 ML IV CONT ×2 (09:24→18:33)
[2022-06-01] MEDS: POTASSIUM CHLORIDE 20 MEQ TABLET PO (09:25)
--- NOTE | 2022-06-01 11:53 | PM.IMHP ---
H&P: HPI History of Present Illness Date/Time: 06/01/22 11:53 Chief Complaint: Abnormal Electrolytes/LABs Acute on chronic renal failure Narrative: This is a 76 year old female that came in to the emergency room with outlaying abnormal electrolytes. Patient has been to the emergency room initally at [facility] and they left prior to being seen. Patient niece is assisting with her care. Patient has a extensive cancer diagnosis with mets and her renal function is worsening patient has been found to have some congestive heart failure although she josé luis any increased shortness of breath. Patient has oxygen at home that she generally does not use. Patient cr 3.36 on admission and she is refusing dialysis if she should get to where she would need it. According to family she is need a renal ultrasound per her hand cooper helper and a echo. Patient is also being treated at this time for a UTI. She is afebrile and eating and drinking. patient states she does not feel well. Review of Systems Review of Systems: swelling of legs All systems reviewed & are unremarkable except as noted in HPI and below PMFSH Past Medical History Medical History (Updated 06/08/22 @ 04:43 by Norah Solano MD) Acute recurrent maxillary sinusitis KHANH (acute kidney injury) Anemia in CKD (chronic kidney disease) Atrial flutter Benign essential HTN Centrilobular emphysema CHF (congestive heart failure) Chronic obstructive pulmonary disease with (acute) exacerbation Chronic pain CKD (chronic kidney disease) COPD (chronic obstructive pulmonary disease) DVT (deep venous thrombosis) Upper extremity GERD (gastroesophageal reflux disease) Herpes zoster without complication History of tobacco abuse Laryngotracheitis Left leg cellulitis Leukopenia due to antineoplastic chemotherapy Lung cancer MDD (major depressive disorder), single episode, in partial remission Mixed hyperlipidemia Non-small cell cancer of left lung franchesca PAF (paroxysmal atrial fibrillation) Prevention of chemotherapy-induced neutropenia PVD (peripheral vascular disease) arterial Doppler 2018 Pyuria 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 She lives on her own. 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 She has 2 children. She has No poa. She is working on having her niece as the power civil attorney they have the paperwork but have not completed as of yet. She denies any marijuana alcohol or illicit drugs. Code status DNR Smoking packs per day: 1 Smoking cigarettes per day: 20.0 Years smoked: 30 Smoking pack-years: 30.00 Smoking status: Former smoker Tobacco type: cigarettes Second hand tobacco smoke exposure: Yes Smoking end date: 08/10/97 Additional smoking assessment comments: quit around 1997, smoked 1ppd for 30 years Alcohol intake: never Alcohol use details: has not had alcohol for many years Substance use: never Substance use type: does not use Lack of Transportation: No Lack of Food: Never True Current Housing: I Have Housing Concerned About Future Housing: No Difficulty Paying Gas/Electric Bills: No Difficulty Paying for Meds: No Currently Unemployed: No Education: High School Diploma/GED Difficulty w/ Childcare or Family Care: No Living arrangements: with family Additional living arrangements comments: Pt is living with her sister. Occupation/
[2022-06-01] MEDS: LOPERAMIDE HCL 2 MG CAPSULE PO (15:44)
[2022-06-01 16:00] VITALS: BP 146/58; PULSE 63; RESP 16; TEMP 36.2; O2SAT 96
[2022-06-01 21:23] VITALS: PULSE 61
[2022-06-01] MEDS: traZODone HCL 50 MG TABLET PO (21:26)
[2022-06-02] VITALS: BP 140/53; PULSE 61; RESP 16; TEMP 36.6; O2SAT 96
[2022-06-02] MEDS: SODIUM CHLORIDE 0.9% IV 1,000 ML 125 ML IV CONT (03:45)
[2022-06-02 05:07] LABS: Hematocrit 30.2 % (35.0-42.0); Hemoglobin 9.6 g/dL (11.7-13.8); Mean Corpuscular HGB Conc 31.8 g/dL (32.0-36.0); Mean Corpuscular Hemoglobin 28.7 pg (27.0-31.0); Mean Corpuscular Volume 90.4 fL (78.0-102.0); Mean Platelet Volume 9.5 fl (9.2-11.8); Platelet Count Result 182 K/mm3 (150-420); Red Blood Count 3.34 M/mm3 (4.20-5.40); Red Cell Distribution Width 16.9 % (11.6-14.4)
--- NOTE | 2022-06-02 05:13 | PC.NURSE ---
Lab called to report a critical WBC of 22.5.
[2022-06-02 05:14] LABS: White Blood Count 22.5 K/mm3 (4.8-10.8)
[2022-06-02 05:16] LABS: Anion Gap 8 mmol/L (8-16); Blood Urea Nitrogen 39 mg/dL (7-18); Calcium 8.7 mg/dL (8.5-10.1); Carbon Dioxide 29 mmol/L (21-32); Chloride 94 mmol/L (98-108); Estimated CRCL calculation 15 ml/min; Estimated Glomerular Filt Rate 16; Glucose 90 mg/dL (70-99); Osmolality Calculated 281 mOsm/kg (285-295); Sodium 131 mmol/L (136-145)
--- NOTE | 2022-06-02 06:14 | PC.NURSE ---
Message left on voice mail for Nain Liang NP regarding pt's WBC of 22.5
[2022-06-02] MEDS: SALMET XINAFT/FLUTIC PROPIN 250 MCG/50 MCG INH CAP 1 PUFF INHALATION (06:32)
--- NOTE | 2022-06-02 06:42 | PC.NURSE ---
Nain Liang NP, returned phone message; No new orders at this time.
[2022-06-02 08:00] VITALS: BP 124/74; PULSE 78; RESP 18; TEMP 36.6; O2SAT 96
[2022-06-02 08:54] VITALS: PULSE 84
[2022-06-02] MEDS: AMIODARONE HCL 200 MG TABLET PO (08:54)
[2022-06-02] MEDS: POTASSIUM CHLORIDE 20 MEQ TABLET PO (08:54)
[2022-06-02 08:55] VITALS: PULSE 84
[2022-06-02] MEDS: FUROSEMIDE 40 MG TABLET 80 MG PO (08:55)
[2022-06-02] MEDS: FOLIC ACID 1 MG TABLET PO (08:55)
[2022-06-02] MEDS: ROSUVASTATIN 10 MG TABLET PO (08:55)
[2022-06-02] MEDS: METOPROLOL TARTRATE 50 MG TAB 100 MG PO (08:55)
[2022-06-02] MEDS: MULTIVITAMINS THERAPEUTIC TAB (*BKC) 1 TABLET BY MOUTH (08:55)
[2022-06-02] MEDS: HYDROXYCHLOROQUINE SULFATE 200 MG TABLET 400 MG PO (08:56)
[2022-06-02] MEDS: RIVAROXABAN 10 MG TABLET 20 MG PO (08:56)
--- NOTE | 2022-06-02 10:59 | PM.DS ---
DS: Admitting Diagnosis Discharge Date 06/02/2022 Admitting Diagnosis Electrolyte balance, Kidney failure DS: Discharge Diagnosis Discharge Diagnosis (1) KHANH (acute kidney injury): Code(s): N17.9 - Acute kidney failure, unspecified Status: Acute (2) Chronic kidney disease, stage 4 (severe): Code(s): N18.4 - Chronic kidney disease, stage 4 (severe) Status: Acute (3) Metastatic lung cancer (metastasis from lung to other site): Code(s): C34.90 - Malignant neoplasm of unspecified part of unspecified bronchus or lung Status: Acute (4) Physical debility: Code(s): R53.81 - Other malaise Status: Acute (5) Dehydration: Code(s): E86.0 - Dehydration Status: Acute (6) Edema leg: Code(s): R60.0 - Localized edema Status: Acute (7) Leucocytosis: Code(s): D72.829 - Elevated white blood cell count, unspecified Status: Acute Assessment and Plan: Chest xray negative UA culture sent on Cipro for uti prior to arrival afebrile on RA medication Plaquinil which can play a role Had Chemo immunotherapy last week which can cause rise days Blood cultures drawn will see if anything grows. DS: Summary Hospital Course Reason for hospitalization: Abnormal labs , acute on chronic kidney failure, hyponatremia Hospital Course: this is a 76-year-old female was admitted to the hospital due to abnormal labs drawn at an outside facility. Patient has a past medical history of lung cancer with Mets that is stable at the time and she is receiving immunotherapy. Patient has stage 4 kidney disease and her creatinine continues to elevate on admission creatinine was 3.36 on discharge is 2.92 patient averages around 2.0. Patient's white blood count continues to elevate all sources of infection have been considered chest x-ray shows the nodules from the cancer but no pneumonia or infectious process noted. Urine patient is currently being treated with the for UTI of Cipro urine culture has been sent off no growth she has remained afebrile eating and drinking and does not feel sick. Blood cultures have been drawn prior to discharge patient is anxious to go home we have given IV fluids, IV antibiotics and oral potassium. Patient is hyponatremic but stable I have addressed with the patient and her niece about the white blood count the sources of infection as well as schedule her outpatient renal ultrasound and echocardiogram as she has appointment with the caser up on Friday and the renal doctor on Friday. Family has expressed extreme frustration with the medical system and not being able to get a hold of people attempted to reassure that when doing everything that we can and explained the process that there may be delay at times very pleasant family and patient. Patient wanted to go home as she is not feeling sick at this time per patient . I did discuss with patient the possiblity of eventually needed dialysis in which she has declined at this time. Time Spent with Patient Time attestation: Total time spent providing and/or coordinating discharge services: Exam Narrative: GENERAL:Well-appearing, well-nourished, and in no acute distress. HEAD:Normocephalic, atraumatic. EYES: PERRLA . ENT: Nares clear, no rhinorrhea or epistaxis. Mucous membranes moist. CHEST: Clear and diminished lower lobe auscultation. No respiratory distress. HEART: irregular Regular rate and rhythm. Normal peripheral pulses. ABDOMEN: Soft, nontender, nondistended, normal active bowel sounds. EXTREMITIES: Normal range of motion. 1+edema. SKIN: Warm, dry, no rash. NEURO: No focal deficits. Alert and oriented x3. DS: Data Data Completed and Pending Labs on day of discharge: Labs from last 24 hours 06/02/22 06/02/22 04:59 04:59 WBC 22.5 H* RBC 3.34 L Hgb 9.6 L Hct 30.2 L MCV 90.4 MCH 28.7 MCHC 31.8 L RDW 16.9 H Plt Count 182 MPV 9.5 Sodium 131 L Pot
--- NOTE | 2022-06-02 15:05 | PC.NURSE ---
1500 patient dc to niece's auto per wc. dc instructions went over and vocalize an understanding. encouraged to call friday to set up uls, echo, and follow up doctor appointment. explained meds where sent to her pharm in [place].
--- NOTE | 2022-06-05 14:32 | ED.GENADULT ---
HPI - General Adult General Chief complaint: Recheck/Abnormal Lab/Rx Stated complaint: abnormal labs Time Seen by Provider: 05/31/22 16:46 History of Present Illness HPI narrative: Skylar is a 76F with a PMH of RA, non-small cell lung cancer w/ mets, HTN, chronic pain, SVT and CKD that was referred to the ED by her PCP. She was recently admitted for an KHANH as she over diuresed. She was given fluids and discharged. She had her hospital f/u blood work which showed even worse kidney function. She has still been on the lasix but has still gained 10 lbs in the few days. She denies CP, dyspnea, lightheadedness, diarrhea, fevers, and chills. Related Data Home Medications Medication Instructions Recorded Confirmed fluticasone furoate 100 1 inh QAM 08/22/21 06/05/22 mcg-vilanterol 25 mcg/dose inhalation powder (Breo Ellipta) multivitamin 1 tablet DAILY 02/21/22 06/05/22 rivaroxaban 15 mg tablet 20 mg PO DAILY 02/21/22 06/05/22 amiodarone 200 mg tablet (Pacerone) 200 mg PO DAILY@0800 03/12/22 06/05/22 folic acid 1 mg tablet 1 mg PO DAILY 03/12/22 06/05/22 rosuvastatin 10 mg tablet 10 mg PO DAILY 03/12/22 06/05/22 furosemide 40 mg tablet 80 mg PO BID 03/19/22 06/05/22 Allergies Allergy/AdvReac Type Severity Reaction Status Date / Time bacitracin Allergy Mild lips Verified 06/05/22 14:26 [From Neosporin swelling ([id number])] neomycin Allergy Mild lips Verified 06/05/22 14:26 [From Neosporin swelling ([id number]-[id number])] polymyxin B Allergy Mild lips Verified 06/05/22 14:26 [From Neosporin swelling ([id number])] povidone-iodine Allergy Unknown Rash Verified 06/05/22 14:26 [From Betadine] soap [From Betadine] Allergy Unknown Rash Verified 06/05/22 14:26 Review of Systems Review of Systems: All systems reviewed & are unremarkable except as noted in HPI and below PMFSH Past Medical History Medical History Acute maxillary sinusitis, unspecified Acute recurrent maxillary sinusitis Anemia Cancer Centrilobular emphysema Chronic obstructive pulmonary disease with (acute) exacerbation CKD (chronic kidney disease) CKD (chronic kidney disease) stage 3, GFR 30-59 ml/min COPD (chronic obstructive pulmonary disease) COPD mixed type Cough DVT (deep venous thrombosis) Upper extremity GERD (gastroesophageal reflux disease) Herpes zoster without complication History of tobacco abuse Left leg cellulitis Left leg swelling Leukopenia due to antineoplastic chemotherapy Lung cancer MDD (major depressive disorder), single episode, in partial remission Medication management Mixed hyperlipidemia Mixed hyperlipidemia Non-small cell cancer of left lung franchesca Other nonspecific abnormal finding of lung field Personal history of nicotine dependence Postnasal drip Pulmonary nodule PVD (peripheral vascular disease) arterial Doppler 2017 Recurrent ethmoidal sinusitis Rheumatoid arthritis Rheumatoid arthritis involving multiple sites with positive rheumatoid factor Shortness of Breath Surgical History Surgical History H/O: hysterectomy S/P bronchoscopy with biopsy S/P tonsillectomy childhood Family History Family History Sibling Carcinoma of colon Family history of lung cancer Father Family history of lung cancer COPD (chronic obstructive pulmonary disease) Social History Social History Social History: The patient is . She lives on her own. 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 She has 2 children. She has No poa. She is working on having her niece as the power immigration attorney they have the paperwork but have not completed as of yet. She denies any marijuana alcohol or illicit drugs. Code status DNR Smoking packs per day: 1 Smoking cigarettes per day: 20.0 Yea
--- NOTE | 2022-06-06 11:23 | PC.NURSE ---
Unable to contact.
== END 2022-06-02 15:00 | disposition home or self-care (01) | DRG 683 ==
LOC: CHSED 17:22 → CHS2ND 17:42
PROVIDERS: Nurse Practitioner Family; Admitting Provider Internal Medicine; Emergency Provider Family Medicine; PCP Family Medicine; Visit Provider Internal Medicine
DX: N17.9 Acute kidney failure, unspecified (principal); C34.90 Malignant neoplasm of unspecified part of unspecified bronchus or lung; N39.0 Urinary tract infection, site not specified; C79.9 Secondary malignant neoplasm of unspecified site; E87.1 Hypo-osmolality and hyponatremia; E86.0 Dehydration; N18.4 Chronic kidney disease, stage 4 (severe); D72.829 Elevated white blood cell count, unspecified; J43.2 Centrilobular emphysema; E78.2 Mixed hyperlipidemia; I73.9 Peripheral vascular disease, unspecified; M05.79 Rheumatoid arthritis with rheumatoid factor of multiple sites without organ or systems involvement; K21.9 Gastro-esophageal reflux disease without esophagitis; F32.9 Major depressive disorder, single episode, unspecified; Z86.718 Personal history of other venous thrombosis and embolism; Z79.01 Long term (current) use of anticoagulants; Z87.891 Personal history of nicotine dependence
CPT/HCPCS: 36415; 71046; 80048; 80069; 81001; 85025; 85027; 87040; 87086; 87088; 96365; 99285; A9270; G0378; J0696; J7030

== ENCOUNTER 2022-06-04 13:33 | Outpatient (CLI) | payer MEDICARE, SELFPAY ==
--- NOTE | ~2022-06-04 | US_ITS ---
EXAMINATION: US retroperitoneal comp DATE: 06/04/2022 14:17 INDICATION: Chronic kidney disease TECHNIQUE: Multiple grayscale and Doppler ultrasound images of the kidneys were obtained. COMPARISON: 11/16/2020. FINDINGS: The right kidney measures 9.8 x 4.3 x 6 4.6 cm. The left kidney measures 9.9 x 3.7 x 4.2 cm . The kidneys demonstrate normal parenchymal echogenicity. There is no hydronephrosis. The bladder is normal. IMPRESSION: 1. Normal kidneys without hydronephrosis. Reviewed, dictated and finalized at location [facility]
== END 2022-06-04 13:34 | disposition home or self-care (01) ==
LOC: CHSIMG 13:35
PROVIDERS: PCP Family Medicine; Visit Provider Nurse Practitioner Family
DX: N18.4 Chronic kidney disease, stage 4 (severe) (principal); N39.0 Urinary tract infection, site not specified; N17.9 Acute kidney failure, unspecified
CPT/HCPCS: 76770

== ENCOUNTER 2022-06-05 11:14 | Outpatient (CLI) | payer MEDICARE, SELFPAY ==
[2022-06-05 11:28] LABS: Hematocrit 33.6 % (35.0-42.0); Hemoglobin 10.7 g/dL (11.7-13.8); Mean Corpuscular HGB Conc 31.8 g/dL (32.0-36.0); Mean Corpuscular Hemoglobin 28.5 pg (27.0-31.0); Mean Corpuscular Volume 89.6 fL (78.0-102.0); Mean Platelet Volume 9.4 fl (9.2-11.8); Platelet Count Result 245 K/mm3 (150-420); Red Blood Count 3.75 M/mm3 (4.20-5.40); Red Cell Distribution Width 16.6 % (11.6-14.4)
[2022-06-05 11:34] LABS: White Blood Count 31.6 K/mm3 (4.8-10.8)
[2022-06-05 12:11] LABS: Alanine Aminotransferase 52 U/L (14-59); Albumin Level 3.2 g/dL (3.4-5.0); Alkaline Phosphatase 201 U/L (46-116); Anion Gap 13 mmol/L (8-16); Aspartate Amino Transferase 43 U/L (15-37); Bilirubin,Total 0.8 mg/dL (0.00-1.00); Blood Urea Nitrogen 54 mg/dL (7-18); Calcium 8.9 mg/dL (8.5-10.1); Carbon Dioxide 26 mmol/L (21-32); Chloride 89 mmol/L (98-108); Estimated Glomerular Filt Rate 10; Glucose 99 mg/dL (70-99); Osmolality Calculated 280 mOsm/kg (285-295); Potassium 3.7 mmol/L (3.5-5.1); Sodium 128 mmol/L (136-145); Total Protein 6.7 g/dL (6.4-8.2)
== END 2022-06-05 11:15 | disposition home or self-care (01) ==
LOC: CHSLAB 11:16
PROVIDERS: PCP Family Medicine; Visit Provider Nurse Practitioner Family
DX: C34.90 Malignant neoplasm of unspecified part of unspecified bronchus or lung (principal); N18.4 Chronic kidney disease, stage 4 (severe); I48.92 Unspecified atrial flutter; E87.1 Hypo-osmolality and hyponatremia; N17.9 Acute kidney failure, unspecified
CPT/HCPCS: 36415; 80053; 85027

== ENCOUNTER 2022-06-05 14:17 | Emergency (ER) | payer MEDICARE, SELFPAY ==
[2022-06-05 14:20] VITALS: BP 108/65; PULSE 58; RESP 18; TEMP 35.8; O2SAT 96
--- NOTE | 2022-06-05 14:32 | ED.GENADULT ---
HPI - General Adult General Chief complaint: Recheck/Abnormal Lab/Rx Stated complaint: abnormal labs History of Present Illness HPI narrative: Skylar is a 76F with a PMH of RA, non-small cell lung cancer w/ mets, HTN, chronic pain, SVT and CKD that was referred to the ED by her PCP. She was recently admitted for an KHANH as she over diuresed. She was given fluids and discharged. She had her hospital f/u blood work which showed even worse kidney function. She has still been on the lasix but has still gained 10 lbs in the few days. She denies CP, dyspnea, lightheadedness, diarrhea, fevers, and chills. Related Data Home Medications Medication Instructions Recorded Confirmed multivitamin 1 tablet DAILY 02/21/22 06/14/22 rivaroxaban 15 mg tablet 20 mg PO DAILY 02/21/22 06/14/22 amiodarone 200 mg tablet (Pacerone) 200 mg PO DAILY@0800 03/12/22 06/14/22 folic acid 1 mg tablet 1 mg PO DAILY 03/12/22 06/14/22 rosuvastatin 10 mg tablet 10 mg PO DAILY 03/12/22 06/14/22 Allergies Allergy/AdvReac Type Severity Reaction Status Date / Time bacitracin Allergy Mild lips Verified 06/14/22 14:22 [From Neosporin swelling ([id number])] neomycin Allergy Mild lips Verified 06/14/22 14:22 [From Neosporin swelling ([id number])] polymyxin B Allergy Mild lips Verified 06/14/22 14:22 [From Neosporin swelling ([id number])] povidone-iodine Allergy Unknown Rash Verified 06/14/22 14:22 [From Betadine] soap [From Betadine] Allergy Unknown Rash Verified 06/14/22 14:22 Review of Systems Review of Systems: All systems reviewed & are unremarkable except as noted in HPI and below PMFSH Past Medical History Medical History Acute recurrent maxillary sinusitis KHANH (acute kidney injury) Anemia in CKD (chronic kidney disease) Atrial flutter Benign essential HTN Centrilobular emphysema CHF (congestive heart failure) Chronic obstructive pulmonary disease with (acute) exacerbation Chronic pain CKD (chronic kidney disease) COPD (chronic obstructive pulmonary disease) DVT (deep venous thrombosis) Upper extremity GERD (gastroesophageal reflux disease) Herpes zoster without complication History of tobacco abuse Laryngotracheitis Left leg cellulitis Leukopenia due to antineoplastic chemotherapy Lung cancer MDD (major depressive disorder), single episode, in partial remission Mixed hyperlipidemia Non-small cell cancer of left lung franchesca PAF (paroxysmal atrial fibrillation) Prevention of chemotherapy-induced neutropenia PVD (peripheral vascular disease) arterial Doppler 2018 Pyuria 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 She lives on her own. 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 She has 2 children. She has No poa. She is working on having her niece as the power associate attorney they have the paperwork but have not completed as of yet. She denies any marijuana alcohol or illicit drugs. Code status DNR Smoking packs per day: 1 Smoking cigarettes per day: 20.0 Years smoked: 30 Smoking pack-years: 30.00 Smoking status: Former smoker Tobacco type: cigarettes Second hand tobacco smoke exposure: Yes Smoking end date: 08/10/97 Additional smoking assessment comments: quit around 1997, smoked 1ppd for 30 years Alcohol intake: never Alcohol use details: has not had alcoho
--- NOTE | 2022-06-05 14:33 | PC.NURSE ---
Called [facility] twice to talk to supervisor customer records division about transferring pt for kidney failure, no answer, left a message.
--- NOTE | 2022-06-05 14:36 | PC.NURSE ---
Pt weak and complaining of fatigue
--- NOTE | 2022-06-05 14:39 | PC.NURSE ---
Mauro from [facility] called back and given pt's info and diagnosis, waiting for possible admit.
--- NOTE | 2022-06-05 14:40 | PC.NURSE ---
Nephrology wanted pt transferred last week to [facility], pt's status has not changed, needs care for kidney failure.
--- NOTE | 2022-06-05 15:05 | PC.NURSE ---
[facility] called back and pt accepted by hospitalist for inpatient admit.
[2022-06-05 15:18] VITALS: BP 110/79; PULSE 57; RESP 18; TEMP 36.4; O2SAT 94
--- NOTE | 2022-06-05 15:23 | PC.NURSE ---
Mauro the admissions supervisor called back from [facility], pt was accepted and will be admitted to room 251.
--- NOTE | 2022-06-05 15:32 | PC.NURSE ---
Report given to Jama at [facility].
== END 2022-06-05 15:45 | disposition short-term general hospital (02) ==
PROVIDERS: Emergency Provider Family Medicine; PCP Family Medicine
DX: N17.9 Acute kidney failure, unspecified (principal); I12.9 Hypertensive chronic kidney disease with stage 1 through stage 4 chronic kidney disease, or unspecified chronic kidney disease; N18.30 Chronic kidney disease, stage 3 unspecified; J43.2 Centrilobular emphysema; C34.92 Malignant neoplasm of unspecified part of left bronchus or lung; C79.9 Secondary malignant neoplasm of unspecified site; E78.2 Mixed hyperlipidemia; M05.89 Other rheumatoid arthritis with rheumatoid factor of multiple sites; D64.9 Anemia, unspecified; K21.9 Gastro-esophageal reflux disease without esophagitis; F32.4 Major depressive disorder, single episode, in partial remission; I73.9 Peripheral vascular disease, unspecified; Z79.01 Long term (current) use of anticoagulants; Z86.718 Personal history of other venous thrombosis and embolism; Z87.891 Personal history of nicotine dependence
CPT/HCPCS: 36415; 80053; 85027; 99285

== ENCOUNTER 2022-06-05 16:45 | Inpatient (IN) | payer MEDICARE, SELFPAY ==
--- NOTE | ~2022-06-05 | XR_ITS ---
EXAMINATION: XR chest 1V portable DATE: 06/06/2022 07:56 INDICATION: Leukocytosis. TECHNIQUE: A single frontal view of the chest was obtained. COMPARISON: Chest 2 views 06/01/2022, chest CT 05/15/2022 FINDINGS: There are chronic airspace opacities in the upper lobes. No pleural effusion or pneumothora x. The heart size is normal. There is a left subclavian port with tip in superior vena cava. There is displacement of the catheter between the clavicle and first rib. IMPRESSION: 1. Stable airspace opacities in the upper lobes, likely a combination of granulomatous disease and ra diation pneumonitis. Reviewed, dictated and finalized at location [facility] IMPRESSION: 1. Stable airspace opacities in the upper lobes, likely a combination of granul omatous disease and radiation pneumonitis.
--- NOTE | 2022-06-05 17:00 | ADMGEN ---
This patient, Skylar Aguilera, was admitted to 2 Medical Room 251-. Patient/family oriented to hospital policies and general routines including ID bracelet, bed and alarms, visiting hours, pain management, procedures, bathroom and other care routines, personal items, smoking policy, room service/diet, and visiting hours. Information on how to activate the Rapid Response Team has been discussed. Patient/Family are encouraged to report perceived risks to care and to ask questions if they do not understand what they are told or what they should do.
[2022-06-05 17:27] VITALS: BP 119/53; PULSE 64; RESP 16; TEMP 36.6; O2SAT 97
[2022-06-05 18:03] VITALS: BMI 26.6
--- NOTE | 2022-06-05 18:32 | PC.NURSE ---
Notified Loren Ta of the patient's status.
[2022-06-05 19:27] VITALS: BP 100/52; PULSE 57; RESP 17; TEMP 36.3; O2SAT 97
--- NOTE | 2022-06-05 20:22 | PM.IMHP ---
H&P: HPI History of Present Illness Date/Time: 06/05/22 20:22 Chief Complaint: Abnormal lab work Narrative: This is a 71-year-old female with past medical history significant for bronchogenic carcinoma, patient does not desire to pursue invasive treatment for these. Just recently discharged from [facility] which he was treated for congestive heart failure exacerbation patient discharged home and comes back with worsening renal function after lab work showed that creatinine has increased to 4.34. Patient is been admitted for further evaluation management and treatment. Review of Systems Review of Systems: Abnormal lab work, worsening creatinine values Constitutional: Constitutional: Denies chills, Denies fatigue, Denies fever(s), Denies malaise, Denies night sweats, Reports poor appetite and Denies weakness Eyes: Eyes: Denies change in vision ENT: Denies dysphagia and Denies odynophagia Cardiovascular: Cardiovascular: Denies chest pain, Reports leg edema and Denies lightheadedness Respiratory: Respiratory: Denies chest congestion, Denies cough and Denies dyspnea Gastrointestinal: Gastrointestinal: Denies abdominal pain, Denies dyspepsia, Denies diarrhea, Denies nausea and Denies vomiting Genitourinary: Genitourinary: Denies dysuria Musculoskeletal: Musculoskeletal: Denies joint swelling Integumentary/Breasts: Skin/Breast: Denies rash Neurologic: Denies focal weakness and Denies Sensory deficit (Neuro) Psychiatric: Psychiatric: Reports no additional psychiatric complaints and Reports as per HPI Endocrine: Endocrine: Denies cold intolerance, Denies flushing, Denies heat intolerance, Denies polyphagia, Denies polydipsia and Denies palpitations Hematologic/Lymphatic: Hematologic/Lymphatic: Reports no additional hematologic/lymphatic complaints and Reports as per HPI Allergic/Immunologic: Allergic/Immunologic: Reports no additional allergic/immunologic complaints and Reports as per HPI PMFSH Past Medical History Medical History Acute maxillary sinusitis, unspecified Acute recurrent maxillary sinusitis Anemia Cancer Centrilobular emphysema Chronic obstructive pulmonary disease with (acute) exacerbation CKD (chronic kidney disease) CKD (chronic kidney disease) stage 3, GFR 30-59 ml/min COPD (chronic obstructive pulmonary disease) COPD mixed type Cough DVT (deep venous thrombosis) Upper extremity GERD (gastroesophageal reflux disease) Herpes zoster without complication History of tobacco abuse Left leg cellulitis Left leg swelling Leukopenia due to antineoplastic chemotherapy Lung cancer MDD (major depressive disorder), single episode, in partial remission Medication management Mixed hyperlipidemia Mixed hyperlipidemia Non-small cell cancer of left lung franchesca Other nonspecific abnormal finding of lung field Personal history of nicotine dependence Postnasal drip Pulmonary nodule PVD (peripheral vascular disease) arterial Doppler 2018 Recurrent ethmoidal sinusitis Rheumatoid arthritis Rheumatoid arthritis involving multiple sites with positive rheumatoid factor Shortness of Breath Surgical History Surgical History H/O: hysterectomy S/P bronchoscopy with biopsy S/P tonsillectomy childhood Family History Family History Sibling Carcinoma of colon Family history of lung cancer Father Family history of lung cancer COPD (chronic obstructive pulmonary disease) Social History Social History Social History: The patient is . She lives on her own. 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 She has 2 children. She has No poa. She is working on having her niece as the power criminal defense attorney they have the paperwork but have not completed as of yet. She denies any marijuana alcohol or
[2022-06-06] VITALS (10 sets, daily range): BP systolic 88–120; BP diastolic 36–54; PULSE 57–69; RESP 16–18; TEMP 36.4–36.6; O2SAT 94–99
[2022-06-06] MEDS: SODIUM CHLORIDE 0.9% IV 1,000 ML 999 ML IV CONT (02:01)
[2022-06-06] MEDS: SODIUM CHLORIDE 0.9% IV 1,000 ML 65 ML IV CONT ×2 (03:12→19:45)
--- NOTE | 2022-06-06 05:30 | PC.NURSE ---
Per order inserted urinary cath for accurate I/O's .. Chloe urine returned 250ml. Given bolus 1000ml then .9NS at 65ml. Pt ambulated to bathroom with steady gait. Pt calm, cooperative. Instructions given to call for assist. Bed alarm on. Monitor.
[2022-06-06 05:54] LABS: Anion Gap 7 mmol/L (8-16); Blood Urea Nitrogen 56 mg/dL (7-17); Calcium 8.5 mg/dL (8.4-10.2); Carbon Dioxide 27 mmol/L (22-30); Chloride 93 mmol/L (98-107); Estimated CRCL calculation 12 ml/min; Estimated Glomerular Filt Rate 13; Glucose 94 mg/dL (65-110); Magnesium 1.5 mg/dL (1.6-2.3); Phosphorus 4.3 mg/dL (2.5-4.5); Potassium 3.1 mmol/L (3.4-5.0); Sodium 127 mmol/L (137-145)
--- NOTE | 2022-06-06 07:00 | P.PNIM_ITS ---
Progress Note: A&P Assessment and Plan (1) Sepsis: Code(s): A41.9 - Sepsis, unspecified organism Status: Acute Assessment and Plan: * Meets sir criteria with temp 96.4, WBC 35.6 * Source of infection unknown * Renal failure noted with creatinine of 4.34 upon arrival * Lactic acid 0.9 * Urine culture ordered * Blood cultures ordered * Fluids given in ed * Continue IV fluids for now * Start antibiotics as idicateded (2) Acute kidney injury superimposed on CKD: Code(s): N17.9 - Acute kidney failure, unspecified; N18.9 - Chronic kidney disease, unspe cified Status: Acute Assessment and Plan: * BUN/Cr upon arrival was 54/4.34 * Currently trending down 56/3.50 * Nephrology consulted * Urine studies Na 39, Urea 384, Cr 63.8 * FENA score 1.7 intrinsic disease * CK 65 * Trend labs * Avoid nephrotoxic medications * Ultrasound does not indicate any abnormalities * Renal adjust medications * IV fluids NaCl 65ml/hr (3) Hyponatremia: Code(s): E87.1 - Hypo-osmolality and hyponatremia Status: Acute Assessment and Plan: * Current sodium is 127 * Continue to trend sodium * Could be a component of fluid overload * NS at 65ml/hr * Urine studies Na 39, Urea 384, Cr 63.8 * FENA score 1.7 intrinsic disease * Continue to trend labs * Adjust therapy as indicate (4) Leucocytosis: Code(s): D72.829 - Elevated white blood cell count, unspecified Status: Acute Assessment and Plan: * WBC at last discharge was 22.5, 31.6 upon arrival * Currently WBC 25.2 * UA does not appear infectious * Blood cultures ordered * Chest xray stable airspace opacities in the upper lobes likely granulomatous disease and radiation pneumonitis * Continue to trend labs * Consider antibiotics * no source of infection noted * Does appear to be recently on antibiotics, no complaints of diarrhea at this time (5) COPD (chronic obstructive pulmonary disease): Qualifiers: COPD type: emphysema Emphysema type: centrilobular Qualified Code(s): J43.2 - Centrilobular emphysema Code(s): J44.9 - Chronic obstructive pulmonary disease, unspecified Status: Acute Assessment and Plan: * No complaints of shortness of breath, wheezes, endorses increased cough without sputum production * Chronic not in exacerbation * neb treatments * Continue home inhalers breo ellipta * On room air (6) GERD (gastroesophageal reflux disease): Code(s): K21.9 - Gastro-esophageal reflux disease without esophagitis Status: Acute Assessment and Plan: * PPI (7) Non-small cell cancer of left lung: Code(s): C34.92 - Malignant neoplasm of unspecified part of left bronchus or lung Status: Acute Assessment and Plan: * Patient not pursuing treatment * Chest xray from 06/01/22 indicated stable masslike densities * Repeat chest xray ordered (8) Rheumatoid arthritis involving multiple sites with positive rheumatoid factor: Code(s): M05.79 - Rheumatoid arthritis with rheumatoid factor of multiple sites without organ or systems involvement Status: Acute Assessment and Plan: * Tylenol as needed * Continue home hydroxychloroquine
--- NOTE | 2022-06-06 07:00 | PM.IMPN ---
Progress Note: A&P Assessment and Plan (1) Sepsis: Code(s): A41.9 - Sepsis, unspecified organism Status: Acute Assessment and Plan: Meets sir criteria with temp 96.4, WBC 35.6 Source of infection unknown Renal failure noted with creatinine of 4.34 upon arrival Lactic acid 0.9 Urine culture ordered Blood cultures ordered Fluids given in ed Continue IV fluids for now Start antibiotics as idicateded (2) Acute kidney injury superimposed on CKD: Code(s): N17.9 - Acute kidney failure, unspecified; N18.9 - Chronic kidney disease, unspecified Status: Acute Assessment and Plan: BUN/Cr upon arrival was 54/4.34 Currently trending down 56/3.50 Nephrology consulted Urine studies Na 39, Urea 384, Cr 63.8 FENA score 1.7 intrinsic disease CK 65 Trend labs Avoid nephrotoxic medications Ultrasound does not indicate any abnormalities Renal adjust medications IV fluids NaCl 65ml/hr (3) Hyponatremia: Code(s): E87.1 - Hypo-osmolality and hyponatremia Status: Acute Assessment and Plan: Current sodium is 127 Continue to trend sodium Could be a component of fluid overload NS at 65ml/hr Urine studies Na 39, Urea 384, Cr 63.8 FENA score 1.7 intrinsic disease Continue to trend labs Adjust therapy as indicate (4) Leucocytosis: Code(s): D72.829 - Elevated white blood cell count, unspecified Status: Acute Assessment and Plan: WBC at last discharge was 22.5, 31.6 upon arrival Currently WBC 25.2 UA does not appear infectious Blood cultures ordered Chest xray stable airspace opacities in the upper lobes likely granulomatous disease and radiation pneumonitis Continue to trend labs Consider antibiotics no source of infection noted Does appear to be recently on antibiotics, no complaints of diarrhea at this time (5) COPD (chronic obstructive pulmonary disease): Qualifiers: COPD type: emphysema Emphysema type: centrilobular Qualified Code(s): J43.2 - Centrilobular emphysema Code(s): J44.9 - Chronic obstructive pulmonary disease, unspecified Status: Acute Assessment and Plan: No complaints of shortness of breath, wheezes, endorses increased cough without sputum production Chronic not in exacerbation neb treatments Continue home inhalers breo ellipta On room air (6) GERD (gastroesophageal reflux disease): Code(s): K21.9 - Gastro-esophageal reflux disease without esophagitis Status: Acute Assessment and Plan: PPI (7) Non-small cell cancer of left lung: Code(s): C34.92 - Malignant neoplasm of unspecified part of left bronchus or lung Status: Acute Assessment and Plan: Patient not pursuing treatment Chest xray from 06/01/22 indicated stable masslike densities Repeat chest xray ordered (8) Rheumatoid arthritis involving multiple sites with positive rheumatoid factor: Code(s): M05.79 - Rheumatoid arthritis with rheumatoid factor of multiple sites without organ or systems involvement Status: Acute Assessment and Plan: Tylenol as needed Continue home hydroxychloroquine Trend pain (9) Metastatic lung cancer (metastasis from lung to other site): Code(s): C34.90 - Malignant neoplasm of unspecified part of unspecified bronchus or lung Status: Acute Assessment and Plan: Supportive care (10) Mixed hyperlipidemia: Code(s): E78.2 - Mixed hyperlipidemia Status: Acute Assessment and Plan: Continue home rosuvastatin Lipid panel cholesterol 85, triglycerides 85, LDL 35, HDL 30 Adjust medications as indicated (11) CHF (congestive heart failure): Code(s): I50.9 - Heart failure, unspecified Status: Acute Assessment and Plan: Donte cruz
[2022-06-06 07:24] LABS: Basophils Absolute Auto 0.1 K/mm3 (0.0-0.1); Basophils Percent Auto 0.4 % (0.2-1.2); Eosinophils Absolute Auto 0.1 K/mm3 (0-0.3); Eosinophils Percent Auto 0.4 % (0-4.4); Hematocrit 30.7 % (37.0-47.0); Hemoglobin 9.9 g/dL (12.0-15.0); Immature Granulocyte Absolute 0.21 K/mm3 (0.00-0.031); Immature Granulocyte Percent A 0.8 % (0-0.5); Lymphocytes Absolute Auto 1.24 K/mm3 (0.9-3.2); Lymphocytes Percent Auto 4.9 % (18.3-44.2); Mean Corpuscular HGB Conc 32.2 g/dl (32-36); Mean Corpuscular Hemoglobin 28.4 pg (26-34); Mean Corpuscular Volume 88.2 fl (80-100); Mean Platelet Volume 9.7 fl (7.4-10.4); Monocytes Absolute Auto 0.9 K/mm3 (0.1-0.6); Monocytes Percent Auto 3.7 % (2.6-8.5); Neutrophils Absolute Auto 22.6 K/mm3 (1.3-6.7); Neutrophils Percent Auto 89.8 % (45.5-73.1); Platelet Count Result 233 k/mm3 (150-375); Red Blood Count 3.48 M/mm3 (4.2-5.4); Red Cell Distribution Width 16.9 % (11.5-14.5); White Blood Count 25.2 K/mm3 (4.5-10.0)
[2022-06-06 07:54] LABS: NT Pro B Type Natriuretic Pept 4090 pg/mL (19.9-100)
[2022-06-06 08:37] LABS: Creatine Kinase 65 U/L (30-135)
[2022-06-06 08:37] LABS: Cholesterol 85 mg/dL (0-200); HDL Direct 30 mg/dL; Triglycerides 85 mg/dL (<150)
[2022-06-06] MEDS: POTASSIUM CHLORIDE 20 MEQ TABLET 40 MEQ PO (08:37)
[2022-06-06] MEDS: PANTOPRAZOLE 40 MG TABLET PO (08:38)
[2022-06-06] MEDS: MAGNESIUM SULF 4 GM/WATER100ML 4 GM/100 ML BAG IVPB (08:38)
[2022-06-06 08:39] LABS: Lactic Acid Reflex 0.9 mmol/L (0.7-2.0)
[2022-06-06 08:40] LABS: Transferrin 180 mg/dL (206-381)
[2022-06-06 08:46] LABS: Complement C3 85 mg/dL (88-165)
[2022-06-06 08:48] LABS: LDL Cholesterol Direct 35 mg/dL
[2022-06-06 09:12] LABS: Iron 50 ug/dL (37-170)
[2022-06-06 09:16] LABS: Appearance Urine Clear (Clear); Bilirubin Urine Negative (Negative); Ketones Urine Negative (Negative); Leukocyte Esterase Ur Negative LEU/UL (Negative)
[2022-06-06 09:17] LABS: Add Urine Microscopic? YES; Color Urine Dark Yellow (Yellow)
[2022-06-06 09:20] LABS: Creatinine Urine 63.8 mg/dL; Urea Random Urine 384 MG/DL
[2022-06-06 09:21] LABS: Percent Iron Saturation 18 % (20-50)
[2022-06-06 09:27] LABS: Mucus Urine Rare /lpf; RBC Urine 0-2 /hpf (0-2); Squamous Epithelial Cell Urine Rare /hpf (Few)
[2022-06-06] MEDS: FLUTICASONE/SALMETEROL 115-21 MCG INHALER 1 PUFF 2 PUFF INHALATION ×2 (09:27→20:04)
[2022-06-06 09:32] LABS: Sodium Urine Random 39 meq/L
[2022-06-06 09:40] LABS: Folic Acid > 20.0 ng/mL (2.76->20); Vitamin B12 > 1000.0 pg/mL (239-931)
[2022-06-06 09:46] LABS: Hepatitis B Surface Antigen Negative (Negative)
[2022-06-06 09:52] LABS: HAV RESULT Negative (Negative); Hepatitis B Core IgM Result Negative (Negative)
[2022-06-06 10:03] LABS: Hepatitis C Virus Antibody Negative (Negative)
[2022-06-06] MEDS: HYDROXYCHLOROQUINE SULFATE 200 MG TABLET 400 MG PO (10:09)
[2022-06-06] MEDS: FOLIC ACID 1 MG TABLET PO (10:09)
[2022-06-06] MEDS: MULTIVITAMINS THERAPEUTIC TAB (*BKC) 1 TABLET BY MOUTH (10:10)
--- NOTE | 2022-06-06 15:12 | PM.CNNEP ---
Assessment and Plan Assessment and plan (1) KHANH (acute kidney injury): Code(s): N17.9 - Acute kidney failure, unspecified Status: Acute Assessment and Plan: elevated on admission with a creatinine of 4.34 improvement noted with gentle IVFs and holding diuretics evaluation to date: urine electrolytes non-prerenal CPK okay renal ultrasound without acute issues suspicion falls on possible overdiuresis follow volume status close follow repeat labs and UOP (2) Stage 3b chronic kidney disease: Code(s): N18.32 - Chronic kidney disease, stage 3b Status: Chronic Assessment and Plan: baseline creatinine seems to have fluctuated to extremes seems to average out to ~ 1.2 - 1.8mg/dl 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 (3) Leucocytosis: Code(s): D72.829 - Elevated white blood cell count, unspecified Status: Acute Assessment and Plan: concern is for possible sepsis cultures in progress no clear source of infection at this time holding antibiotics for now (4) CHF (congestive heart failure): Code(s): I50.9 - Heart failure, unspecified Status: Chronic Assessment and Plan: recent hospitalization for an acute exacerbation appears compensated at this time (5) Non-small cell cancer of left lung: Code(s): C34.92 - Malignant neoplasm of unspecified part of left bronchus or lung Status: Acute Assessment and Plan: not pursuing any further treatment Will continue to follow. History of Present Illness Reason for Consult Consult date: 06/06/22 Reason for consult: acute renal failure (on chronic kidney disease) Chief Complaint Chief complaint: KHANH/CKD History of Present Illness Narrative: The patient is 71-year-old female with a past medical history as outlined below who was directly admitted to [facility] from [facility] on to the emergency room for further evaluation of acute kidney injury/acute renal failure. The patient was just recently discharged from the [facility] stones in after being treated for a CHF exacerbation. She was treated with a combination of fluid restriction and IV diuretic therapy with improvement in her swelling/edema with subsequent discharge on oral diuretics. Apparently, outpatient blood work showed ongoing deterioration of her kidney function which prompted her referral back to the emergency room. Repeat testing at that time did demonstrate that her renal function was worse than baseline and given the concern that she may require further intervention with regard to this issue, she was transferred to [facility] for further evaluation and therapy Since her admission, there has been concern for possible sepsis given her significantly elevated white blood cell count. So far, no clear source of infection has been present and appropriate cultures have been obtained but no antibiotic therapy has been instituted given no clear source of infection. Her diuretic therapy has been held and she has been receiving gentle IV fluids with improvement in her renal function as noted by her a.m. labs Renal consultation was requested due to her acute kidney injury on top of her baseline kidney disease. The patient normally follows with Dr. Arden Hollins in clinic for management of her chronic kidney disease. Her baseline creatinine normally fluctuate anywhere from 1.2-1.8 mg/dL and is 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. In the last few months, she has been having ongoing issues and problems with lower extremity edema requiring diuretic therapy but as noted by her outpatient records, the balancing act to keep the swelling controlled and not to lead to dehydration has been somewhat of an ongoing problem. However, from review of records, it would seem that her kidney function has deteriorated somewhat since early March of last year so there
[2022-06-06 16:55] LABS: Free T4 Free Thyroxine Reflex 2.35 ng/dL (0.78-2.19)
[2022-06-06] MEDS: RIVAROXABAN 20 MG TABLET PO (17:10)
[2022-06-06] MEDS: ROSUVASTATIN 10 MG TABLET PO (20:44)
[2022-06-07] VITALS (8 sets, daily range): BP systolic 102–128; BP diastolic 34–55; PULSE 66–84; RESP 16–18; TEMP 36.4–36.8; O2SAT 94–100
--- NOTE | 2022-06-07 00:56 | PC.NURSE ---
1999 BP R arm 91/36 L arm 88/48 pulse 62. Held metoprolol tartrate 100mg due at [address] Benavides . Instructed to monitor pt. 0- BP R arm 94/37 L arm 97/44 pulse 69 Pt asymptomatic Remains in bed all shift except if needs to have BM.
[2022-06-07 07:32] LABS: Basophils Absolute Auto 0.2 K/mm3 (0.0-0.1); Basophils Percent Auto 0.8 % (0.2-1.2); Eosinophils Absolute Auto 0.1 K/mm3 (0-0.3); Eosinophils Percent Auto 0.3 % (0-4.4); Hematocrit 31.6 % (37.0-47.0); Immature Granulocyte Absolute 0.22 K/mm3 (0.00-0.031); Immature Granulocyte Percent A 0.9 % (0-0.5); Lymphocytes Absolute Auto 1.58 K/mm3 (0.9-3.2); Lymphocytes Percent Auto 6.4 % (18.3-44.2); Mean Corpuscular HGB Conc 31.6 g/dl (32-36); Mean Corpuscular Hemoglobin 28.8 pg (26-34); Mean Corpuscular Volume 91.1 fl (80-100); Mean Platelet Volume 9.2 fl (7.4-10.4); Monocytes Absolute Auto 0.9 K/mm3 (0.1-0.6); Monocytes Percent Auto 3.6 % (2.6-8.5); Neutrophils Absolute Auto 21.6 K/mm3 (1.3-6.7); Platelet Count Result 224 k/mm3 (150-375); Red Blood Count 3.47 M/mm3 (4.2-5.4); Red Cell Distribution Width 17.1 % (11.5-14.5); White Blood Count 24.5 K/mm3 (4.5-10.0)
[2022-06-07 07:48] LABS: Albumin Level 3.4 g/dL (3.5-5.1); Anion Gap 6 mmol/L (8-16); Blood Urea Nitrogen 44 mg/dL (7-17); Calcium 8.6 mg/dL (8.4-10.2); Carbon Dioxide 28 mmol/L (22-30); Chloride 97 mmol/L (98-107); Estimated CRCL calculation 16 ml/min; Estimated Glomerular Filt Rate 17; Glucose 99 mg/dL (65-110); Phosphorus 4.1 mg/dL (2.5-4.5); Potassium 3.4 mmol/L (3.4-5.0); Sodium 131 mmol/L (137-145)
[2022-06-07 07:59] LABS: Anisocytosis 1+ (NORMAL); Platelet Estimate Adequate (Adequate); Schistocytes None Seen (NORMAL)
[2022-06-07] MEDS: FOLIC ACID 1 MG TABLET PO (08:07)
[2022-06-07] MEDS: HYDROXYCHLOROQUINE SULFATE 200 MG TABLET 400 MG PO (08:08)
[2022-06-07] MEDS: PANTOPRAZOLE 40 MG TABLET PO (08:09)
[2022-06-07] MEDS: MULTIVITAMINS THERAPEUTIC TAB (*BKC) 1 TABLET BY MOUTH (08:09)
--- NOTE | 2022-06-07 10:30 | P.PNIM_ITS ---
Progress Note: A&P Assessment and Plan (1) Sepsis: Code(s): A41.9 - Sepsis, unspecified organism Status: Acute Assessment and Plan: * Meets sir criteria with temp 96.4, WBC 35.6 * Source of infection unknown * Renal failure noted with creatinine of 4.34 upon arrival * Lactic acid 0.9 * Urine culture did not reflex due to UA appearing clean * Blood cultures ordered * Fluids given in ed * Continue IV fluids for now * Start antibiotics as indicated (2) Acute kidney injury superimposed on CKD: Code(s): N17.9 - Acute kidney failure, unspecified; N18.9 - Chronic kidney disease, unspecified Status: Acute Assessment and Plan: * BUN/Cr upon arrival was 54/4.34 * Currently trending down to 44/2.70 * Nephrology consulted * Urine studies Na 39, Urea 384, Cr 63.8 * FENA score 1.7 intrinsic disease * CK 65 * Trend labs * Avoid nephrotoxic medications * Ultrasound does not indicate any abnormalities * Renal adjust medications * IV fluids NaCl 65ml/hr (3) Hyponatremia: Code(s): E87.1 - Hypo-osmolality and hyponatremia Status: Acute Assessment and Plan: * Current sodium is 131 * Continue to trend sodium * Could be a component of fluid overload * NS at 65ml/hr * Urine studies Na 39, Urea 384, Cr 63.8 * FENA score 1.7 intrinsic disease * Continue to trend labs * Adjust therapy as indicate (4) Leucocytosis: Code(s): D72.829 - Elevated white blood cell count, unspecified Status: Acute Assessment and Plan: * WBC at last discharge was 22.5, 31.6 upon arrival * Currently WBC 24.5 * UA does not appear infectious * Blood cultures ordered * Chest xray stable airspace opacities in the upper lobes likely granulomatous disease and radiation pneumonitis * Continue to trend labs * Consider antibiotics * no source of infection noted * Does appear to be recently on antibiotics, no complaints of diarrhea at this time (5) COPD (chronic obstructive pulmonary disease): Qualifiers: COPD type: emphysema Emphysema type: centrilobular Qualified Code(s): J43.2 - Centrilobular emphysema Code(s): J44.9 - Chronic obstructive pulmonary disease, unspecified Status: Acute Assessment and Plan: * No complaints of shortness of breath, wheezes, endorses increased cough without sputum production * Chronic not in exacerbation * neb treatments * Continue home inhalers breo ellipta * On room air (6) GERD (gastroesophageal reflux disease): Code(s): K21.9 - Gastro-esophageal reflux disease without esophagitis Status: Acute Assessment and Plan: * PPI (7) Non-small cell cancer of left lung: Code(s): C34.92 - Malignant neoplasm of unspecified part of left bronchus or lung Status: Acute Assessment and Plan: * Patient not pursuing treatment * Chest xray from 06/01/22 indicated stable masslike densities * Repeat chest xray Stable airspace opacities in the upper lobes, likely a combination of granulomatous disease and radiation pneumonitis (8) Rheumatoid arthritis involving multiple sites with positive rheumatoid factor: Code(s): M05.79 - Rheumatoid arthritis with rheumatoid factor of multiple sites without orga
--- NOTE | 2022-06-07 10:30 | PM.IMPN ---
Progress Note: A&P Assessment and Plan (1) Sepsis: Code(s): A41.9 - Sepsis, unspecified organism Status: Acute Assessment and Plan: Meets sir criteria with temp 96.4, WBC 35.6 Source of infection unknown Renal failure noted with creatinine of 4.34 upon arrival Lactic acid 0.9 Urine culture did not reflex due to UA appearing clean Blood cultures ordered Fluids given in ed Continue IV fluids for now Start antibiotics as indicated (2) Acute kidney injury superimposed on CKD: Code(s): N17.9 - Acute kidney failure, unspecified; N18.9 - Chronic kidney disease, unspecified Status: Acute Assessment and Plan: BUN/Cr upon arrival was 54/4.34 Currently trending down to 44/2.70 Nephrology consulted Urine studies Na 39, Urea 384, Cr 63.8 FENA score 1.7 intrinsic disease CK 65 Trend labs Avoid nephrotoxic medications Ultrasound does not indicate any abnormalities Renal adjust medications IV fluids NaCl 65ml/hr (3) Hyponatremia: Code(s): E87.1 - Hypo-osmolality and hyponatremia Status: Acute Assessment and Plan: Current sodium is 131 Continue to trend sodium Could be a component of fluid overload NS at 65ml/hr Urine studies Na 39, Urea 384, Cr 63.8 FENA score 1.7 intrinsic disease Continue to trend labs Adjust therapy as indicate (4) Leucocytosis: Code(s): D72.829 - Elevated white blood cell count, unspecified Status: Acute Assessment and Plan: WBC at last discharge was 22.5, 31.6 upon arrival Currently WBC 24.5 UA does not appear infectious Blood cultures ordered Chest xray stable airspace opacities in the upper lobes likely granulomatous disease and radiation pneumonitis Continue to trend labs Consider antibiotics no source of infection noted Does appear to be recently on antibiotics, no complaints of diarrhea at this time (5) COPD (chronic obstructive pulmonary disease): Qualifiers: COPD type: emphysema Emphysema type: centrilobular Qualified Code(s): J43.2 - Centrilobular emphysema Code(s): J44.9 - Chronic obstructive pulmonary disease, unspecified Status: Acute Assessment and Plan: No complaints of shortness of breath, wheezes, endorses increased cough without sputum production Chronic not in exacerbation neb treatments Continue home inhalers breo ellipta On room air (6) GERD (gastroesophageal reflux disease): Code(s): K21.9 - Gastro-esophageal reflux disease without esophagitis Status: Acute Assessment and Plan: PPI (7) Non-small cell cancer of left lung: Code(s): C34.92 - Malignant neoplasm of unspecified part of left bronchus or lung Status: Acute Assessment and Plan: Patient not pursuing treatment Chest xray from 06/01/22 indicated stable masslike densities Repeat chest xray Stable airspace opacities in the upper lobes, likely a combination of granulomatous disease and radiation pneumonitis (8) Rheumatoid arthritis involving multiple sites with positive rheumatoid factor: Code(s): M05.79 - Rheumatoid arthritis with rheumatoid factor of multiple sites without organ or systems involvement Status: Acute Assessment and Plan: Tylenol as needed Continue home hydroxychloroquine Trend pain (9) Metastatic lung cancer (metastasis from lung to other site): Code(s): C34.90 - Malignant neoplasm of unspecified part of unspecified bronchus or lung Status: Acute Assessment and Plan: Supportive care (10) Mixed hyperlipidemia: Code(s): E78.2 - Mixed hyperlipidemia Status: Acute Assessment and Plan: Continue home rosuvastatin Lipid panel cholesterol 85, triglycerides 85, LDL 35, HDL 30 Adjust medications as indicated
[2022-06-07] MEDS: FLUTICASONE/SALMETEROL 115-21 MCG INHALER 1 PUFF 2 PUFF INHALATION ×2 (10:36→20:06)
[2022-06-07] MEDS: SODIUM CHLORIDE 0.9% IV 1,000 ML 65 ML IV CONT (13:50)
--- NOTE | 2022-06-07 14:45 | PM.PNNEP ---
Progress Note: A&P Assessment and Plan (1) KHANH (acute kidney injury): Code(s): N17.9 - Acute kidney failure, unspecified Status: Acute Assessment and Plan: improvement noted elevated on admission with a creatinine of 4.34 improvement noted with gentle IVFs and holding diuretics evaluation to date: urine electrolytes non-prerenal CPK okay renal ultrasound without acute issues suspicion falls on possible overdiuresis follow volume status close follow repeat labs and UOP (2) Stage 3b chronic kidney disease: Code(s): N18.32 - Chronic kidney disease, stage 3b Status: Chronic Assessment and Plan: baseline creatinine seems to have fluctuated to extremes seems to average out to ~ 1.2 - 1.8mg/dl 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 (3) Leucocytosis: Code(s): D72.829 - Elevated white blood cell count, unspecified Status: Acute Assessment and Plan: concern is for possible sepsis cultures in progress no clear source of infection at this time holding antibiotics for now (4) CHF (congestive heart failure): Code(s): I50.9 - Heart failure, unspecified Status: Chronic Assessment and Plan: recent hospitalization for an acute exacerbation appears compensated at this time (5) Non-small cell cancer of left lung: Code(s): C34.92 - Malignant neoplasm of unspecified part of left bronchus or lung Status: Acute Assessment and Plan: not pursuing any further treatment Will continue to follow. Subjective Date/time seen: 06/07/22 14:45 Continues to do reasonably well; noted ongoing improvement in renal function with current interventions; no apparent distress noted; no other issues/events overnight or earlier this morning. Exam Narrative: General: WD/WN female in NAD Heart: normal S1 and S2; no rub Lungs: clear to auscultation Abdomen: soft, nontender, nondistended, positive bowel sounds Extremities: no cyanosis or clubbing; trace edema Skin: warm and dry Objective Data Vital Signs Vital Signs: Vital Signs Temp Pulse Resp BP Pulse Ox O2 Del Method 06/07/22 12:00 97.9 F 68 18 128/52 L 100 06/07/22 08:00 Room Air 06/07/22 08:07 67 06/07/22 08:06 67 116/55 L 06/07/22 03:44 97.6 F 66 17 111/34 L 94 06/06/22 23:34 94/37 L 06/06/22 23:33 97.9 F 69 17 97/44 L 94 06/06/22 20:46 62 06/06/22 20:04 88/48 L 06/06/22 20:00 97.8 F 62 18 91/36 L 95 06/06/22 18:39 97.8 F 61 16 100/54 L 98 Intake/Output Intake/Output: Intake & Output 06/04/22 06/05/22 06/06/22 06/07/22 23:59 23:59 23:59 23:59 Intake Total 2920 2610 Output Total 850 500 Balance 2070 2110 Meds/Results Medications: Active Medications Generic Name Dose Route Start Last Admin Trade Name Freq PRN Reason Stop Dose Admin Acetaminophen 650 mg 06/06/22 00:17 Acetaminophen 325 Mg Tablet PO Q4H PRN Mild Pain (1-3) or Fever Al Hydrox/Mg Hydrox/Simethicone 30 ml 06/06/22 00:17 Mag Hydrox/Al Hydrox/Simeth 30 Ml Udc PO QID PRN Dyspepsia Amiodarone HCl 200 mg 06/06/22 08:00 06/07/22 08:07 Amiodarone Hcl 200 Mg Tablet PO Not Given DAILY@0800 HERMINIA Folic Acid 1 mg 06/06/22 09:00 06/07/22 08:07 Folic Acid 1 Mg Tablet PO 1 mg DAILY HERMINIA Administration Hydroxychloroquine Sulfate 400 mg 06/06/22 09:00 06/07/22 08:08 Hydroxychloroquine Sulfate 200 Mg Tablet PO 400 mg DAILY HERMINIA Administration Sodium Chloride 1,000 mls @ 65 mls/hr 06/06/22 00:20 06/07/22 13:50 Normal Saline Iv IV CONT 65 mls/hr .[id number] HERMINIA Administration Metoprolol Tartrate 100 mg 06/06/22 09:00 06/07/22 08:09 Metoprolol Tartrate 50 Mg Tab PO Not Given Q12HR HERMINIA Multivitamins Therapeutic 1 tablet 06/06/22 09:00 06/07/22 08:09 Multivitamins Therapeutic Tab (*Bkc) BY MOUTH
--- NOTE | 2022-06-07 14:45 | P.PNNP_ITS ---
Progress Note: A&P Assessment and Plan (1) KHANH (acute kidney injury): Code(s): N17.9 - Acute kidney failure, unspecified Status: Acute Assessment and Plan: * improvement noted * elevated on admission with a creatinine of 4.34 * improvement noted with gentle IVFs and holding diuretics * evaluation to date: * urine electrolytes non-prerenal * CPK okay * renal ultrasound without acute issues * suspicion falls on possible overdiuresis * follow volume status close * follow repeat labs and UOP (2) Stage 3b chronic kidney disease: Code(s): N18.32 - Chronic kidney disease, stage 3b Status: Chronic Assessment and Plan: * baseline creatinine seems to have fluctuated to extremes * seems to average out to ~ 1.2 - 1.8mg/dl * 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 (3) Leucocytosis: Code(s): D72.829 - Elevated white blood cell count, unspecified Status: Acute Assessment and Plan: * concern is for possible sepsis * cultures in progress * no clear source of infection at this time * holding antibiotics for now (4) CHF (congestive heart failure): Code(s): I50.9 - Heart failure, unspecified Status: Chronic Assessment and Plan: * recent hospitalization for an acute exacerbation * appears compensated at this time (5) Non-small cell cancer of left lung: Code(s): C34.92 - Malignant neoplasm of unspecified part of left bronchus or lung Status: Acute Assessment and Plan: * not pursuing any further treatment Will continue to follow. Subjective Date/time seen: 06/07/22 14:45 Continues to do reasonably well; noted ongoing improvement in renal function with current interventions; no apparent distress noted; no other issues/events overnight or earlier this morning. Exam Narrative: General: WD/WN female in NAD Heart: normal S1 and S2; no rub Lungs: clear to auscultation Abdomen: soft, nontender, nondistended, positive bowel sounds Extremities: no cyanosis or clubbing; trace edema Skin: warm and dry Objective Data Vital Signs Vital Signs: Vital Signs Temp Pulse Resp BP Pulse Ox O2 Del Method 06/07/22 12:00 97.9 F 68 18 128/52 L 100 06/07/22 08:00 Room Air 06/07/22 08:07 67 06/07/22 08:06 67 116/55 L 06/07/22 03:44 97.6 F 66 17 111/34 L 94 06/06/22 23:34 94/37 L 06/06/22 23:33 97.9 F 69 17 97/44 L 94 06/06/22 20:46 62 06/06/22 20:04 88/48 L 06/06/22 20:00 97.8 F 62 18 91/36 L 95 06/06/22 18:39 97.8 F 61 16 100/54 L 98 Intake/Output Intake/Output: Intake & Output 06/04/22 06/05/22 06/06/22 06/07/22 23:59 23:59 23:59 23:59 Intake Total 2920 2610 Output Total 850 500 Balance 2070 2110 Meds/Results Medications: Active Medications Generic Name Dose Route Start Last Admin Trade Name Freq PRN Reason Stop Dose Admin Acetaminophen 650 mg 06/06/22 00:17 Acetaminophen 325 Mg Tablet PO Q4H PRN Mild Pain (1-3) or Fever Al Hydrox/Mg Hydrox/Simethicone 30 ml 06/06/22 00:17 Mag Hydrox/[place]
[2022-06-07] MEDS: RIVAROXABAN 20 MG TABLET PO (17:10)
[2022-06-07] MEDS: ACETAMINOPHEN 325 MG TABLET 650 MG PO (21:01)
[2022-06-07] MEDS: ROSUVASTATIN 10 MG TABLET PO (21:05)
[2022-06-07] MEDS: traMADol HCL (*CRX) 50 MG TABLET PO (23:33)
[2022-06-08] VITALS (11 sets, daily range): BP systolic 111–115; BP diastolic 37–44; PULSE 63–78; RESP 16–22; TEMP 36.1–36.7; O2SAT 94–98
--- NOTE | 2022-06-08 | ECHO_ITS ---
Patient Info Name: Skylar Aguilera Age: 76 years : 1945 Gender: Female Ht: 68 in Wt: 175 lbs BSA: 1.97 m2 HR: 68 bpm BP: 102 / 52 mmHg Heart Rhythm: Sinus Rhythm Technical Quality: Poor Exam Date: 06/08/2022 2:09 PM Exam Location: [facility] Patient Status: Inpatient Admit Date: 06/06/2022 Staff Ordering Physician: Norah Solano MD Metal Annealer: Ave Scott RDCS Attending Provider: Waleska Julien DO Referring Physician: Xiomara PAPPAS; Exam Type: CA echo dop color flow w con Study Info Indications - KHANH/CKD Complete two-dimensional, color flow and Doppler transthoracic echocardiogram is performed with contrast to opacify the left ventricle and to improve the deliniation of the left ventricle endocardial borders. Contrast/Agitated Saline Contrast/Ag. Saline: Definity Amount: 4.00 ml Administered By: Ave Scott [facility] Summary 1. Technically difficult study with limited views. Definity contrast administered. 2. Left ventricular chamber dimension is normal. 3. Left ventricular systolic function is normal, estimated at 65-70%. 4. There is no increased left ventricular wall thickness. 5. The left ventricular diastolic function is grade II diastolic dysfunction. 6. Right ventricular chamber dimension is moderately enlarged. 7. Right ventricular systolic function is normal. TAPSE 2.4. 8. There is mild to moderate mitral valve regurgitation. 9. There is moderate tricuspid valve regurgitation. 10. No pulmonary hypertension, estimated pulmonary arterial systolic pressure is 27 mmHg. 11. Flattening of the ventricular septum in mid to late diastole consistent with right ventricular volume overload. 12. Normal inferior vena cava with >50% collapse upon inspiration consistent with normal right atrial pressure, 5 mmHg. Left Ventricle Left ventricular chamber dimension is normal. Left ventricular systolic function is normal, estimated at 65-70%. There is no increased left ventricular wall thickness. The left ventricular diastolic function is grade II diastolic dysfunction. Technically difficult study with limited views. Definity contrast administered. Right Ventricle Right ventricular chamber dimension is moderately enlarged. Right ventricular systolic function is normal. TAPSE 2.4. Flattening of the ventricular septum in mid to late diastole consistent with right ventricular volume overload. Left Atria Left atrial chamber dimension is normal. Right Atria Right atrial chamber dimension is mildly enlarged. Aortic Valve The aortic valve is not well visualized. There is no aortic valve stenosis. There is no aortic valve regurgitation. Pulmonic Valve The pulmonic valve is not well visualized. Mitral Valve The mitral valve has normal leaflets. There is mild to moderate mitral valve regurgitation. The mitral valve annulus is mildly calcified. Tricuspid Valve The tricuspid valve leaflets are normal. There is moderate tricuspid valve regurgitation. No pulmonary hypertension, estimated pulmonary arterial systolic pressure is 27 mmHg. Pericardium/Pleural The pericardium appears normal. There is no pericardial effusion. Inferior Vena Cava Normal inferior vena cava with >50% collapse upon inspiration consistent with normal right atrial pressure, 5 mmHg. Aorta The aortic root size at the sinus of Valsalva is normal. There is mild aortic atherosclerosis. Left
--- NOTE | 2022-06-08 01:56 | PC.NURSE ---
Pt with c/o left side chest pressure 5/10 non-radiating, nonreproducible at 2300 Pt with left side lung CA Sitting upright in bed with feet touching the bottom foot board. Metoprolol has been held past two days secondary to low BP, Amio held in am as well. Pt had been given tylenol po for minor right shoulder arthritic pain at 2100. Pt repositioned with two assists to position pt more upright in bed. Notified hospitalist Dr. Benavides. Received order to give tramadol 50mg po x1. Continue to monitor.
[2022-06-08] MEDS: SODIUM CHLORIDE 0.9% IV 1,000 ML 65 ML IV CONT ×2 (04:33→20:51)
[2022-06-08 06:10] LABS: Basophils Absolute Auto 0.1 K/mm3 (0.0-0.1); Basophils Percent Auto 0.4 % (0.2-1.2); Eosinophils Absolute Auto 0.1 K/mm3 (0-0.3); Eosinophils Percent Auto 0.4 % (0-4.4); Hematocrit 30.1 % (37.0-47.0); Hemoglobin 9.5 g/dL (12.0-15.0); Immature Granulocyte Absolute 0.12 K/mm3 (0.00-0.031); Immature Granulocyte Percent A 0.6 % (0-0.5); Lymphocytes Absolute Auto 1.67 K/mm3 (0.9-3.2); Lymphocytes Percent Auto 8.8 % (18.3-44.2); Mean Corpuscular HGB Conc 31.6 g/dl (32-36); Mean Corpuscular Hemoglobin 28.4 pg (26-34); Mean Corpuscular Volume 90.1 fl (80-100); Mean Platelet Volume 9.2 fl (7.4-10.4); Monocytes Absolute Auto 0.8 K/mm3 (0.1-0.6); Neutrophils Absolute Auto 16.2 K/mm3 (1.3-6.7); Neutrophils Percent Auto 85.8 % (45.5-73.1); Platelet Count Result 240 k/mm3 (150-375); Red Blood Count 3.34 M/mm3 (4.2-5.4); Red Cell Distribution Width 17.2 % (11.5-14.5); White Blood Count 18.9 K/mm3 (4.5-10.0)
[2022-06-08 06:18] LABS: Alanine Aminotransferase 32 U/L (6-35); Alkaline Phosphatase 153 U/L (38-126); Anion Gap 7 mmol/L (8-16); Aspartate Amino Transferase 40 U/L (14-36); Bilirubin,Total 0.6 mg/dL (0.2-1.3); Blood Urea Nitrogen 34 mg/dL (7-17); Calcium 8.3 mg/dL (8.4-10.2); Carbon Dioxide 25 mmol/L (22-30); Chloride 101 mmol/L (98-107); Estimated CRCL calculation 21 ml/min; Estimated Glomerular Filt Rate 24; Glucose 95 mg/dL (65-110); Magnesium 2.1 mg/dL (1.6-2.3); Potassium 3.3 mmol/L (3.4-5.0); Sodium 133 mmol/L (137-145)
[2022-06-08] MEDS: AMIODARONE HCL 200 MG TABLET PO (08:30)
[2022-06-08] MEDS: HYDROXYCHLOROQUINE SULFATE 200 MG TABLET 400 MG PO (08:30)
[2022-06-08] MEDS: MULTIVITAMINS THERAPEUTIC TAB (*BKC) 1 TABLET BY MOUTH (08:30)
[2022-06-08] MEDS: METOPROLOL TARTRATE 50 MG TAB 100 MG PO ×2 (08:31→20:51)
[2022-06-08] MEDS: PANTOPRAZOLE 40 MG TABLET PO (08:32)
[2022-06-08] MEDS: FOLIC ACID 1 MG TABLET PO (08:32)
[2022-06-08] MEDS: FLUTICASONE/SALMETEROL 115-21 MCG INHALER 1 PUFF 2 PUFF INHALATION ×2 (08:38→21:08)
--- NOTE | 2022-06-08 10:00 | P.PNIM_ITS ---
Progress Note: A&P Assessment and Plan (1) Sepsis: Code(s): A41.9 - Sepsis, unspecified organism Status: Acute Assessment and Plan: * Meets sir criteria with temp 96.4, WBC 35.6 * WBC currently 18.9 continue to trend down * Source of infection unknown * Renal failure noted with creatinine of 4.34 upon arrival * Lactic acid 0.9 * Urine culture did not reflex due to UA appearing clean * Blood cultures ordered * Fluids given in ed * Continue IV fluids for now * Start antibiotics as indicated * Seems to be resolving (2) Acute kidney injury superimposed on CKD: Code(s): N17.9 - Acute kidney failure, unspecified; N18.9 - Chronic kidney disease, unspecified Status: Acute Assessment and Plan: * BUN/Cr upon arrival was 54/4.34 * Currently trending down to 34/2.00 * Nephrology consulted * Urine studies Na 39, Urea 384, Cr 63.8 * FENA score 1.7 intrinsic disease * CK 65 * Trend labs * Avoid nephrotoxic medications * Ultrasound does not indicate any abnormalities * Renal adjust medications * IV fluids NaCl 65ml/hr (3) Hyponatremia: Code(s): E87.1 - Hypo-osmolality and hyponatremia Status: Acute Assessment and Plan: * Current sodium is 133 * Continue to trend sodium * Could be a component of fluid overload * NS at 65ml/hr * Urine studies Na 39, Urea 384, Cr 63.8 * FENA score 1.7 intrinsic disease * Continue to trend labs * Adjust therapy as indicate (4) Leucocytosis: Code(s): D72.829 - Elevated white blood cell count, unspecified Status: Acute Assessment and Plan: * WBC at last discharge was 22.5, 31.6 upon arrival * Currently WBC 18.9 * UA does not appear infectious * Blood cultures ordered * Chest xray stable airspace opacities in the upper lobes likely granulomatous disease and radiation pneumonitis * Continue to trend labs * Consider antibiotics * no source of infection noted * Does appear to be recently on antibiotics, no complaints of diarrhea at this time (5) COPD (chronic obstructive pulmonary disease): Qualifiers: COPD type: emphysema Emphysema type: centrilobular Qualified Code(s): J43.2 - Centrilobular emphysema Code(s): J44.9 - Chronic obstructive pulmonary disease, unspecified Status: Acute Assessment and Plan: * No complaints of shortness of breath, wheezes, endorses increased cough without sputum production * Chronic not in exacerbation * neb treatments * Continue home inhalers breo ellipta * On room air (6) GERD (gastroesophageal reflux disease): Code(s): K21.9 - Gastro-esophageal reflux disease without esophagitis Status: Acute Assessment and Plan: * PPI (7) Non-small cell cancer of left lung: Code(s): C34.92 - Malignant neoplasm of unspecified part of left bronchus or lung Status: Acute Assessment and Plan: * Patient not pursuing treatment * Chest xray from 06/01/22 indicated stable masslike densities * Repeat chest xray Stable airspace opacities in the upper lobes, likely a combination of granulomatous disease and radiation pneumonitis (8) Rheumatoid arthritis involving multiple sites with positive rheumatoid factor: Code(s): M05.79 -
--- NOTE | 2022-06-08 10:00 | PM.IMPN ---
Progress Note: A&P Assessment and Plan (1) Sepsis: Code(s): A41.9 - Sepsis, unspecified organism Status: Acute Assessment and Plan: Meets sir criteria with temp 96.4, WBC 35.6 WBC currently 18.9 continue to trend down Source of infection unknown Renal failure noted with creatinine of 4.34 upon arrival Lactic acid 0.9 Urine culture did not reflex due to UA appearing clean Blood cultures ordered Fluids given in ed Continue IV fluids for now Start antibiotics as indicated Seems to be resolving (2) Acute kidney injury superimposed on CKD: Code(s): N17.9 - Acute kidney failure, unspecified; N18.9 - Chronic kidney disease, unspecified Status: Acute Assessment and Plan: BUN/Cr upon arrival was 54/4.34 Currently trending down to 34/2.00 Nephrology consulted Urine studies Na 39, Urea 384, Cr 63.8 FENA score 1.7 intrinsic disease CK 65 Trend labs Avoid nephrotoxic medications Ultrasound does not indicate any abnormalities Renal adjust medications IV fluids NaCl 65ml/hr (3) Hyponatremia: Code(s): E87.1 - Hypo-osmolality and hyponatremia Status: Acute Assessment and Plan: Current sodium is 133 Continue to trend sodium Could be a component of fluid overload NS at 65ml/hr Urine studies Na 39, Urea 384, Cr 63.8 FENA score 1.7 intrinsic disease Continue to trend labs Adjust therapy as indicate (4) Leucocytosis: Code(s): D72.829 - Elevated white blood cell count, unspecified Status: Acute Assessment and Plan: WBC at last discharge was 22.5, 31.6 upon arrival Currently WBC 18.9 UA does not appear infectious Blood cultures ordered Chest xray stable airspace opacities in the upper lobes likely granulomatous disease and radiation pneumonitis Continue to trend labs Consider antibiotics no source of infection noted Does appear to be recently on antibiotics, no complaints of diarrhea at this time (5) COPD (chronic obstructive pulmonary disease): Qualifiers: COPD type: emphysema Emphysema type: centrilobular Qualified Code(s): J43.2 - Centrilobular emphysema Code(s): J44.9 - Chronic obstructive pulmonary disease, unspecified Status: Acute Assessment and Plan: No complaints of shortness of breath, wheezes, endorses increased cough without sputum production Chronic not in exacerbation neb treatments Continue home inhalers breo ellipta On room air (6) GERD (gastroesophageal reflux disease): Code(s): K21.9 - Gastro-esophageal reflux disease without esophagitis Status: Acute Assessment and Plan: PPI (7) Non-small cell cancer of left lung: Code(s): C34.92 - Malignant neoplasm of unspecified part of left bronchus or lung Status: Acute Assessment and Plan: Patient not pursuing treatment Chest xray from 06/01/22 indicated stable masslike densities Repeat chest xray Stable airspace opacities in the upper lobes, likely a combination of granulomatous disease and radiation pneumonitis (8) Rheumatoid arthritis involving multiple sites with positive rheumatoid factor: Code(s): M05.79 - Rheumatoid arthritis with rheumatoid factor of multiple sites without organ or systems involvement Status: Acute Assessment and Plan: Tylenol as needed Continue home hydroxychloroquine Trend pain (9) Metastatic lung cancer (metastasis from lung to other site): Code(s): C34.90 - Malignant neoplasm of unspecified part of unspecified bronchus or lung Status: Acute Assessment and Plan: Supportive care (10) Mixed hyperlipidemia: Code(s): E78.2 - Mixed hyperlipidemia Status: Acute Assessment and Plan: Continue home rosuvastatin Lipid panel cholesterol 85, triglycerides
--- NOTE | 2022-06-08 11:02 | P.PNNP_ITS ---
Progress Note: A&P Assessment and Plan (1) KHANH (acute kidney injury): Code(s): N17.9 - Acute kidney failure, unspecified Status: Acute Assessment and Plan: * Acute kidney injury. * elevated on admission with a creatinine of 4.34 * On admission she had mild swelling but otherwise looked dehydrated. * evaluation to date: * urine electrolytes non-prerenal but she was on diuretics. * CPK okay * renal ultrasound without acute issues * suspicion falls on possible overdiuresis * She is getting IV fluids right now at65cc an hour. * She is eating fair but not great. * Will continue the IV fluids for now. * Check another set of labs tomorrow. * Long discussion with the patient and another long discussion with Radha her family member on the day of admission. (2) Stage 3b chronic kidney disease: Code(s): N18.32 - Chronic kidney disease, stage 3b Status: Chronic Assessment and Plan: * baseline creatinine seems to have fluctuated to extremes * seems to average out to ~ 1.2 - 1.8mg/dl * She is currently close to this. 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 UA showed no leukocytes and culture was negative earlier in May. * no clear source of infection at this time * holding antibiotics for now (4) CHF (congestive heart failure): Code(s): I50.9 - Heart failure, unspecified Status: Chronic Assessment and Plan: * recent hospitalization for an acute exacerbation * She did have chest x-ray showing volume overload as well as swelling. That is why she was started on diuretics. An echocardiogram done in January showed normal LV function as well as RV function. * Why she has the volume overload is unclear. * Perhaps a low albumin because she has not been eating in because she has cancer. However this does not explain the pulmonary infiltrates. Her chest x-ray does also show granulomatous disease and radiation pneumonitis. (5) Non-small cell cancer of left lung: Code(s): C34.92 - Malignant neoplasm of unspecified part of left bronchus or lung Status: Acute Assessment and Plan: * not pursuing any further treatment Will continue to follow. Subjective Date/time seen: 06/08/22 11:02 Interval history: 06/08/2022 Skylar is feeling better. She has a little bit of an appetite. He is going to eat some breakfast. She has no chest pain or shortness of breath. Swelling is not too bad today. Exam Narrative: General: WD/WN female in NAD Heart: normal S1 and S2; no rub or gallop Lungs: clear to auscultation Abdomen: soft, nontender, nondistended, positive bowel sounds Extremities: no cyanosis or clubbing; trace edema Skin: No rash Objective Data Vital Signs Vital Signs: Vital Signs - 24 hr 06/07/22 12:00 06/07/22 17:22 06/07/22 20:00 Temperature 97.9 F 98.0 F 97.7 F Pulse Rate 68 75 72 Respiratory Rate 18 18 16 Blood Pressure 128/52 L 122/43 L 102/39 L Pulse Oximetry 100 96 100 Oxygen Delivery 06/07/22 23:30 06/07/22 21:00 06/08/22 04:00 Temperature 98.2 F 97.6 F Pulse Rate 84 72 74 Respiratory Rate 16 16 Blood Pressur
--- NOTE | 2022-06-08 11:02 | PM.PNNEP ---
Progress Note: A&P Assessment and Plan (1) KHANH (acute kidney injury): Code(s): N17.9 - Acute kidney failure, unspecified Status: Acute Assessment and Plan: Acute kidney injury. elevated on admission with a creatinine of 4.34 On admission she had mild swelling but otherwise looked dehydrated. evaluation to date: urine electrolytes non-prerenal but she was on diuretics. CPK okay renal ultrasound without acute issues suspicion falls on possible overdiuresis She is getting IV fluids right now at65cc an hour. She is eating fair but not great. Will continue the IV fluids for now. Check another set of labs tomorrow. Long discussion with the patient and another long discussion with Radha her family member on the day of admission. (2) Stage 3b chronic kidney disease: Code(s): N18.32 - Chronic kidney disease, stage 3b Status: Chronic Assessment and Plan: baseline creatinine seems to have fluctuated to extremes seems to average out to ~ 1.2 - 1.8mg/dl She is currently close to this. 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 UA showed no leukocytes and culture was negative earlier in May. no clear source of infection at this time holding antibiotics for now (4) CHF (congestive heart failure): Code(s): I50.9 - Heart failure, unspecified Status: Chronic Assessment and Plan: recent hospitalization for an acute exacerbation She did have chest x-ray showing volume overload as well as swelling. That is why she was started on diuretics. An echocardiogram done in January showed normal LV function as well as RV function. Why she has the volume overload is unclear. Perhaps a low albumin because she has not been eating in because she has cancer. However this does not explain the pulmonary infiltrates. Her chest x-ray does also show granulomatous disease and radiation pneumonitis. (5) Non-small cell cancer of left lung: Code(s): C34.92 - Malignant neoplasm of unspecified part of left bronchus or lung Status: Acute Assessment and Plan: not pursuing any further treatment Will continue to follow. Subjective Date/time seen: 06/08/22 11:02 Interval history: 06/08/2022 Skylar is feeling better. She has a little bit of an appetite. He is going to eat some breakfast. She has no chest pain or shortness of breath. Swelling is not too bad today. Exam Narrative: General: WD/WN female in NAD Heart: normal S1 and S2; no rub or gallop Lungs: clear to auscultation Abdomen: soft, nontender, nondistended, positive bowel sounds Extremities: no cyanosis or clubbing; trace edema Skin: No rash Objective Data Vital Signs Vital Signs: Vital Signs - 24 hr 06/07/22 12:00 06/07/22 17:22 06/07/22 20:00 Temperature 97.9 F 98.0 F 97.7 F Pulse Rate 68 75 72 Respiratory Rate 18 18 16 Blood Pressure 128/52 L 122/43 L 102/39 L Pulse Oximetry 100 96 100 Oxygen Delivery 06/07/22 23:30 06/07/22 21:00 06/08/22 04:00 Temperature 98.2 F 97.6 F Pulse Rate 84 72 74 Respiratory Rate 16 16 Blood Pressure 128/39 L 115/40 L Pulse Oximetry 95 94 Oxygen Delivery 06/08/22 08:30 06/08/22 08:31 06/08/22 08:00 Temperature 98.0 F Pulse Rate 72 72 73 Respiratory Rate 18 Blood Pressure 113/41 L Pulse Oximetry 95 Oxygen Delivery 06/08/22 08:38 06/08/22 08:52 06/08/22 08:30 Temperature Pulse Rate 74 76 Respiratory Rate 22 H 20 Blood Pressure Pulse Oximetry Oxygen Delivery Room Air Intake/Output Intake/Output: Intake & Output 06/05/22 06/06/22 06/07/22 06/08/22 23:59 23:59 23:59 23:59 Intake Total 2920 3950 1870 Output Total 850 1600 450 Balance 2070 2350 1420
[2022-06-08] MEDS: PERFLUTREN LIPID MICROSPHERES 1.5 ML VIAL DILUTED TO 10 ML TOTAL VOLUME IV PUSH (14:00)
[2022-06-08] MEDS: RIVAROXABAN 20 MG TABLET PO (17:08)
[2022-06-08] MEDS: ROSUVASTATIN 10 MG TABLET PO (20:51)
[2022-06-09] VITALS (8 sets, daily range): BP systolic 102–129; BP diastolic 41–53; PULSE 56–70; RESP 14–20; TEMP 36.1–36.9; O2SAT 93–97
[2022-06-09 05:36] LABS: Basophils Absolute Auto 0.1 K/mm3 (0.0-0.1); Basophils Percent Auto 0.7 % (0.2-1.2); Eosinophils Percent Auto 0.1 % (0-4.4); Hematocrit 30.4 % (37.0-47.0); Hemoglobin 9.7 g/dL (12.0-15.0); Immature Granulocyte Absolute 0.07 K/mm3 (0.00-0.031); Immature Granulocyte Percent A 0.4 % (0-0.5); Lymphocytes Absolute Auto 1.83 K/mm3 (0.9-3.2); Lymphocytes Percent Auto 11.5 % (18.3-44.2); Mean Corpuscular HGB Conc 31.9 g/dl (32-36); Mean Platelet Volume 9.1 fl (7.4-10.4); Monocytes Absolute Auto 0.6 K/mm3 (0.1-0.6); Neutrophils Absolute Auto 13.3 K/mm3 (1.3-6.7); Neutrophils Percent Auto 83.3 % (45.5-73.1); Platelet Count Result 226 k/mm3 (150-375); Red Blood Count 3.34 M/mm3 (4.2-5.4); Red Cell Distribution Width 17.2 % (11.5-14.5); White Blood Count 15.9 K/mm3 (4.5-10.0)
[2022-06-09 05:52] LABS: Alanine Aminotransferase 31 U/L (6-35); Albumin Level 3.2 g/dL (3.5-5.1); Alkaline Phosphatase 161 U/L (38-126); Anion Gap 6 mmol/L (8-16); Aspartate Amino Transferase 42 U/L (14-36); Bilirubin,Total 0.9 mg/dL (0.2-1.3); Blood Urea Nitrogen 29 mg/dL (7-17); Calcium 8.5 mg/dL (8.4-10.2); Carbon Dioxide 24 mmol/L (22-30); Chloride 104 mmol/L (98-107); Estimated CRCL calculation 21 ml/min; Estimated Glomerular Filt Rate 24; Glucose 89 mg/dL (65-110); Potassium 3.5 mmol/L (3.4-5.0); Sodium 134 mmol/L (137-145)
[2022-06-09] MEDS: HYDROXYCHLOROQUINE SULFATE 200 MG TABLET 400 MG PO (07:59)
[2022-06-09] MEDS: METOPROLOL TARTRATE 50 MG TAB 100 MG PO (08:00)
[2022-06-09] MEDS: PANTOPRAZOLE 40 MG TABLET PO (08:01)
[2022-06-09] MEDS: MULTIVITAMINS THERAPEUTIC TAB (*BKC) 1 TABLET BY MOUTH (08:01)
[2022-06-09] MEDS: FOLIC ACID 1 MG TABLET PO (08:01)
[2022-06-09] MEDS: AMIODARONE HCL 200 MG TABLET PO (08:01)
[2022-06-09] MEDS: FLUTICASONE/SALMETEROL 115-21 MCG INHALER 1 PUFF 2 PUFF INHALATION (08:48)
--- NOTE | 2022-06-09 08:51 | P.PNNP_ITS ---
Progress Note: A&P Assessment and Plan (1) KHANH (acute kidney injury): Code(s): N17.9 - Acute kidney failure, unspecified Status: Acute Assessment and Plan: * Acute kidney injury. * elevated on admission with a creatinine of 4.34 * On admission she had mild swelling but otherwise looked dehydrated. * evaluation to date: * urine electrolytes non-prerenal but she was on diuretics. * CPK okay * renal ultrasound without acute issues * Likely dehydration is the cause. * She is getting IV fluids. * She is eating better. * Will stop the IV fluids. * She has some left arm swelling. Is already on anticoagulants. She has had blood clots in the past. * Okay for discharge whenever everyone else is ready (2) Stage 3b chronic kidney disease: Code(s): N18.32 - Chronic kidney disease, stage 3b Status: Chronic Assessment and Plan: * baseline creatinine seems to have fluctuated to extremes * seems to average out to ~ 1.2 - 1.8mg/dl * She is currently stable at 2.0. 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 UA showed no leukocytes and culture was negative earlier in May. * no clear source of infection at this time * holding antibiotics for now (4) CHF (congestive heart failure): Code(s): I50.9 - Heart failure, unspecified Status: Chronic Assessment and Plan: * recent hospitalization for an acute exacerbation * An echocardiogram done in January showed normal LV function as well as RV function. * Why she has the volume overload is unclear. * Perhaps a low albumin because she has not been eating in because she has cancer. However this does not explain the pulmonary infiltrates. Her chest x-ray does also show granulomatous disease and radiation pneumonitis. (5) Non-small cell cancer of left lung: Code(s): C34.92 - Malignant neoplasm of unspecified part of left bronchus or lung Status: Acute Assessment and Plan: * not pursuing any further treatment Subjective Date/time seen: 06/09/22 08:51 Interval history: 06/08/2022 Skylar is feeling better. She has a little bit of an appetite. He is going to eat some breakfast. She has no chest pain or shortness of breath. Swelling is not too bad today. 06/09/2022 Skylar is eager for discharge. She has a little swelling in her left arm. She thinks it is the IV. No chest pain or shortness of breath. Minimal swelling Exam Narrative: General: WD/WN female in NAD Heart: normal S1 and S2; no rub or gallop Lungs: clear Abdomen: soft, nontender, nondistended, positive bowel sounds Extremities: no cyanosis or clubbing; trace edema Skin: No rash or subQ not Objective Data Vital Signs Vital Signs: Vital Signs - 24 hr 06/08/22 08:52 06/08/22 12:00 06/08/22 16:00 Temperature 97.0 F L 97.6 F Pulse Rate 76 63 66 Respiratory Rate 20 18 16 Blood Pressure 111/37 L 115/41 L Pulse Oximetry 96 97 Oxygen Delivery 06/08/22 20:51 06/08/22 21:02 06/08/22 21:08 Temperature 97.8 F Pulse Rate 65 65 78 Respiratory Rate 20 20 Blood Pressure 113/44 L Pulse Oximetr
--- NOTE | 2022-06-09 08:51 | PM.PNNEP ---
Progress Note: A&P Assessment and Plan (1) KHANH (acute kidney injury): Code(s): N17.9 - Acute kidney failure, unspecified Status: Acute Assessment and Plan: Acute kidney injury. elevated on admission with a creatinine of 4.34 On admission she had mild swelling but otherwise looked dehydrated. evaluation to date: urine electrolytes non-prerenal but she was on diuretics. CPK okay renal ultrasound without acute issues Likely dehydration is the cause. She is getting IV fluids. She is eating better. Will stop the IV fluids. She has some left arm swelling. Is already on anticoagulants. She has had blood clots in the past. Okay for discharge whenever everyone else is ready (2) Stage 3b chronic kidney disease: Code(s): N18.32 - Chronic kidney disease, stage 3b Status: Chronic Assessment and Plan: baseline creatinine seems to have fluctuated to extremes seems to average out to ~ 1.2 - 1.8mg/dl She is currently stable at 2.0. 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 UA showed no leukocytes and culture was negative earlier in May. no clear source of infection at this time holding antibiotics for now (4) CHF (congestive heart failure): Code(s): I50.9 - Heart failure, unspecified Status: Chronic Assessment and Plan: recent hospitalization for an acute exacerbation An echocardiogram done in January showed normal LV function as well as RV function. Why she has the volume overload is unclear. Perhaps a low albumin because she has not been eating in because she has cancer. However this does not explain the pulmonary infiltrates. Her chest x-ray does also show granulomatous disease and radiation pneumonitis. (5) Non-small cell cancer of left lung: Code(s): C34.92 - Malignant neoplasm of unspecified part of left bronchus or lung Status: Acute Assessment and Plan: not pursuing any further treatment Subjective Date/time seen: 06/09/22 08:51 Interval history: 06/08/2022 Skylar is feeling better. She has a little bit of an appetite. He is going to eat some breakfast. She has no chest pain or shortness of breath. Swelling is not too bad today. 06/09/2022 Skylar is eager for discharge. She has a little swelling in her left arm. She thinks it is the IV. No chest pain or shortness of breath. Minimal swelling Exam Narrative: General: WD/WN female in NAD Heart: normal S1 and S2; no rub or gallop Lungs: clear Abdomen: soft, nontender, nondistended, positive bowel sounds Extremities: no cyanosis or clubbing; trace edema Skin: No rash or subQ not Objective Data Vital Signs Vital Signs: Vital Signs - 24 hr 06/08/22 08:52 06/08/22 12:00 06/08/22 16:00 Temperature 97.0 F L 97.6 F Pulse Rate 76 63 66 Respiratory Rate 20 18 16 Blood Pressure 111/37 L 115/41 L Pulse Oximetry 96 97 Oxygen Delivery 06/08/22 20:51 06/08/22 21:02 06/08/22 21:08 Temperature 97.8 F Pulse Rate 65 65 78 Respiratory Rate 20 20 Blood Pressure 113/44 L Pulse Oximetry 98 Oxygen Delivery 06/09/22 01:14 06/09/22 06:00 06/09/22 08:00 Temperature 97.0 F L 97.3 F L Pulse Rate 64 62 68 Respiratory Rate 18 18 Blood Pressure 129/53 L 110/41 L Pulse Oximetry 95 95 Oxygen Delivery 06/09/22 08:01 06/09/22 08:05 06/09/22 07:55 Temperature 97.6 F Pulse Rate 68 63 Respiratory Rate 16 Blood Pressure 116/46 L Pulse Oximetry 93 Oxygen Delivery Room Air Intake/Output Intake/Output: Intake & Output 06/06/22 06/07/22 06/08/22 06/09/22 23:59 23:59 23:59 23:59 Intake Total 2920 3950 3350 300 Output Total 850 1600 800 400 Balance 2070 2350 2550 -100 Meds/Resu
--- NOTE | 2022-06-09 10:30 | P.DS_ITS ---
DS: Admitting Diagnosis Discharge Date 06/09/2022 1030 Admitting Diagnosis acute on chronic kidney DS: Discharge Diagnosis Discharge Diagnosis (1) Acute kidney injury superimposed on CKD: Code(s): N17.9 - Acute kidney failure, unspecified; N18.9 - Chronic kidney disease, unspecified Status: Acute Assessment and Plan: * BUN/Cr upon arrival was 54/4.34 * Currently trending down to 29/2.00 * Nephrology consulted * Urine studies Na 39, Urea 384, Cr 63.8 * FENA score 1.7 intrinsic disease * CK 65 * Trend labs * Avoid nephrotoxic medications * Ultrasound does not indicate any abnormalities * Renal adjust medications * IV fluids NaCl 65ml/hr (2) Hyponatremia: Code(s): E87.1 - Hypo-osmolality and hyponatremia Status: Acute Assessment and Plan: * Current sodium is 134 * Continue to trend sodium * Could be a component of fluid overload * NS at 65ml/hr * Urine studies Na 39, Urea 384, Cr 63.8 * FENA score 1.7 intrinsic disease * Continue to trend labs * Adjust therapy as indicate (3) Leucocytosis: Code(s): D72.829 - Elevated white blood cell count, unspecified Status: Acute Assessment and Plan: * WBC at last discharge was 22.5, 31.6 upon arrival * Currently WBC 15.9 * UA does not appear infectious * Blood cultures ordered * Chest xray stable airspace opacities in the upper lobes likely granulomatous disease and radiation pneumonitis * Continue to trend labs * Consider antibiotics * no source of infection noted * Does appear to be recently on antibiotics, no complaints of diarrhea at this time (4) COPD (chronic obstructive pulmonary disease): Qualifiers: COPD type: emphysema Emphysema type: centrilobular Qualified Code(s): J43.2 - Centrilobular emphysema Code(s): J44.9 - Chronic obstructive pulmonary disease, unspecified Status: Acute Assessment and Plan: * No complaints of shortness of breath, wheezes, endorses increased cough without sputum production * Chronic not in exacerbation * neb treatments * Continue home inhalers breo ellipta * On room air (5) GERD (gastroesophageal reflux disease): Code(s): K21.9 - Gastro-esophageal reflux disease without esophagitis Status: Acute Assessment and Plan: * PPI (6) Non-small cell cancer of left lung: Code(s): C34.92 - Malignant neoplasm of unspecified part of left bronchus or lung Status: Acute Assessment and Plan: * Patient not pursuing treatment * Chest xray from 06/01/22 indicated stable masslike densities * Repeat chest xray Stable airspace opacities in the upper lobes, likely a combination of granulomatous disease and radiation pneumonitis (7) Rheumatoid arthritis involving multiple sites with positive rheumatoid factor: Code(s): M05.79 - Rheumatoid arthritis with rheumatoid factor of multiple sites without organ or systems involvement Status: Acute Assessment and Plan: * Tylenol as needed * Continue home hydroxychloroquine * Trend pain (8) Metastatic lung cancer (metastasis from lung to other site): Code(s): C34.90 - Malignant neoplasm of unspecified part of unspecified bronchus or lung Status: Acute A
--- NOTE | 2022-06-09 10:30 | PM.DS ---
DS: Admitting Diagnosis Discharge Date 06/09/2022 1030 Admitting Diagnosis acute on chronic kidney DS: Discharge Diagnosis Discharge Diagnosis (1) Acute kidney injury superimposed on CKD: Code(s): N17.9 - Acute kidney failure, unspecified; N18.9 - Chronic kidney disease, unspecified Status: Acute Assessment and Plan: BUN/Cr upon arrival was 54/4.34 Currently trending down to 29/2.00 Nephrology consulted Urine studies Na 39, Urea 384, Cr 63.8 FENA score 1.7 intrinsic disease CK 65 Trend labs Avoid nephrotoxic medications Ultrasound does not indicate any abnormalities Renal adjust medications IV fluids NaCl 65ml/hr (2) Hyponatremia: Code(s): E87.1 - Hypo-osmolality and hyponatremia Status: Acute Assessment and Plan: Current sodium is 134 Continue to trend sodium Could be a component of fluid overload NS at 65ml/hr Urine studies Na 39, Urea 384, Cr 63.8 FENA score 1.7 intrinsic disease Continue to trend labs Adjust therapy as indicate (3) Leucocytosis: Code(s): D72.829 - Elevated white blood cell count, unspecified Status: Acute Assessment and Plan: WBC at last discharge was 22.5, 31.6 upon arrival Currently WBC 15.9 UA does not appear infectious Blood cultures ordered Chest xray stable airspace opacities in the upper lobes likely granulomatous disease and radiation pneumonitis Continue to trend labs Consider antibiotics no source of infection noted Does appear to be recently on antibiotics, no complaints of diarrhea at this time (4) COPD (chronic obstructive pulmonary disease): Qualifiers: COPD type: emphysema Emphysema type: centrilobular Qualified Code(s): J43.2 - Centrilobular emphysema Code(s): J44.9 - Chronic obstructive pulmonary disease, unspecified Status: Acute Assessment and Plan: No complaints of shortness of breath, wheezes, endorses increased cough without sputum production Chronic not in exacerbation neb treatments Continue home inhalers breo ellipta On room air (5) GERD (gastroesophageal reflux disease): Code(s): K21.9 - Gastro-esophageal reflux disease without esophagitis Status: Acute Assessment and Plan: PPI (6) Non-small cell cancer of left lung: Code(s): C34.92 - Malignant neoplasm of unspecified part of left bronchus or lung Status: Acute Assessment and Plan: Patient not pursuing treatment Chest xray from 06/01/22 indicated stable masslike densities Repeat chest xray Stable airspace opacities in the upper lobes, likely a combination of granulomatous disease and radiation pneumonitis (7) Rheumatoid arthritis involving multiple sites with positive rheumatoid factor: Code(s): M05.79 - Rheumatoid arthritis with rheumatoid factor of multiple sites without organ or systems involvement Status: Acute Assessment and Plan: Tylenol as needed Continue home hydroxychloroquine Trend pain (8) Metastatic lung cancer (metastasis from lung to other site): Code(s): C34.90 - Malignant neoplasm of unspecified part of unspecified bronchus or lung Status: Acute Assessment and Plan: Supportive care (9) Mixed hyperlipidemia: Code(s): E78.2 - Mixed hyperlipidemia Status: Acute Assessment and Plan: Continue home rosuvastatin Lipid panel cholesterol 85, triglycerides 85, LDL 35, HDL 30 Adjust medications as indicated (10) CHF (congestive heart failure): Code(s): I50.9 - Heart failure, unspecified Status: Chronic Assessment and Plan: Recently treated for an acute exacerbation Echo from 01/2022 showed EF of >70% with no abnormalities noted Most likely chronic diastolic heart failure not in acute exacerbation BNP 4090 Lasix on
[2022-06-10 14:36] LABS: Osmolality, Urine 296 mOsm/kg (50-1200)
== END 2022-06-09 14:25 | disposition home or self-care (01) | DRG 683 ==
PROVIDERS: Internal Medicine; Internal Medicine Nephrology; Admitting Provider Student in an Organized Health Care Education/Training Program; PCP Family Medicine; Visit Provider Nurse Practitioner
DX: N17.9 Acute kidney failure, unspecified (principal); C34.92 Malignant neoplasm of unspecified part of left bronchus or lung; E87.1 Hypo-osmolality and hyponatremia; I50.32 Chronic diastolic (congestive) heart failure; N18.32 Chronic kidney disease, stage 3b; Z23 Encounter for immunization; J43.2 Centrilobular emphysema; K21.9 Gastro-esophageal reflux disease without esophagitis; M05.79 Rheumatoid arthritis with rheumatoid factor of multiple sites without organ or systems involvement; E78.2 Mixed hyperlipidemia; D63.1 Anemia in chronic kidney disease; F32.4 Major depressive disorder, single episode, in partial remission; Z87.891 Personal history of nicotine dependence; Z79.899 Other long term (current) drug therapy; Z80.0 Family history of malignant neoplasm of digestive organs; Z80.1 Family history of malignant neoplasm of trachea, bronchus and lung
CPT/HCPCS: 36415; 71045; 80048; 80053; 80061; 80069; 80074; 81001; 82550; 82570; 82607; 82728; 82746; 83540; 83550; 83605; 83735; 83880; 83935; 84100; 84300; 84439; 84443; 84466; 84540; 85025; 86160; 87040; 90471; 90694; 94640; 96361; 96374; A9270; C8929; G0008; G0378; J3475; J7030; Q9957